=== PATIENT | female | born 1955 | race Caucasian/White ===

== ENCOUNTER → 2021-03-22 05:50 | Outpatient (REF) | payer MEDICAID, SELFPAY ==
[2021-03-22 08:38] LABS: Hematocrit 35.2 % (37-47); Hemoglobin 10.5 g/dL (12.0-15.0); Mean Corp Hgb Conc 29.8 g/dL (32-36); Mean Corpuscular Volume 97.2 fL (81-99); Mean Platelet Vol. 11.2 fl (6.2-12.0); Platelet Count 118 K/mm3 (150-450); RBC Distribution Width CV 17.2 % (11.6-14.6); RBC Distribution Width SD 59.1 fl (35.1-43.9); Red Blood Count 3.62 M/mm3 (4.2-5.4); White Blood Count 8.3 K/mm3 (4.4-11.0)
[2021-03-22 09:06] LABS: BUN 27 mg/dL (7-18); Creatinine, Serum 0.85 mg/dL (0.55-1.02); Glucose 181 mg/dL (74-106)
[2021-03-22 09:07] LABS: ALB/GLOB Ratio 0.8 RATIO (0.9-2.4); AST(SGOT) 12 U/L (15-37); Alanine Aminotransfer ALT/SGPT 13 U/L (13-56); Albumin, Serum 2.5 g/dL (3.2-5.0); Alkaline Phosphatase 75 U/L (45-117); Anion Gap 6 (5-15); BUN/Creat Ratio 31.7 RATIO (10-20); Calcium,Total 8.5 mg/dL (8.5-10.1); Chloride 105 mmol/L (98-107); EST Glomerular Filtration Rate 71 mL/min (>60); Est Glom Filt Rate - Afr Amer 86 mL/min (>60); Globulin 3.3 g/dL (2.2-4.2); Potassium 4.1 mmol/L (3.5-5.1); Protein, Total 5.8 g/dL (6.4-8.2); Sodium Level 140 mmol/L (136-145)
== END ==
LOC: OLS.SW500 05:50
PROVIDERS: Visit Provider Family Medicine
DX: E11.9 Type 2 diabetes mellitus without complications (principal); J44.9 Chronic obstructive pulmonary disease, unspecified
CPT/HCPCS: 36415; 80053; 85027

== ENCOUNTER → 2021-03-29 05:00 | Outpatient (REF) | payer MEDICAID, SELFPAY ==
[2021-03-29 08:14] LABS: Hematocrit 31.8 % (37-47); Mean Corp Hgb Conc 31.4 g/dL (32-36); Mean Corpuscular Volume 92.2 fL (81-99); Mean Platelet Vol. 10.8 fl (6.2-12.0); Platelet Count 163 K/mm3 (150-450); RBC Distribution Width SD 51.3 fl (35.1-43.9); Red Blood Count 3.45 M/mm3 (4.2-5.4); White Blood Count 8.2 K/mm3 (4.4-11.0)
[2021-03-29 08:23] LABS: ALB/GLOB Ratio 0.8 RATIO (0.9-2.4); AST(SGOT) 11 U/L (15-37); Alanine Aminotransfer ALT/SGPT 10 U/L (13-56); Albumin, Serum 2.6 g/dL (3.2-5.0); Alkaline Phosphatase 71 U/L (45-117); Anion Gap 4 (5-15); BUN 25 mg/dL (7-18); BUN/Creat Ratio 25.7 RATIO (10-20); Calcium,Total 8.9 mg/dL (8.5-10.1); Chloride 105 mmol/L (98-107); Creatinine, Serum 0.97 mg/dL (0.55-1.02); EST Glomerular Filtration Rate 61 mL/min (>60); Est Glom Filt Rate - Afr Amer 74 mL/min (>60); Globulin 3.4 g/dL (2.2-4.2); Glucose 261 mg/dL (74-106); Sodium Level 142 mmol/L (136-145)
== END ==
LOC: OLS.SW500 05:00
PROVIDERS: Visit Provider Family Medicine
DX: E11.9 Type 2 diabetes mellitus without complications (principal)
CPT/HCPCS: 36415; 80053; 85027

== ENCOUNTER → 2021-04-05 05:00 | Outpatient (REF) | payer MEDICAID, SELFPAY ==
[2021-04-05 07:45] LABS: Hematocrit 33.5 % (37-47); Hemoglobin 10.3 g/dL (12.0-15.0); Mean Corp Hgb Conc 30.7 g/dL (32-36); Mean Corpuscular Hgb 28.5 pg (27.0-32.0); Mean Corpuscular Volume 92.8 fL (81-99); Mean Platelet Vol. 10.7 fl (6.2-12.0); Platelet Count 210 K/mm3 (150-450); RBC Distribution Width CV 14.9 % (11.6-14.6); Red Blood Count 3.61 M/mm3 (4.2-5.4); White Blood Count 14.8 K/mm3 (4.4-11.0)
[2021-04-05 07:51] LABS: ALB/GLOB Ratio 0.8 RATIO (0.9-2.4); AST(SGOT) 12 U/L (15-37); Alanine Aminotransfer ALT/SGPT 11 U/L (13-56); Albumin, Serum 2.7 g/dL (3.2-5.0); Alkaline Phosphatase 95 U/L (45-117); Anion Gap 4 (5-15); BUN 25 mg/dL (7-18); BUN/Creat Ratio 25.2 RATIO (10-20); Calcium,Total 9.2 mg/dL (8.5-10.1); Chloride 104 mmol/L (98-107); Creatinine, Serum 0.99 mg/dL (0.55-1.02); EST Glomerular Filtration Rate 60 mL/min (>60); Est Glom Filt Rate - Afr Amer 72 mL/min (>60); Globulin 3.5 g/dL (2.2-4.2); Glucose 305 mg/dL (74-106); Potassium 4.1 mmol/L (3.5-5.1); Protein, Total 6.2 g/dL (6.4-8.2); Sodium Level 139 mmol/L (136-145)
== END ==
LOC: OLS.SW500 05:00
PROVIDERS: Visit Provider Family Medicine
DX: D64.9 Anemia, unspecified (principal); J44.9 Chronic obstructive pulmonary disease, unspecified; E11.9 Type 2 diabetes mellitus without complications
CPT/HCPCS: 36415; 80053; 85027

== ENCOUNTER → 2021-04-11 16:10 | Outpatient (REF) | payer MEDICAID, SELFPAY ==
[2021-04-11 16:35] LABS: Absolute Lymphocyte Count 1.03 X10^3/uL (0.83-4.51); Absolute Neutrophil Count 11.2 X10^3/uL (2.0-7.7); Basophil# 0.02 X10^3/uL; Basophil% 0.1 % (0-1); Eosinophil# 0.05 X10^3/uL; Eosinophils% 0.4 % (0-5); Hematocrit 32.1 % (37-47); Hemoglobin 9.9 g/dL (12.0-15.0); Lymphocyte # 1.03 X10^3/ul (0.83-4.51); Lymphocyte % 7.6 % (19-41); Mean Corp Hgb Conc 30.8 g/dL (32-36); Mean Corpuscular Hgb 28.4 pg (27.0-32.0); Mean Corpuscular Volume 92.2 fL (81-99); Mean Platelet Vol. 10.1 fl (6.2-12.0); Monocyte# 1.15 X10^3/uL; Monocyte% 8.5 % (0-10); NRBC Flagged by Analyzer 0 % (0-5); Neutrophil # 11.19 X10^3/uL (2.7-7.7); Neutrophil % 82.8 % (47-70); Platelet Count 177 K/mm3 (150-450); RBC Distribution Width CV 14.2 % (11.6-14.6); RBC Distribution Width SD 45.9 fl (35.1-43.9); Red Blood Count 3.48 M/mm3 (4.2-5.4); White Blood Count 13.5 K/mm3 (4.4-11.0)
[2021-04-11 16:58] LABS: Anion Gap 4 (5-15); BUN 21 mg/dL (7-18); BUN/Creat Ratio 21.4 RATIO (10-20); Calcium,Total 9.1 mg/dL (8.5-10.1); Chloride 103 mmol/L (98-107); Creatinine, Serum 0.98 mg/dL (0.55-1.02); EST Glomerular Filtration Rate 60 mL/min (>60); Est Glom Filt Rate - Afr Amer 73 mL/min (>60); Glucose 248 mg/dL (74-106); Potassium 4.4 mmol/L (3.5-5.1); Sodium Level 139 mmol/L (136-145)
== END ==
LOC: OLS.SW500 16:10
PROVIDERS: Visit Provider Family Medicine
DX: D50.0 Iron deficiency anemia secondary to blood loss (chronic) (principal)
CPT/HCPCS: 36415; 80048; 85025

== ENCOUNTER → 2021-04-12 05:00 | Outpatient (REF) | payer MEDICAID, SELFPAY ==
[2021-04-12 08:51] LABS: Hematocrit 31.2 % (37-47); Hemoglobin 9.5 g/dL (12.0-15.0); Mean Corp Hgb Conc 30.4 g/dL (32-36); Mean Corpuscular Hgb 28.4 pg (27.0-32.0); Mean Corpuscular Volume 93.1 fL (81-99); Mean Platelet Vol. 10.7 fl (6.2-12.0); Platelet Count 169 K/mm3 (150-450); RBC Distribution Width CV 14.2 % (11.6-14.6); RBC Distribution Width SD 46.9 fl (35.1-43.9); Red Blood Count 3.35 M/mm3 (4.2-5.4); White Blood Count 6.8 K/mm3 (4.4-11.0)
[2021-04-12 09:20] LABS: ALB/GLOB Ratio 0.9 RATIO (0.9-2.4); AST(SGOT) 12 U/L (15-37); Alanine Aminotransfer ALT/SGPT 9 U/L (13-56); Albumin, Serum 2.7 g/dL (3.2-5.0); Alkaline Phosphatase 82 U/L (45-117); Anion Gap 5 (5-15); BUN 22 mg/dL (7-18); BUN/Creat Ratio 23.7 RATIO (10-20); Calcium,Total 8.9 mg/dL (8.5-10.1); Chloride 104 mmol/L (98-107); Creatinine, Serum 0.93 mg/dL (0.55-1.02); EST Glomerular Filtration Rate 64 mL/min (>60); Est Glom Filt Rate - Afr Amer 78 mL/min (>60); Globulin 3.1 g/dL (2.2-4.2); Glucose 196 mg/dL (74-106); Protein, Total 5.8 g/dL (6.4-8.2); Sodium Level 139 mmol/L (136-145)
== END ==
LOC: OLS.SW500 05:00
PROVIDERS: Visit Provider Family Medicine
DX: I48.91 Unspecified atrial fibrillation (principal); J44.9 Chronic obstructive pulmonary disease, unspecified; E11.9 Type 2 diabetes mellitus without complications
CPT/HCPCS: 36415; 80053; 85027

== ENCOUNTER → 2021-04-16 04:50 | Outpatient (REF) | payer MEDICAID, SELFPAY ==
[2021-04-16 09:34] LABS: Mucous, Urine 0 SEEN /hpf (<or=2+)
[2021-04-16 10:15] LABS: Color, Urine Yellow (Yellow); Glucose, Dipstick Normal (Normal); Ketone-Dipstick 50 mg/dl (Negative); Leukocyte Esterase-Dipstick 500 /ul (Negative); Nitrite-Dipstick Positive (Negative); Occult Blood-Urine 150 /ul (Negative); Protein-Dipstick 30 mg/dl (Negative); Specific Gravity, Urine 1.025 (1.002-1.030); Urine Bilirubin Dipstick Negative (Negative); Urine Clarity Cloudy (Clear); Urine Urobilinogen Normal (Normal)
[2021-04-16 10:31] LABS: Bacteria 4+ /hpf (None Seen); Calcium Oxalate Crystals Ur 1+ /hpf (<or=2+); Red Blood Cells-Urine 10-25 SEEN /hpf (0-5); Squamous Epithelial Cells - UA 0-5 SEEN /hpf (5-10); White Blood Cells >100 SEEN /hpf (0-5)
== END ==
LOC: OLS.SW500 04:50
PROVIDERS: Referring Provider Family Medicine; Visit Provider Family Medicine
DX: N39.0 Urinary tract infection, site not specified (principal); E11.9 Type 2 diabetes mellitus without complications; R10.30 Lower abdominal pain, unspecified
CPT/HCPCS: 81001; 87086; 87088

== ENCOUNTER → 2021-04-19 05:00 | Outpatient (REF) | payer MEDICAID, SELFPAY ==
[2021-04-19 08:07] LABS: Hematocrit 33.8 % (37-47); Hemoglobin 10.4 g/dL (12.0-15.0); Mean Corp Hgb Conc 30.8 g/dL (32-36); Mean Corpuscular Volume 91.1 fL (81-99); Mean Platelet Vol. 10.6 fl (6.2-12.0); Platelet Count 143 K/mm3 (150-450); RBC Distribution Width CV 13.9 % (11.6-14.6); RBC Distribution Width SD 46.7 fl (35.1-43.9); Red Blood Count 3.71 M/mm3 (4.2-5.4); White Blood Count 6.7 K/mm3 (4.4-11.0)
[2021-04-19 08:47] LABS: AST(SGOT) 15 U/L (15-37); Alanine Aminotransfer ALT/SGPT 9 U/L (13-56); Albumin, Serum 2.9 g/dL (3.2-5.0); Alkaline Phosphatase 80 U/L (45-117); Anion Gap 3 (5-15); BUN 16 mg/dL (7-18); BUN/Creat Ratio 18.1 RATIO (10-20); Calcium,Total 8.5 mg/dL (8.5-10.1); Chloride 104 mmol/L (98-107); Creatinine, Serum 0.88 mg/dL (0.55-1.02); EST Glomerular Filtration Rate 68 mL/min (>60); Est Glom Filt Rate - Afr Amer 83 mL/min (>60); Glucose 146 mg/dL (74-106); Potassium 3.5 mmol/L (3.5-5.1); Protein, Total 5.9 g/dL (6.4-8.2); Sodium Level 140 mmol/L (136-145)
== END ==
LOC: OLS.SW500 05:00
PROVIDERS: Visit Provider Family Medicine
DX: D64.9 Anemia, unspecified (principal)
CPT/HCPCS: 36415; 80053; 85027

== ENCOUNTER → 2021-04-26 05:00 | Outpatient (REF) | payer MEDICAID, SELFPAY ==
[2021-04-26 08:03] LABS: Hematocrit 36.2 % (37-47); Mean Corp Hgb Conc 30.4 g/dL (32-36); Mean Corpuscular Hgb 27.8 pg (27.0-32.0); Mean Corpuscular Volume 91.6 fL (81-99); Mean Platelet Vol. 10.8 fl (6.2-12.0); Platelet Count 127 K/mm3 (150-450); RBC Distribution Width CV 13.8 % (11.6-14.6); RBC Distribution Width SD 46.4 fl (35.1-43.9); Red Blood Count 3.95 M/mm3 (4.2-5.4); White Blood Count 6.3 K/mm3 (4.4-11.0)
[2021-04-26 08:28] LABS: ALB/GLOB Ratio 0.9 RATIO (0.9-2.4); AST(SGOT) 14 U/L (15-37); Alanine Aminotransfer ALT/SGPT 10 U/L (13-56); Albumin, Serum 2.7 g/dL (3.2-5.0); Alkaline Phosphatase 73 U/L (45-117); Anion Gap 3 (5-15); BUN 13 mg/dL (7-18); BUN/Creat Ratio 15.8 RATIO (10-20); Calcium,Total 8.7 mg/dL (8.5-10.1); Chloride 108 mmol/L (98-107); Creatinine, Serum 0.82 mg/dL (0.55-1.02); EST Glomerular Filtration Rate 74 mL/min (>60); Est Glom Filt Rate - Afr Amer 90 mL/min (>60); Globulin 3.1 g/dL (2.2-4.2); Glucose 120 mg/dL (74-106); Potassium 3.7 mmol/L (3.5-5.1); Protein, Total 5.8 g/dL (6.4-8.2); Sodium Level 141 mmol/L (136-145)
== END ==
LOC: OLS.SW500 05:00
PROVIDERS: Visit Provider Family Medicine
DX: D50.0 Iron deficiency anemia secondary to blood loss (chronic) (principal); J44.9 Chronic obstructive pulmonary disease, unspecified; K56.7 Ileus, unspecified
CPT/HCPCS: 36415; 80053; 85027

== ENCOUNTER → 2021-05-03 05:00 | Outpatient (REF) | payer MEDICAID, SELFPAY ==
[2021-05-03 07:24] LABS: Hematocrit 37.5 % (37-47); Hemoglobin 11.2 g/dL (12.0-15.0); Mean Corp Hgb Conc 29.9 g/dL (32-36); Mean Corpuscular Hgb 27.5 pg (27.0-32.0); Mean Corpuscular Volume 91.9 fL (81-99); Mean Platelet Vol. 11.1 fl (6.2-12.0); Platelet Count 124 K/mm3 (150-450); RBC Distribution Width CV 13.9 % (11.6-14.6); Red Blood Count 4.08 M/mm3 (4.2-5.4); White Blood Count 5.7 K/mm3 (4.4-11.0)
[2021-05-03 07:58] LABS: ALB/GLOB Ratio 0.8 RATIO (0.9-2.4); AST(SGOT) 13 U/L (15-37); Alanine Aminotransfer ALT/SGPT 8 U/L (13-56); Albumin, Serum 2.6 g/dL (3.2-5.0); Alkaline Phosphatase 87 U/L (45-117); Anion Gap 3 (5-15); BUN 15 mg/dL (7-18); BUN/Creat Ratio 15.3 RATIO (10-20); Calcium,Total 8.8 mg/dL (8.5-10.1); Chloride 105 mmol/L (98-107); Creatinine, Serum 0.98 mg/dL (0.55-1.02); EST Glomerular Filtration Rate 61 mL/min (>60); Est Glom Filt Rate - Afr Amer 73 mL/min (>60); Globulin 3.1 g/dL (2.2-4.2); Glucose 191 mg/dL (74-106); Potassium 3.9 mmol/L (3.5-5.1); Protein, Total 5.7 g/dL (6.4-8.2); Sodium Level 140 mmol/L (136-145)
== END ==
LOC: OLS.SW500 05:00
PROVIDERS: Visit Provider Family Medicine
DX: D64.9 Anemia, unspecified (principal); I11.0 Hypertensive heart disease with heart failure; I50.9 Heart failure, unspecified; J44.9 Chronic obstructive pulmonary disease, unspecified; N39.0 Urinary tract infection, site not specified; E11.9 Type 2 diabetes mellitus without complications
CPT/HCPCS: 36415; 80053; 85027

== ENCOUNTER → 2021-05-10 05:00 | Outpatient (REF) | payer MEDICAID, SELFPAY ==
[2021-05-10 08:11] LABS: Hematocrit 36.1 % (37-47); Hemoglobin 11.1 g/dL (12.0-15.0); Mean Corp Hgb Conc 30.7 g/dL (32-36); Mean Corpuscular Hgb 27.7 pg (27.0-32.0); Mean Platelet Vol. 10.8 fl (6.2-12.0); Platelet Count 132 K/mm3 (150-450); RBC Distribution Width CV 13.9 % (11.6-14.6); RBC Distribution Width SD 45.8 fl (35.1-43.9); Red Blood Count 4.01 M/mm3 (4.2-5.4); White Blood Count 4.9 K/mm3 (4.4-11.0)
[2021-05-10 08:24] LABS: ALB/GLOB Ratio 0.9 RATIO (0.9-2.4); AST(SGOT) 14 U/L (15-37); Alanine Aminotransfer ALT/SGPT 12 U/L (13-56); Albumin, Serum 2.5 g/dL (3.2-5.0); Alkaline Phosphatase 75 U/L (45-117); Anion Gap 3 (5-15); BUN 15 mg/dL (7-18); BUN/Creat Ratio 19.4 RATIO (10-20); Calcium,Total 8.7 mg/dL (8.5-10.1); Chloride 106 mmol/L (98-107); Creatinine, Serum 0.78 mg/dL (0.55-1.02); EST Glomerular Filtration Rate 79 mL/min (>60); Est Glom Filt Rate - Afr Amer 96 mL/min (>60); Globulin 2.9 g/dL (2.2-4.2); Glucose 173 mg/dL (74-106); Potassium 3.5 mmol/L (3.5-5.1); Protein, Total 5.4 g/dL (6.4-8.2); Sodium Level 143 mmol/L (136-145)
[2021-05-10 09:48] LABS: Hemoglobin A1c 6.9 % (3.8-5.6)
== END ==
LOC: OLS.SW500 05:00
PROVIDERS: Visit Provider Family Medicine
DX: D64.9 Anemia, unspecified (principal); E11.9 Type 2 diabetes mellitus without complications
CPT/HCPCS: 36415; 80053; 83036; 85027

== ENCOUNTER → 2021-05-17 05:00 | Outpatient (REF) | payer MEDICAID, SELFPAY ==
[2021-05-17 07:35] LABS: Hematocrit 38.4 % (37-47); Hemoglobin 11.9 g/dL (12.0-15.0); Mean Corpuscular Hgb 27.3 pg (27.0-32.0); Mean Corpuscular Volume 88.1 fL (81-99); Mean Platelet Vol. 11.3 fl (6.2-12.0); Platelet Count 109 K/mm3 (150-450); RBC Distribution Width CV 13.5 % (11.6-14.6); RBC Distribution Width SD 44.1 fl (35.1-43.9); Red Blood Count 4.36 M/mm3 (4.2-5.4); White Blood Count 8.7 K/mm3 (4.4-11.0)
[2021-05-17 07:48] LABS: ALB/GLOB Ratio 0.9 RATIO (0.9-2.4); AST(SGOT) 11 U/L (15-37); Alanine Aminotransfer ALT/SGPT 12 U/L (13-56); Albumin, Serum 2.7 g/dL (3.2-5.0); Alkaline Phosphatase 74 U/L (45-117); Anion Gap 0 (5-15); BUN 20 mg/dL (7-18); BUN/Creat Ratio 20.7 RATIO (10-20); Calcium,Total 9.1 mg/dL (8.5-10.1); Chloride 105 mmol/L (98-107); Creatinine, Serum 0.97 mg/dL (0.55-1.02); EST Glomerular Filtration Rate 61 mL/min (>60); Est Glom Filt Rate - Afr Amer 74 mL/min (>60); Glucose 187 mg/dL (74-106); Protein, Total 5.7 g/dL (6.4-8.2); Sodium Level 141 mmol/L (136-145)
== END ==
LOC: OLS.SW500 05:00
PROVIDERS: Visit Provider Family Medicine
DX: I10 Essential (primary) hypertension (principal); D64.9 Anemia, unspecified
CPT/HCPCS: 36415; 80053; 85027

== ENCOUNTER → 2021-05-24 05:00 | Outpatient (REF) | payer MEDICAID, SELFPAY ==
[2021-05-24 07:48] LABS: Hematocrit 33.5 % (37-47); Hemoglobin 10.3 g/dL (12.0-15.0); Mean Corp Hgb Conc 30.7 g/dL (32-36); Mean Corpuscular Hgb 27.1 pg (27.0-32.0); Mean Corpuscular Volume 88.2 fL (81-99); Mean Platelet Vol. 10.3 fl (6.2-12.0); Platelet Count 143 K/mm3 (150-450); RBC Distribution Width CV 13.4 % (11.6-14.6); RBC Distribution Width SD 43.7 fl (35.1-43.9); White Blood Count 5.6 K/mm3 (4.4-11.0)
[2021-05-24 08:03] LABS: ALB/GLOB Ratio 0.8 RATIO (0.9-2.4); AST(SGOT) 13 U/L (15-37); Alanine Aminotransfer ALT/SGPT 12 U/L (13-56); Albumin, Serum 2.4 g/dL (3.2-5.0); Alkaline Phosphatase 70 U/L (45-117); Anion Gap 3 (5-15); BUN 15 mg/dL (7-18); BUN/Creat Ratio 23.6 RATIO (10-20); Calcium,Total 8.4 mg/dL (8.5-10.1); Chloride 106 mmol/L (98-107); Creatinine, Serum 0.64 mg/dL (0.55-1.02); EST Glomerular Filtration Rate 100 mL/min (>60); Est Glom Filt Rate - Afr Amer 120 mL/min (>60); Globulin 2.9 g/dL (2.2-4.2); Glucose 98 mg/dL (74-106); Potassium 4.2 mmol/L (3.5-5.1); Protein, Total 5.3 g/dL (6.4-8.2); Sodium Level 141 mmol/L (136-145)
== END ==
LOC: OLS.SW500 05:00
PROVIDERS: Visit Provider Family Medicine
DX: D64.9 Anemia, unspecified (principal); J44.9 Chronic obstructive pulmonary disease, unspecified; N39.0 Urinary tract infection, site not specified; E11.9 Type 2 diabetes mellitus without complications
CPT/HCPCS: 36415; 80053; 85027

== ENCOUNTER → 2021-05-26 05:50 | Outpatient (REF) | payer MEDICAID, SELFPAY ==
[2021-05-31 13:20] LABS: Calprotectin, Stool 132 ug/g (0-120)
== END ==
LOC: OLS.SW500 05:50
PROVIDERS: Visit Provider Family Medicine
DX: R19.7 Diarrhea, unspecified (principal); Z86.19 Personal history of other infectious and parasitic diseases; R11.10 Vomiting, unspecified; K59.9 Functional intestinal disorder, unspecified; R19.5 Other fecal abnormalities
CPT/HCPCS: 83993; 87493; 87506

== ENCOUNTER → 2021-05-31 05:00 | Outpatient (REF) | payer MEDICAID, SELFPAY ==
[2021-05-31 08:44] LABS: Hematocrit 35.8 % (37-47); Hemoglobin 10.9 g/dL (12.0-15.0); Mean Corp Hgb Conc 30.4 g/dL (32-36); Mean Corpuscular Hgb 26.5 pg (27.0-32.0); Mean Corpuscular Volume 86.9 fL (81-99); Platelet Count 127 K/mm3 (150-450); RBC Distribution Width CV 13.6 % (11.6-14.6); RBC Distribution Width SD 43.5 fl (35.1-43.9); Red Blood Count 4.12 M/mm3 (4.2-5.4); White Blood Count 9.1 K/mm3 (4.4-11.0)
[2021-05-31 08:58] LABS: ALB/GLOB Ratio 0.7 RATIO (0.9-2.4); AST(SGOT) 15 U/L (15-37); Alanine Aminotransfer ALT/SGPT 11 U/L (13-56); Albumin, Serum 2.5 g/dL (3.2-5.0); Alkaline Phosphatase 90 U/L (45-117); Anion Gap 7 (5-15); BUN 17 mg/dL (7-18); BUN/Creat Ratio 26.4 RATIO (10-20); Chloride 102 mmol/L (98-107); Creatinine, Serum 0.64 mg/dL (0.55-1.02); EST Glomerular Filtration Rate 98 mL/min (>60); Est Glom Filt Rate - Afr Amer 119 mL/min (>60); Globulin 3.4 g/dL (2.2-4.2); Glucose 83 mg/dL (74-106); Potassium 3.2 mmol/L (3.5-5.1); Protein, Total 5.9 g/dL (6.4-8.2); Sodium Level 140 mmol/L (136-145)
== END ==
LOC: OLS.SW500 05:00
PROVIDERS: Referring Provider Family Medicine; Visit Provider Family Medicine
DX: E11.9 Type 2 diabetes mellitus without complications (principal); D64.9 Anemia, unspecified
CPT/HCPCS: 36415; 80053; 85027

== ENCOUNTER → 2021-06-07 05:00 | Outpatient (REF) | payer MEDICAID, SELFPAY ==
[2021-06-07 08:41] LABS: Hematocrit 33.9 % (37-47); Hemoglobin 10.5 g/dL (12.0-15.0); Mean Corpuscular Hgb 26.9 pg (27.0-32.0); Mean Corpuscular Volume 86.7 fL (81-99); Mean Platelet Vol. 10.4 fl (6.2-12.0); Platelet Count 172 K/mm3 (150-450); RBC Distribution Width CV 13.8 % (11.6-14.6); RBC Distribution Width SD 43.9 fl (35.1-43.9); Red Blood Count 3.91 M/mm3 (4.2-5.4); White Blood Count 6.1 K/mm3 (4.4-11.0)
[2021-06-07 09:02] LABS: ALB/GLOB Ratio 0.7 RATIO (0.9-2.4); AST(SGOT) 13 U/L (15-37); Alanine Aminotransfer ALT/SGPT 12 U/L (13-56); Albumin, Serum 2.2 g/dL (3.2-5.0); Alkaline Phosphatase 86 U/L (45-117); Anion Gap 2 (5-15); BUN 10 mg/dL (7-18); BUN/Creat Ratio 17.4 RATIO (10-20); Calcium,Total 8.5 mg/dL (8.5-10.1); Chloride 106 mmol/L (98-107); Creatinine, Serum 0.57 mg/dL (0.55-1.02); EST Glomerular Filtration Rate 112 mL/min (>60); Est Glom Filt Rate - Afr Amer 136 mL/min (>60); Globulin 3.2 g/dL (2.2-4.2); Glucose 124 mg/dL (74-106); Potassium 3.4 mmol/L (3.5-5.1); Protein, Total 5.4 g/dL (6.4-8.2); Sodium Level 141 mmol/L (136-145)
== END ==
LOC: OLS.SW500 05:00
PROVIDERS: Visit Provider Family Medicine
DX: E11.9 Type 2 diabetes mellitus without complications (principal); D64.9 Anemia, unspecified
CPT/HCPCS: 36415; 80053; 85027

== ENCOUNTER → 2021-06-14 05:00 | Outpatient (REF) | payer MEDICAID, SELFPAY ==
[2021-06-14 08:25] LABS: Hematocrit 30.1 % (37-47); Mean Corp Hgb Conc 29.9 g/dL (32-36); Mean Corpuscular Hgb 26.4 pg (27.0-32.0); Mean Corpuscular Volume 88.3 fL (81-99); Mean Platelet Vol. 10.6 fl (6.2-12.0); Platelet Count 149 K/mm3 (150-450); RBC Distribution Width CV 14.4 % (11.6-14.6); RBC Distribution Width SD 46.4 fl (35.1-43.9); Red Blood Count 3.41 M/mm3 (4.2-5.4); White Blood Count 6.6 K/mm3 (4.4-11.0)
[2021-06-14 09:44] LABS: ALB/GLOB Ratio 0.8 RATIO (0.9-2.4); AST(SGOT) 10 U/L (15-37); Alanine Aminotransfer ALT/SGPT 7 U/L (13-56); Albumin, Serum 2.1 g/dL (3.2-5.0); Alkaline Phosphatase 70 U/L (45-117); Anion Gap 2 (5-15); BUN 21 mg/dL (7-18); BUN/Creat Ratio 31.2 RATIO (10-20); Chloride 113 mmol/L (98-107); Creatinine, Serum 0.67 mg/dL (0.55-1.02); EST Glomerular Filtration Rate 93 mL/min (>60); Est Glom Filt Rate - Afr Amer 113 mL/min (>60); Globulin 2.8 g/dL (2.2-4.2); Glucose 152 mg/dL (74-106); Potassium 3.3 mmol/L (3.5-5.1); Protein, Total 4.9 g/dL (6.4-8.2); Sodium Level 145 mmol/L (136-145)
== END ==
LOC: OLS.SW500 05:00
PROVIDERS: Visit Provider Family Medicine
DX: E11.22 Type 2 diabetes mellitus with diabetic chronic kidney disease (principal); D64.9 Anemia, unspecified; N18.30 Chronic kidney disease, stage 3 unspecified
CPT/HCPCS: 36415; 80053; 85027

== ENCOUNTER → 2021-06-21 05:00 | Outpatient (REF) | payer MEDICAID, SELFPAY ==
[2021-06-21 07:24] LABS: Hematocrit 30.7 % (37-47); Hemoglobin 9.3 g/dL (12.0-15.0); Mean Corp Hgb Conc 30.3 g/dL (32-36); Mean Corpuscular Hgb 26.8 pg (27.0-32.0); Mean Corpuscular Volume 88.5 fL (81-99); Platelet Count 144 K/mm3 (150-450); RBC Distribution Width CV 15.7 % (11.6-14.6); RBC Distribution Width SD 49.7 fl (35.1-43.9); Red Blood Count 3.47 M/mm3 (4.2-5.4); White Blood Count 4.2 K/mm3 (4.4-11.0)
[2021-06-21 07:45] LABS: ALB/GLOB Ratio 0.8 RATIO (0.9-2.4); AST(SGOT) 15 U/L (15-37); Alanine Aminotransfer ALT/SGPT 12 U/L (13-56); Alkaline Phosphatase 79 U/L (45-117); Anion Gap 2 (5-15); BUN 13 mg/dL (7-18); BUN/Creat Ratio 21.7 RATIO (10-20); Calcium,Total 8.1 mg/dL (8.5-10.1); Chloride 110 mmol/L (98-107); EST Glomerular Filtration Rate 106 mL/min (>60); Est Glom Filt Rate - Afr Amer 129 mL/min (>60); Globulin 2.6 g/dL (2.2-4.2); Glucose 165 mg/dL (74-106); Potassium 3.4 mmol/L (3.5-5.1); Protein, Total 4.6 g/dL (6.4-8.2); Sodium Level 143 mmol/L (136-145)
== END ==
LOC: OLS.SW500 05:00
PROVIDERS: Visit Provider Family Medicine
DX: D64.9 Anemia, unspecified (principal); J44.9 Chronic obstructive pulmonary disease, unspecified; E11.9 Type 2 diabetes mellitus without complications
CPT/HCPCS: 36415; 80053; 85027

== ENCOUNTER → 2021-06-28 05:00 | Outpatient (REF) | payer MEDICAID, SELFPAY ==
[2021-06-28 07:27] LABS: Hematocrit 32.2 % (37-47); Hemoglobin 10.1 g/dL (12.0-15.0); Mean Corp Hgb Conc 31.4 g/dL (32-36); Mean Corpuscular Hgb 27.6 pg (27.0-32.0); Mean Platelet Vol. 11.8 fl (6.2-12.0); Platelet Count 122 K/mm3 (150-450); RBC Distribution Width CV 17.4 % (11.6-14.6); RBC Distribution Width SD 56.1 fl (35.1-43.9); Red Blood Count 3.66 M/mm3 (4.2-5.4); White Blood Count 6.6 K/mm3 (4.4-11.0)
[2021-06-28 08:01] LABS: ALB/GLOB Ratio 0.7 RATIO (0.9-2.4); AST(SGOT) 14 U/L (15-37); Alanine Aminotransfer ALT/SGPT 9 U/L (13-56); Albumin, Serum 2.1 g/dL (3.2-5.0); Alkaline Phosphatase 79 U/L (45-117); Anion Gap 3 (5-15); BUN 12 mg/dL (7-18); BUN/Creat Ratio 19.1 RATIO (10-20); Chloride 110 mmol/L (98-107); Creatinine, Serum 0.63 mg/dL (0.55-1.02); EST Glomerular Filtration Rate 101 mL/min (>60); Est Glom Filt Rate - Afr Amer 122 mL/min (>60); Globulin 2.9 g/dL (2.2-4.2); Glucose 107 mg/dL (74-106); Sodium Level 143 mmol/L (136-145)
== END ==
LOC: OLS.SW500 05:00
PROVIDERS: Visit Provider Family Medicine
DX: D64.9 Anemia, unspecified (principal)
CPT/HCPCS: 36415; 80053; 85027

== ENCOUNTER 2021-06-29 13:25 | Inpatient (IN) | payer MEDICAID, SELFPAY ==
[2021-06-29] VITALS (11 sets, daily range): BP systolic 98–137; BP diastolic 40–77; PULSE 66–96; RESP 16–29; TEMP 35–37.1; O2SAT 90–100; BMI 17.0; BMI 15.9
--- NOTE | 2021-06-29 13:41 | CT_ITS ---
STUDY: CT BRAIN WITHOUT CONTRAST REASON FOR EXAM: Female, 65 years old. Head injury due to a fall. RADIATION DOSAGE (If Supplied By Facility): CTDIvol = ( 38.43 ) mGy, DLP = ( 669.46 ) mGycm TECHNIQUE: Transaxial CT imaging of the brain was performed without administration of intravenous contrast material. Individualized dose optimization techniques were used for this CT. COMPARISON: No relevant priors. FINDINGS: Normal soft tissue structures. Normal calvarium. There is mild cerebral atrophy with widening of the extra-axial spaces and ventricular dilatation. Focal encephalomalacia in the posterior right parietal lobe suggestive of old infarction. Normal basal ganglia and thalami. Normal brainstem. Normal cerebellum. There is no intracranial hemorrhage. There are no findings of an acute ischemic infarction. Mild degree of mucosal thickening of the ethmoid sinuses. CT/Brain/Head without Contrast IMPRESSION: Chronic involutional changes of the brain. Electronically Signed: Elijah Griffin MD at 14:34 EDT , Service support ,
--- NOTE | 2021-06-29 13:42 | EKG12_ITS ---
Test Reason : MS Blood Pressure : / mmHG Vent. Rate : 077 BPM Atrial Rate : 077 BPM P-R Int : 166 ms QRS Dur : 124 ms QT Int : 452 ms P-R-T Axes : 075 -64 050 degrees QTc Int : 511 ms Normal sinus rhythm Left anterior fascicular block Anteroseptal infarct , age undetermined Abnormal ECG Confirmed by TREVOR LAWLER, FORD ([id number]), staff editor HERMAN PINEDA ([id number]) on 07/02/2021 2:14:51 PM Referred By: Confirmed By:FORD MURRAY MD
--- NOTE | 2021-06-29 13:45 | NURSING ---
NO OLD EKGS
[2021-06-29 13:54] LABS: Absolute Lymphocyte Count 1.12 X10^3/uL (0.83-4.51); Absolute Neutrophil Count 6.7 X10^3/uL (2.0-7.7); Basophil# 0.02 X10^3/uL; Basophil% 0.2 % (0-1); Eosinophil# 0.04 X10^3/uL; Eosinophils% 0.5 % (0-5); Hemoglobin 10.9 g/dL (12.0-15.0); Lymphocyte # 1.12 X10^3/ul (0.83-4.51); Lymphocyte % 12.9 % (19-41); Mean Corp Hgb Conc 30.3 g/dL (32-36); Mean Corpuscular Hgb 26.7 pg (27.0-32.0); Mean Platelet Vol. 11.4 fl (6.2-12.0); Monocyte# 0.79 X10^3/uL; Monocyte% 9.1 % (0-10); NRBC Flagged by Analyzer 0 % (0-5); Neutrophil # 6.69 X10^3/uL (2.7-7.7); Neutrophil % 76.8 % (47-70); Platelet Count 120 K/mm3 (150-450); RBC Distribution Width CV 17.5 % (11.6-14.6); RBC Distribution Width SD 55.9 fl (35.1-43.9); Red Blood Count 4.09 M/mm3 (4.2-5.4); White Blood Count 8.7 K/mm3 (4.4-11.0)
[2021-06-29] MEDS: Dextrose 50%-Water 25 GM/50 ML DISP.SYRIN IV (14:02)
[2021-06-29] MEDS: 0.9% Normal Saline 1,000 ML 1000 ML IV (14:02)
[2021-06-29 14:06] LABS: Bedside Glucose 190 mg/dL (70-110)
--- NOTE | 2021-06-29 14:19 | ED.RN ---
Called daughter to give an update to let know she is here and we are waiting on tests and has woken up since getting the sugar but went to voicemail. LMOM and let her know will call back with update once all is back
--- NOTE | 2021-06-29 14:21 | EDS_ITS ---
HPI History of Present Illness Chief Complaint: Mental Status Change Informant: EMS and SNF Narrative Narrative: 65-year-old female who reportedly sustained a fall during the night. Was reported that she has had decrease in mental status throughout the the morning. Arriving in the emergency department the patient is unresponsive. EMS notes a low blood sugar in route to the hospital. Patient does have a history of diabetes and appears to be on a sliding scale insulin. Do not know she received insulin today or she has eaten. PFSH PFSH Home Medications Lactobacillus acidophilus [Acidophilus] 100 mmu cells PO DAILY 06/29/21 [History Last Taken Unknown] atorvastatin 40 mg PO QHS 06/29/21 [History Last Taken Unknown] bisacodyl [Dulcolax (bisacodyl)] 10 mg PO BID 06/29/21 [History Last Taken Unknown] buspirone 5 mg PO TID 06/29/21 [History Last Taken Unknown] ferrous sulfate 325 mg PO DAILY 06/29/21 [History Last Taken Unknown] gabapentin 300 mg PO DAILY 06/29/21 [History Last Taken Unknown] insulin regular human [Humulin R Regular U-100 Insuln] 06/29/21 [History Last Taken Unknown] lamotrigine [Lamictal] 100 mg PO DAILY 06/29/21 [History Last Taken Unknown] loratadine 10 mg PO DAILY 06/29/21 [History Last Taken Unknown] melatonin 6 mg PO DAILY 06/29/21 [History Last Taken Unknown] ondansetron HCl [Zofran] 4 mg PO Q8H PRN PRN 06/29/21 [History Last Taken Unknown] oxybutynin chloride 10 mg PO DAILY 06/29/21 [History Last Taken Unknown] pantoprazole 40 mg PO DAILY 06/29/21 [History Last Taken Unknown] sertraline 75 mg PO DAILY 06/29/21 [History Last Taken Unknown] Allergy/AdvReac Type Severity Reaction Status Date / Time morphine Allergy NEEDS Verified 06/29/21 13:35 FOLLOW-UP shellfish derived Allergy NEEDS Verified 06/29/21 13:35 FOLLOW-UP tositumomab Allergy NEEDS Verified 06/29/21 13:35 FOLLOW-UP vancomycin Allergy NEEDS Verified 06/29/21 13:35 FOLLOW-UP Social History (Updated 06/29/21 @ 14:[address] Doc Tolentino DO) housing: assisted Smoking Status: Never smoker substance use type: does not use ROS ROS ED Review of Systems ROS Unobtainable: due to mental status EXAM Physical Exam Narrative Exam Narrative: Patient is unresponsive laying in the bed. She does withdraw slightly to pain Const Vital Signs: 06/29/21 13:27 06/29/21 14:04 Temperature 97.2 F L Temperature Source Temporal Pulse Rate 96 Respiratory Rate 29 H Blood Pressure 98/54 L Blood Pressure Mean 68 Pulse Ox 90 95 Oxygen Delivery Method Room Air Room Air Positive well nourished and well developed General Appearance ED: well developed HEENT Reports normocephalic, head/scalp atraumatic, TM's clear and moist mucous membranes HEENT Narrative: There is a dried area of blood on the left eyebrow laterally trauma Tympanic Membrane ED: Yes TM's clear Eyes PERRL Eyes Narrative: Positive corneal reflex Neck no lymphadenopathy, supple and no JVD Resp clear to auscultation bilaterally Resp Narrative: Effort Cardio regular rate, regular rhythm and no murmurs GI normal to inspection, nondistended, normoactive bowel sounds and non-tender Palpation: soft Narrative: Indwelling Cage catheter Back/Spine normal ROM Extremity normal to inspection General Extremety ED: Negative for edema General Extremity: Negative for edema Neuro Neuro Narrative: GCS 6 Skin no rashes or lesions noted and no wounds MDM MDM MDM Narrative Medical decision making narrative: Upon arrival to the emergency department her blood sugar is 18. She received 25 g of D50. She did have improvement in mental status was still rather weak. Recheck her blood sugar is now 190. Patient is able to open her eyes and tells me that she did not eat today but then she quickly falls asleep again. Potassium noted to be 2.6. She was placed on D5 normal saline. Give potassium supplementation. CT of the brain was negative for hemorrhage. I am going to speak with the hospitalist regarding admission. Urine results are still pending. Lab Data Attestation: I reviewed the patient's lab results. Labs: Laboratory Results - last 24 hr 06/29/21 06/29/21 06/29/21 13:40 13:40 13:56 WBC 8.7 RBC 4.09 L Hgb 10.9 L Hct 36.0 L MCV 88.0 MCH 26.7 L MCHC 30.3 L RDW Std Deviation 55.9 H RDW Coeff of Enrike 17.5 H Plt Count 120 L MPV 11.4 Immature Gran % (Auto) 0.500 Neut % (Auto) 76.8 H Lymph % (Auto) 12.9 L [place] % (Auto) 9.1 Eos % (Auto) 0.5 Baso % (Auto) 0.2 Absolute Neuts (auto) 6.7 Absolute Lymphs (auto) 1.12 Nucleated RBC % 0 Sodium 145 Potassium 2.6 L* Chloride 110 H Carbon Dioxide 31.0 Anion Gap 4 L BUN 16 Creatinine 0.93 Estim Creat Clear Calc 42.94 Est GFR (MDRD) Af Amer 78 Est GFR (MDRD) Non-Af 64 BUN/Creatinine Ratio 17.3 Glucose 17 L* Lactic Acid 1.7 Calcium 8.7 Total Bilirubin 0.40 AST 16 ALT 14 Alkaline Phosphatase 99 Troponin I High Sens 8 Total Protein 6.2 L Albumin 2.7 L Globulin 3.5 Albumin/Globulin Ratio 0.8 L POC Glucose 06/29/21 14:00 WBC RBC Hgb Hct MCV MCH MCHC RDW Std Deviation RDW Coeff of Enrike Plt Count MPV Immature Gran % (Auto) Neut % (Auto) Lymph % (Auto) [place] % (Auto) Eos % (Auto) Baso % (Auto) Absolute Neuts (auto) Absolute Lymphs (auto) Nucleated RBC % Sodium Potassium Chloride Carbon Dioxide Anion Gap BUN Creatinine Estim Creat Clear Calc Est GFR (MDRD) Af Amer Est GFR (MDRD) Non-Af BUN/Creatinine Ratio Glucose Lactic Acid Calcium Total Bilirubin AST ALT Alkaline Phosphatase Troponin I High Sens Total Protein Albumin Globulin Albumin/Globulin Ratio POC Glucose 190 H Radiography Diagnostic Testing: Radiology Impression Brain CT 06/29/21 13:41 IMPRESSION: Chronic involutional changes of the brain. Electronically Signed: Elijah Griffin MD at 14:34 EDT , Service support , EKG Initial EKG: Attestation: I personally reviewed and interpreted this EKG as follows: Comments: Normal sinus rhythm with a ventricular rate at 77 bpm. Left anterior fascicular block noted Discharge Plan Dx/Rx/DC Orders Clinical Impression: Hypoglycemia due to type 2 diabetes mellitus, Acute hypokalemia, Encephalopathy acute Disposition Disposition: Acute Care Hospital [facility]
[2021-06-29 14:25] LABS: ALB/GLOB Ratio 0.8 RATIO (0.9-2.4); AST(SGOT) 16 U/L (15-37); Alanine Aminotransfer ALT/SGPT 14 U/L (13-56); Albumin, Serum 2.7 g/dL (3.2-5.0); Alkaline Phosphatase 99 U/L (45-117); Anion Gap 4 (5-15); BUN 16 mg/dL (7-18); BUN/Creat Ratio 17.3 RATIO (10-20); Calcium,Total 8.7 mg/dL (8.5-10.1); Chloride 110 mmol/L (98-107); Creatinine, Serum 0.93 mg/dL (0.55-1.02); EST Glomerular Filtration Rate 64 mL/min (>60); Est Glom Filt Rate - Afr Amer 78 mL/min (>60); Estimated Creatinine Clearance 42.94 ml/min; Globulin 3.5 g/dL (2.2-4.2); Glucose 17 mg/dL (74-106); Potassium 2.6 mmol/L (3.5-5.1); Protein, Total 6.2 g/dL (6.4-8.2); Sodium Level 145 mmol/L (136-145); Troponin-I HS 8 pg/mL (3.0-54.0)
--- NOTE | 2021-06-29 14:25 | RAD_ITS ---
STUDY: X-RAY CHEST REASON FOR EXAM: Female, 65 years old. Altered mental status TECHNIQUE: Single AP portable view of the chest. COMPARISON: None. FINDINGS: EKG electrodes are seen. There is hyperinflation of the lungs consistent with chronic obstructive lung disease (COPD). There is no demonstrated pleural abnormality. There is mild cardiac enlargement. A left-sided ICD is seen. Normal mediastinum and rodney. Normal visualized pulmonary arteries. There is atherosclerotic calcification of the aortic arch with tortuosity. There are diffuse degenerative changes of the visualized thoracic spine. There is degenerative osteoarthritis of the bilateral shoulders. There is no demonstrated abnormality of the visualized soft tissue structures of the upper abdomen. RAD/Chest 1 View (Portable) IMPRESSION: Hyperinflation. The lungs are clear. Electronically Signed: Elijah Griffin MD at 14:50 EDT , Service support ,
[2021-06-29 14:35] LABS: Lactic Acid 1.7 mmol/L (0.4-1.9)
--- NOTE | 2021-06-29 14:45 | PCM.HP.STD ---
HPI - General General Date of Admission: 06/29/21 Date of Service: 06/29/21 Chief Complaint: Fall, encephalopathic HPI Narrative The patient is a 65 y/o F residing at [facility] w/ PMHx: HTN, HLD, Diabetes mellitus type II, CHF Unclear type, Cardiomyopathy unclear type, PAF, Chronic anemia, Chronic COPD, Depression and Anxiety/Bipolar disorder, GERD, CKD stage III unclear subtype, Urinary retention/neurogenic bladder w/ chronic indwelling fung catheter who presents to the [facility] ED on 06/29/21 with history of increased fatigue, malaise and eventual decreased responsive state with mechanical fall the evening prior, hitting her head on the left temporal region, progressively worsening with eventual ED evaluation. In the ED following intervention she is more responsive as initially she had only been responsive to painful stimuli. She is able to open her eyes and able to discuss some but still very encephalopathic and unable to give much history. Work-up in the ED included T 97.2, heart rate 96, BP 90/54, respiratory rate 29, initially 90% on room air with improvement to 95% on room air, CBC with WC 8.7, hemoglobin 10.9, platelet 120 without marked shift, CMP with potassium 2.6, chloride 110, glucose initially 17 with repeat 190--> most recent repeat again less than 100, lactic acid 1.7, high-sensitivity troponin 8, CT of the brain with chronic involutional changes with no acute intracranial findings, chest x-ray with chronic COPD type changes with no acute cardiopulmonary findings otherwise, urinalysis with significant evidence of UTI, urine culture and blood culture x2 pending per ED, rapid Covid antigen pending upon evaluation, EKG normal sinus rhythm with left anterior fascicular block with nonspecific changes with no acute evidence of ischemia. Fung catheter changed in the ED with significant purulent appearance. EMS did administer amp of glucose on route. Given persistent hypoglycemia patient initiated on D5 NS following repeat 25 g dextrose amp, administered also 20 mill equivalent potassium and 1 L normal saline bolus. [facility] Medical History (Updated 06/29/21 @ 16:[address] Peyton Roland MD) Bipolar disorder Cardiomyopathy Chronic anemia Chronic CHF Chronic indwelling Fung catheter CKD (chronic kidney disease), stage III COPD exacerbation Depression with anxiety Diabetes mellitus type 2 in nonobese GERD (gastroesophageal reflux disease) HLD (hyperlipidemia) HTN (hypertension) PAF (paroxysmal atrial fibrillation) Home Medications Lactobacillus acidophilus [Acidophilus] 100 mmu cells PO QHS 06/29/21 [History Last Taken 06/28/21] atorvastatin 40 mg PO QHS 06/29/21 [History Last Taken 06/28/21] buspirone 5 mg PO TID 06/29/21 [History Last Taken 06/29/21] ferrous sulfate 325 mg PO QHS 06/29/21 [History Last Taken 06/28/21] gabapentin 300 mg PO QHS 06/29/21 [History Last Taken 06/28/21] insulin regular human See Protocol SUBCUT ACHS 06/29/21 [History Last Taken 06/29/21] lamotrigine [Lamictal] 100 mg PO QHS 06/29/21 [History Last Taken 06/28/21] loratadine 10 mg PO QHS 06/29/21 [History Last Taken 06/28/21] melatonin 6 mg PO QHS 06/29/21 [History Last Taken 06/28/21] ondansetron HCl [Zofran] 4 mg PO Q8H PRN PRN 06/29/21 [History Last Taken 06/22/21] oxybutynin chloride 10 mg PO QHS 06/29/21 [History Last Taken 06/28/21] pantoprazole 40 mg PO BID 06/29/21 [History Last Taken 06/29/21] sertraline 75 mg PO DAILY 06/29/21 [History Last Taken 06/29/21] Allergy/AdvReac Type Severity Reaction Status Date / Time morphine Allergy NEEDS Verified 06/29/21 13:35 FOLLOW-UP shellfish derived Allergy NEEDS Verified 06/29/21 13:35 FOLLOW-UP tositumomab Allergy NEEDS Verified 06/29/21 13:35 FOLLOW-UP vancomycin Allergy NEEDS Verified 06/29/21 13:35 FOLLOW-UP unable to obtain (Encephalopathic upon ED presentation.) Surgical History (Updated 06/29/21 @ 16:[address] Peyton Roland MD) S/P implantation of automatic cardioverter/defibrillator (AICD) Social History (Updated 06/29/21 @ 16:[address] Peyton Roland MD) housing: snf Smoking Status: Never smoker alcohol intake: never substance use type: does not use ROS Review of Systems ROS Unobtainable: due to encephalopathy Vital Signs Vital Signs Vital Signs: 06/29/21 13:27 06/29/21 14:04 Temperature 97.2 F L Temperature Source Temporal Pulse Rate 96 Respiratory Rate 29 H Blood Pressure 98/54 L Blood Pressure Mean 68 Pulse Ox 90 95 Oxygen Delivery Method Room Air Room Air Weight Weight: 99 lb 6.856 oz Body Mass Index (BMI) 17.0 Physical Exam Narrative Physical Examination: General: Patient awakens to stimuli currently, able to converse some but still very encephalopathic, frequently falling back asleep, difficulty even open eyes, not able to answer any orientation questions, attempting to be cooperative, laying in the ED bed, ill-appearing. Skin: Normal color, normal turgor, no icterus, no cyanosis except noted abrasion and small laceration without any bleeding to the left lateral forehead region from recent fall. HEENT: AT/NC, EOM difficult to assess, appears likely legally blind as corneal bilateral left greater than right white out, dry MM, no carotid bruits or JVD noted. Lungs: Diminished breath sounds, greater bases, no evidence of any distress, no rales, ronchi or wheezing. Heart: Regular rate and rhythm; no gallop, rub audible. Abdomen: Soft, thin cachectic habitus, NTTP, ND, normal BS, no HSM, chronic indwelling Fung in place from residential facility with foul appearing urine in the bag. Extremities: No cyanosis, clubbing, or edema. Neurological: Patient awakens to stimuli currently, able to converse some but still very encephalopathic, frequently falling back asleep, difficulty even open eyes, not able to answer any orientation questions, attempting to be cooperative, laying in the ED bed, ill-appearing, cognitive function not baseline intact, cranial nerves appear grossly intact but difficult exam given encephalopathy, moving extremities, strength severely global decreased. Psychiatric: Affect appears flat, encephalopathic, no acute evidence of depressive or anxiety feelings. Results Lab / Micro Data Result Diagrams: 06/29/21 13:40 06/29/21 13:40 Labs: Laboratory Results - last 24 hr 06/29/21 13:40: WBC 8.7, RBC 4.09 L, Hgb 10.9 L, Hct 36.0 L, MCV 88.0, MCH 26.7 L, MCHC 30.3 L, RDW Std Deviation 55.9 H, RDW Coeff of Enrike 17.5 H, Plt Count 120 L, MPV 11.4, Immature Gran % (Auto) 0.500, Neut % (Auto) 76.8 H, Lymph % (Auto) 12.9 L, [place] % (Auto) 9.1, Eos % (Auto) 0.5, Baso % (Auto) 0.2, Absolute Neuts (auto) 6.7, Absolute Lymphs (auto) 1.12, Nucleated RBC % 0 06/29/21 13:40: Sodium 145, Potassium 2.6 L*, Chloride 110 H, Carbon Dioxide 31.0, Anion Gap 4 L, BUN 16, Creatinine 0.93, Estim Creat Clear Calc 42.94, Est GFR (MDRD) Af Amer 78, Est GFR (MDRD) Non-Af 64, BUN/Creatinine Ratio 17.3, Glucose 17 L*, Calcium 8.7, Total Bilirubin 0.40, AST 16, ALT 14, Alkaline Phosphatase 99, Troponin I High Sens 8, Total Protein 6.2 L, Albumin 2.7 L, Globulin 3.5, Albumin/Globulin Ratio 0.8 L 06/29/21 13:56: Lactic Acid 1.7 06/29/21 14:00: POC Glucose 190 H Radiology Impression Brain CT 06/29/21 13:41 IMPRESSION: Chronic involutional changes of the brain. Electronically Signed: Elijah Griffin MD at 14:34 EDT , Service support , Assessment & Plan Assessment/Plan (1) Encephalopathy acute: (2) Acute hypokalemia: (3) Hypoglycemia due to type 2 diabetes mellitus: PLAN: The patient is a 65 y/o F residing at [facility] w/ PMHx: HTN, HLD, Diabetes mellitus type II, CHF Unclear type, Cardiomyopathy unclear type, PAF, Chronic anemia, Chronic COPD, Depression and Anxiety/Bipolar disorder, GERD, CKD stage III unclear subtype, Urinary retention/neurogenic bladder w/ chronic indwelling fung catheter who presents to the [facility] ED on 06/29/21 with history of increased fatigue, malaise and eventual decreased responsive state with mechanical fall the evening prior, hitting her head on the left temporal region, progressively worsening with eventual ED evaluation. 1. Acute encephalopathy, multifactorial secondary to acute complicated urinary tract infection with chronic indwelling Fung catheter and hypoglycemia: Will admit to PCU given ongoing notable hypoglycemia, UA upon ED evaluation remarkable, pending UCx, will continue judicious IVFs given CHF reported history, monitor I/Os, continue IV cefepime given chronic indwelling fung and hx frequent UTI with no current cultures available for review w/ transition as able pending sensitivities and speciation. We will continue patient on D5 NS, hold all oral and insulin regimen therapies, continue every 1 hour Accu-Cheks until at least 2 serial blood sugars remain appropriate with de-escalation and lengthening once improved. Following this would necessitate discontinuation of the dextrose IV fluids and continued close blood sugar monitoring. Once patient mental status improved and more responsive will allow broad regular diet. Fung catheter changed in the ED prior to floor transition. Bld cx x 2 obtained in the ED. PT/OT/case management consultations for discharge planning. 2. Hypokalemia: Admission K+ 2.6, magnesium level requested, supplementation given in the ED however only 20 mill equivalent therefore will administer an additional 20 mill equivalent x1, repeat level this evening and in AM. 3. Chronic anemia, normocytic/iron deficiency: Admission hemoglobin 10.9, baseline appears primarily 10-11, stable, trend, continue iron supplementation. 4. Chronic thrombocytopenia: Unclear specific etiology, admission platelets 120, baseline appears 1 20-1 40 range, stable, trend. 5. Chronic Kidney Disease Stage III, unclear subtype: Admission BUN/Cr 16/0.93, baseline renal function 0.6-0.7, repeat BMP in AM. 6. Anxiety and depression/bipolar disorder: We will continue patient home BuSpar once mental status improving. We will continue Lamictal, sertraline regimen if oral intake safe, requested Lamictal level. 7. PAF: Not on rate or rhythm agent, not anticoagulated, has TIM chest device. 8. Chronic CHF Unclear Type, Cardiomyopathy Unclear Type: Will continue home statin, not on BB/ACEI, will place on ASA but suspect given history not on agents secondary to fall risk. 9. Chronic COPD: Not on inhalers, will have PRN albuterol, encourage HOB, IS. 10. Hypertension: From current list not on regimen, will have PRN hydralazine. 11. Hyperlipidemia: Continue home statin regimen. 12. GERD: We will continue patient on PPI. 13. DVT prophylaxis: SCDs, Lovenox. 14. CODE status: DNR-CCA, no intubation, no aggressive procedures per facility paperwork. Charges/Coding Visit Charges Inpatient E&M: 43053 Init Hosp L3
--- NOTE | 2021-06-29 15:04 | NURSING ---
PCU WHITE ACUTE ENCEPHALOPATHY, HYPOGLYCEMIA
[2021-06-29] MEDS: 0.9% Normal Saline 1,000 ML 150 ML IV (15:24)
[2021-06-29] MEDS: Potassium Chloride 10mEq/100mL 10 MEQ/100 ML IV.SOLN. 100 MEQ IV BOLUS ×4 (15:24→21:17)
[2021-06-29] MEDS: Dextrose 5%/0.9% NaCl 1,000 ML 125 ML IV (15:32)
--- NOTE | 2021-06-29 15:33 | NURSING ---
Catheter us suprapubic - bag changed
[2021-06-29 15:41] LABS: Bedside Glucose 95 mg/dL (70-110)
[2021-06-29 15:42] LABS: Mucous, Urine 0 SEEN /hpf (<or=2+); Red Blood Cells-Urine 0 SEEN /hpf (0-5); Squamous Epithelial Cells - UA 0 SEEN /hpf (5-10)
[2021-06-29 16:00] LABS: Color, Urine Yellow (Yellow); Glucose, Dipstick Normal (Normal); Ketone-Dipstick Negative (Negative); Leukocyte Esterase-Dipstick 500 /ul (Negative); Nitrite-Dipstick Negative (Negative); Occult Blood-Urine 150 /ul (Negative); Protein-Dipstick 100 mg/dl (Negative); Specific Gravity, Urine 1.015 (1.002-1.030); Urine Bilirubin Dipstick Negative (Negative); Urine Clarity Cloudy (Clear); Urine Urobilinogen Normal (Normal)
[2021-06-29 16:30] LABS: Magnesium 1.9 mg/dL (1.6-2.6)
[2021-06-29 16:31] LABS: Bacteria 4+ /hpf (None Seen); White Blood Cells >100 SEEN /hpf (0-5)
[2021-06-29 16:32] LABS: Amorphous Sediment 2+; Calcium Oxalate Crystals Ur 2+ /hpf (<or=2+)
[2021-06-29 16:56] LABS: Bedside Glucose 145 mg/dL (70-110)
[2021-06-29 16:56] LABS: Bedside Glucose 20 mg/dL (70-110)
[2021-06-29 16:58] LABS: Bedside Glucose 18 mg/dL (70-110)
[2021-06-29 17:40] LABS: Bedside Glucose 42 mg/dL (70-110)
[2021-06-29 18:34] LABS: Anion Gap 4 (5-15); BUN 16 mg/dL (7-18); BUN/Creat Ratio 19.6 RATIO (10-20); Calcium,Total 8.1 mg/dL (8.5-10.1); Chloride 113 mmol/L (98-107); Creatinine, Serum 0.82 mg/dL (0.55-1.02); EST Glomerular Filtration Rate 75 mL/min (>60); Est Glom Filt Rate - Afr Amer 90 mL/min (>60); Estimated Creatinine Clearance 45.35 ml/min; Glucose 32 mg/dL (74-106); Potassium 3.3 mmol/L (3.5-5.1); Sodium Level 143 mmol/L (136-145); Troponin-I HS 8 pg/mL (3.0-54.0)
[2021-06-29 19:06] LABS: Bedside Glucose 55 mg/dL (70-110)
[2021-06-29 19:46] LABS: Bedside Glucose 58 mg/dL (70-110)
[2021-06-29] MEDS: Menthol/Lanolin/Calamine/Znox 113 GM Tube 1 APPLIC TOPICAL (20:56)
[2021-06-29] MEDS: MELATONIN 3 MG TABLET 6 MG PO (20:58)
[2021-06-29] MEDS: Ferrous Sulfate 325 MG Tablet PO (20:58)
[2021-06-29] MEDS: Pantoprazole Sodium 40 MG Tablet PO (20:59)
[2021-06-29] MEDS: lamoTRIgine 100 MG Tablet PO (20:59)
[2021-06-29] MEDS: Tolterodine Tartrate 2 MG CAP.SA PO (20:59)
[2021-06-29] MEDS: Atorvastatin Calcium 40 MG Tablet PO (20:59)
--- NOTE | 2021-06-29 21:03 | PCS.PANDOC ---
PANDEMIC DOCUMENTATION INITIATED: Date: 06/04/2021 Time: 190
[2021-06-29 21:43] LABS: Troponin-I HS 9 pg/mL (3.0-54.0)
[2021-06-29 22:10] LABS: Bedside Glucose 89 mg/dL (70-110)
[2021-06-29 23:01] LABS: Bedside Glucose 159 mg/dL (70-110)
[2021-06-30] VITALS (12 sets, daily range): BP systolic 89–157; BP diastolic 46–68; PULSE 76–96; RESP 16–20; TEMP 36.2–37.1; O2SAT 95–100
[2021-06-30] MEDS: Dextrose 5%/0.9% NaCl 1,000 ML 125 ML IV (00:38)
[2021-06-30 00:46] LABS: Bedside Glucose 143 mg/dL (70-110)
--- NOTE | 2021-06-30 01:20 | RAD_ITS ---
EXAM: XR LEFT HIP WITH PELVIS WHEN PERFORMED, 2 OR 3 VIEWS CLINICAL INDICATION: pain TECHNIQUE: Two or three views of the left hip with pelvis when performed. This report was created using [employer] report generation technology. COMPARISON: None. FINDINGS: BONES/JOINTS: Small acute avulsion fracture in the lower aspect of the greater trochanter of the left femur. No destructive or sclerotic lesions. Note that overlapping bowel shadows may however obscure fine detail. Sacroiliac joint is unremarkable. No widening of the pubic symphysis. The articular structures are unremarkable. SOFT TISSUES: Unremarkable. No soft tissue swelling or gas. RAD/HIP, UNI W/ Pelvis 2-3 Views IMPRESSION: Small acute avulsion fracture fragment in the lower aspect of the greater trochanter of the left femur. Electronically Signed: Endy Renee MD at 10:09 EDT , Service support ,
[2021-06-30 01:36] LABS: Bedside Glucose 73 mg/dL (70-110)
[2021-06-30] MEDS: 0.9% Saline Lock 10 ML Syringe IV ×4 (03:45→21:28)
[2021-06-30 05:41] LABS: Bedside Glucose 145 mg/dL (70-110)
[2021-06-30 07:34] LABS: Absolute Lymphocyte Count 1.11 X10^3/uL (0.83-4.51); Absolute Neutrophil Count 6.5 X10^3/uL (2.0-7.7); Basophil# 0.02 X10^3/uL; Basophil% 0.2 % (0-1); Eosinophil# 0.06 X10^3/uL; Eosinophils% 0.7 % (0-5); Hematocrit 27.7 % (37-47); Hemoglobin 8.5 g/dL (12.0-15.0); Lymphocyte # 1.11 X10^3/ul (0.83-4.51); Lymphocyte % 13.2 % (19-41); Mean Corp Hgb Conc 30.7 g/dL (32-36); Mean Corpuscular Hgb 27.1 pg (27.0-32.0); Mean Corpuscular Volume 88.2 fL (81-99); Mean Platelet Vol. 11.8 fl (6.2-12.0); Monocyte# 0.69 X10^3/uL; Monocyte% 8.2 % (0-10); NRBC Flagged by Analyzer 0 % (0-5); Neutrophil # 6.47 X10^3/uL (2.7-7.7); Neutrophil % 77.2 % (47-70); POSITIVE COUNT YES; Platelet Count 93 K/mm3 (150-450); RBC Distribution Width CV 17.5 % (11.6-14.6); RBC Distribution Width SD 56.3 fl (35.1-43.9); Red Blood Count 3.14 M/mm3 (4.2-5.4); White Blood Count 8.4 K/mm3 (4.4-11.0)
[2021-06-30 07:49] LABS: ALB/GLOB Ratio 0.7 RATIO (0.9-2.4); AST(SGOT) 17 U/L (15-37); Alanine Aminotransfer ALT/SGPT 11 U/L (13-56); Albumin, Serum 1.8 g/dL (3.2-5.0); Alkaline Phosphatase 72 U/L (45-117); Anion Gap 4 (5-15); BUN 13 mg/dL (7-18); BUN/Creat Ratio 21.6 RATIO (10-20); Calcium,Total 7.6 mg/dL (8.5-10.1); Chloride 116 mmol/L (98-107); EST Glomerular Filtration Rate 106 mL/min (>60); Est Glom Filt Rate - Afr Amer 128 mL/min (>60); Estimated Creatinine Clearance 64.93 ml/min; Globulin 2.6 g/dL (2.2-4.2); Glucose 167 mg/dL (74-106); Potassium 3.3 mmol/L (3.5-5.1); Protein, Total 4.4 g/dL (6.4-8.2); Sodium Level 146 mmol/L (136-145)
[2021-06-30 07:56] LABS: Differential Indicated SCAN CRITERIA MET
[2021-06-30] MEDS: Potassium Chloride 10mEq/100mL 10 MEQ/100 ML IV.SOLN. 100 MEQ IV BOLUS ×2 (09:02→10:46)
[2021-06-30] MEDS: Pantoprazole Sodium 40 MG Tablet PO ×2 (09:06→21:27)
[2021-06-30] MEDS: Enoxaparin 30 MG/0.3 ML Syringe SC (09:06)
[2021-06-30] MEDS: Sertraline 50 MG Tablet 75 MG PO (09:06)
[2021-06-30] MEDS: Menthol/Lanolin/Calamine/Znox 113 GM Tube 1 APPLIC TOPICAL ×2 (09:08→14:34)
[2021-06-30] MEDS: Acetaminophen 325 MG Tablet 650 MG PO ×2 (09:08→21:27)
[2021-06-30 11:44] LABS: Differential Comment SCANNED
[2021-06-30 12:01] LABS: Bedside Glucose 224 mg/dL (70-110)
--- NOTE | 2021-06-30 12:06 | PN.HOSP_ITS ---
Documented by User: Ashley Castanon NP, PUBLIC AFFAIRS DIRECTOR-C 06/30/21 12:33 Subjective Subjective Patient seen and examined. Reports left hip and leg pain. X-ray demonstrates small fracture of the greater trochanter left femur. Orthopedic surgery consult placed. She denies fever, chills. Denies other symptoms or complaints. Objective Data Objective Data Vital Signs: Vital Signs Temp Pulse Resp BP Pulse Ox 98.8 F 93 18 139/47 H 100 06/30/21 09:10 06/30/21 09:10 06/30/21 09:10 06/30/21 09:10 06/30/21 09:10 Oxygen Flow Rate (L/min) 2 Oxygen Delivery Method Room Air Weight: 97 lb 0.054 oz Body Mass Index (BMI) 15.9 Intake & Output: Intake and Output for Last 24 Hours 06/28/21 06/29/21 06/30/21 23:59 23:59 23:59 Intake Total 3000.0 / 3000.0 1442.92 / 1442.92 Output Total 250 / 250 Balance 3000.0 / 2850.0 1192.92 / 1192.92 Lab / Micro Data Result Diagrams: 06/30/21 06:50 06/30/21 06:50 Labs: Laboratory Results - last 24 hr 06/29/21 13:35: POC Glucose 145 H 06/29/21 13:37: POC Glucose 20 L* 06/29/21 13:38: POC Glucose 18 L* 06/29/21 13:40: WBC 8.7, RBC 4.09 L, Hgb 10.9 L, Hct 36.0 L, MCV 88.0, MCH 26.7 L, MCHC 30.3 L, RDW Std Deviation 55.9 H, RDW Coeff of Enrike 17.5 H, Plt Count 120 L, MPV 11.4, Immature Gran % (Auto) 0.500, Neut % (Auto) 76.8 H, Lymph % (Auto) 12.9 L, [place] % (Auto) 9.1, Eos % (Auto) 0.5, Baso % (Auto) 0.2, Absolute Neuts (auto) 6.7, Absolute Lymphs (auto) 1.12, Nucleated RBC % 0 06/29/21 13:40: Sodium 145, Potassium 2.6 L*, Chloride 110 H, Carbon Dioxide 31.0, Anion Gap 4 L, BUN 16, Creatinine 0.93, Estim Creat Clear Calc 42.94, Est GFR (MDRD) Af Amer 78, Est GFR (MDRD) Non-Af 64, BUN/Creatinine Ratio 17.3, Glucose 17 L*, Calcium 8.7, Total Bilirubin 0.40, AST 16, ALT 14, Alkaline Phosphatase 99, Troponin I High Sens 8, Total Protein 6.2 L, Albumin 2.7 L, Globulin 3.5, Albumin/Globulin Ratio 0.8 L 06/29/21 13:40: Magnesium 1.9 06/29/21 13:56: Lactic Acid 1.7 06/29/21 14:00: POC Glucose 190 H 06/29/21 15:11: POC Glucose 95 06/29/21 15:25: Urine Color Yellow, Urine Clarity Cloudy, Urine pH 8.0, Ur Specific [place] 1.015, Urine Protein 100 H, Urine Glucose (UA) Normal, Urine Ketones Negative, Urine Occult Blood 150 H, Urine Nitrite Negative, Urine Bilirubin Negative, Urine Urobilinogen Normal, Ur Leukocyte Esterase 500 H, Urine RBC 0 SEEN, Urine WBC >100 SEEN, Ur Squamous Epith Cells 0 SEEN, Calcium Oxalate Crystal 2+, Amorphous Sediment 2+, Urine Bacteria 4+, Urine Mucus 0 SEEN 06/29/21 17:28: POC Glucose 42 L* 06/29/21 17:48: Sodium 143, Potassium 3.3 L, Chloride 113 H, Carbon Dioxide 26.0, Anion Gap 4 L, BUN 16, Creatinine 0.82, Estim Creat Clear Calc 45.35, Est GFR (MDRD) Af Amer 90, Est GFR (MDRD) Non-Af 75, BUN/Creatinine Ratio 19.6, Glucose 32 L*, Calcium 8.1 L, Troponin I High Sens 8 06/29/21 18:49: POC Glucose 55 L 06/29/21 19:36: POC Glucose 58 L 06/29/21 20:53: POC Glucose 73 06/29/21 21:10: Troponin I High Sens 9 06/29/21 21:48: POC Glucose 89 06/29/21 22:54: POC Glucose 159 H 06/30/21 00:33: POC Glucose 143 H 06/30/21 05:33: POC Glucose 145 H 06/30/21 06:50: WBC 8.4, RBC 3.14 L, Hgb 8.5 L, Hct 27.7 L, MCV 88.2, MCH 27.1, MCHC 30.7 L, RDW Std Deviation 56.3 H, RDW Coeff of Enrike 17.5 H, Plt Count 93 L, MPV 11.8, Immature Gran % (Auto) 0.500, Neut % (Auto) 77.2 H, Lymph % (Auto) 13.2 L, [place] % (Auto) 8.2, Eos % (Auto) 0.7, Baso % (Auto) 0.2, Absolute Neuts (auto) 6.5, Absolute Lymphs (auto) 1.11, Nucleated RBC % 0, Differential Comment SCANNED 06/30/21 06:50: Sodium 146 H, Potassium 3.3 L, Chloride 116 H, Carbon Dioxide 26.0, Anion Gap 4 L, BUN 13, Creatinine 0.60, Estim Creat Clear Calc 64.93, Est GFR (MDRD) Af Amer 128, Est GFR (MDRD) Non-Af 106, BUN/Creatinine Ratio 21.6 H, Glucose 167 H, Calcium 7.6 L, Total Bilirubin 0.30, AST 17, ALT 11 L, Alkaline Phosphatase 72, Total Protein 4.4 L, Albumin 1.8 L, Globulin 2.6, Albumin/Globulin Ratio 0.7 L 06/30/21 11:32: POC Glucose 224 H Micro: Microbiology 06/29/21 15:25 Nasal Secretion SARS-CoV-2 Antigen (Rapid) - Final Radiography Diagnostic Testing: Radiology Impression Brain CT 06/29/21 13:41 IMPRESSION: Chronic involutional changes of the brain. Electronically Signed: Elijah Griffin MD at 14:34 EDT , Service support , Chest X-Ray 06/29/21 14:25 IMPRESSION: Hyperinflation. The lungs are clear. Electronically Signed: Elijah Griffin MD at 14:50 EDT , Service support , Hip/Pelvis X-Ray 06/30/21 01:20 IMPRESSION: Small acute avulsion fracture fragment in the lower aspect of the greater trochanter of the left femur. Electronically Signed: Endy Renee MD at 10:09 EDT , Service support , Physical Exam Const alert, oriented x3 and no apparent distress Orientation / Consciousness: awake, oriented to person, oriented to place and oriented to time Nutritional Appearance: cachectic HEENT normocephalic and moist oral mucous membranes Eyes PERRL, EOMs intact bilaterally and conjunctivae normal Neck no lymphadenopathy Resp normal respiratory effort and clear to auscultation bilaterally Cardio regular rate, regular rhythm and no murmurs Peripheral Pulses: pulses 2+ throughout GI normal to inspection, nondistended, normoactive bowel sounds, non-tender and non-distended Extremity normal to inspection Extremity Narrative: Left hip pain Skin no rashes or lesions noted Lesions: no lesions Rashes: no rashes Trauma: no lacerations or abrasions Neuro CN's II-XII intact bilaterally, no focal motor deficits, no sensory deficits noted and deep tendon reflexes 2+ bilaterally Psych mental status grossly normal and affect normal Assessment & Plan Assessment/Plan (1) Encephalopathy acute: PLAN: 1. Acute encephalopathy, secondary to acute complicated UTI and hypoglycemia-encephalopathy improved. Continue to treat underlying processes. 2. Acute complicated UTI-history of neurogenic bladder/chronic urinary retention/chronic indwelling Cage catheter. IV cefepime pending urine culture. 3. Hypoglycemia in the setting of type 2 diabetes mellitus-improved. Resume Accu-Cheks with sliding scale insulin. Ha1c 6.9%. 4. Hypokalemia-replaced per protocol, trend BMP. 5. Acute traumatic left greater trochanter fracture-secondary to fall prior to admission. Orthopedic medicine consult placed. PT/OT. As needed pain regimen. Echocardiogram ordered preoperatively, obtain EKG. 6. Chronic normocytic anemia/iron deficiency/chronic thrombocytopenia-Stable, trend CBC. 7. Chronic kidney disease stage II-at baseline. 8. Paroxysmal atrial fibrillation-not on rate control regimen or anticoagulation. 9. Chronic heart failure, unclear type-will obtain echo preoperatively. 10. Anxiety/depression/bipolar disorder-on Lamictal, sertraline. 11. Chronic COPD-no exacerbation. As needed albuterol aerosol. 12. Hypertension-not on regimen, monitor blood pressure. 13. Hyperlipidemia-continue statin. 14. GERD-continue PPI. DVT prophylaxis-Lovenox subcu This patient was seen by Ashley Castanon NP-C under the supervision of Dr. Lopez. Documented by User: Dr. Ant Lopez MD 06/30/21 15:41 Subjective Subjective Patient was admitted yesterday with confusion altered mental status, fall on left side. X-ray of left hip shows fracture of greater trochanter. Objective Data Lab / Micro Data Result Diagrams: 06/30/21 06:50 06/30/21 06:50 Physical Exam Narrative General: Alert, Oriented x3, Cooperative in moderate distress due to pain HEENT: Atraumatic, PERRLA, EOMI, Normocephalic Oral: No Gingival or Mucosal Lesions/ Ulcerations Neck: Supple, No JVD, Negative Carotid Bruits Lungs: Air entry diminished in bilateral lung bases. No crepitation/rhonchi Cardiovascular: Regular rate, Regular Rhythm, Normal S1, Normal S2, No murmurs Abdomen: Bowel Sounds Present, Soft, Non Tender, Non-Distended : Chronic indwelling Cage catheter. Urine is dark. No renal angle tenderness. No suprapubic tenderness. Extremities: Muscle atrophy of extremities. Chronic surgical scar jamie on left arm and forearm. ROM limited on left hip and knee. no edema, Capillary Refill Less than 3 Seconds Skin: No rashes, No breakdown Musculoskeletal: Tenderness on left hip with loss of range of motion mainly due to pain. Neurological: Cranial nerves II-XII grossly intact, DTR 2+/4 and Symmetrical, Neuro grossly intact Psych/Mental Status: In pain Assessment & Plan Assessment/Plan (1) Encephalopathy acute: PLAN: This patient was seen in conjunction with PUBLIC AFFAIRS DIRECTORAshley. I have independently interviewed and examined the patient and reviewed pertinent history, examination findings, laboratory and plan of management. I have reviewed the note and agree with the documented findings with the few additional points. In brief, patient is admitted for acute encephalopathy with confusion and disorientation probably due to complicated UTI. Patient has chronic Cage catheter with history of neurogenic bladder. On IV cefepime. Patient also had episode of hypoglycemia. Had fall with left greater trochanter fracture probably traumatic. Orthopedic consulted. Other multiple comorbidities and poor functional status DNR CCA with no intubation I have discussed my assessment with PUBLIC AFFAIRS DIRECTORAshley and orders have been reviewed. Charges/Coding Visit Charges Inpatient E&M: 25580 Subs Hosp L2
--- NOTE | 2021-06-30 12:15 | ECHOD_ITS ---
Reason For Study: Preop Procedure This was a 2D Doppler, Color Flow transthoracic echocardiogram. The study was technically difficult. The study was technically limited. Exam performed portable in ICU/CCU. Left Ventricle Normal LV size. Left ventricular systolic function is normal. The estimated ejection fraction is 60 %. Stage 1 diastolic dysfunction. No regional wall motion abnormalities noted. Right Ventricle Normal RV size. ICD or pacer leads identified within the right ventricle. Normal systolic function. Atria Normal left atrium. Normal right atrium. Mitral Valve Normal mitral valve. Tricuspid Valve Normal tricuspid valve. Aortic Valve Trisinus/trileaflet aortic valve. Pulmonic Valve Normal pulmonic valve. Great Vessels Normal aortic root. The pulmonary artery is normal size. Normal inferior vena cava. Pericardium/Pleural Small pericardial effusion. There are no echocardiographic indications of cardiac tamponade. Large mass noted in the liver with gelatinous appearance suspicious for a hematoma or cyst. MMode/2D Measurements & Calculations LVIDd: 2.5 cm IVSd: 1.5 cm LVIDs: 1.8 cm LVPWd: 0.97 cm FS: 26.6 % Doppler Measurements & Calculations MV E max enrique: 77.1 cm/sec Lat Peak E' Enrique: 7.8 cm/sec Med Peak E' Enrique: 11.6 cm/sec MV A max enrique: 94.4 cm/sec E/E' lat: 9.9 E/E' med: 6.7 MV E/A: 0.82 Ao V2 max: 121.2 cm/sec LV V1 max: 100.8 cm/sec PA V2 max: 101.2 cm/sec Ao max P.9 mmHg LV V1 max P.1 mmHg Ao V2 mean: 79.5 cm/sec Ao mean P.8 mmHg Ao V2 VTI: 17.7 cm ECHO/Echo Complete Interpretation Summary Normal LV size. Left ventricular systolic function is normal. The estimated ejection fraction is 60 %. Stage 1 diastolic dysfunction. Small pericardial effusion. There are no echocardiographic indications of cardiac tamponade. Large mass noted in the liver with gelatinous appearance suspicious for a hemat zachary or cyst Ordering Physician: Ashley Castanon Referring Physician: Clayton Pollard Performed By: Socorro Saha, CHERYL, RVT
--- NOTE | 2021-06-30 12:32 | EKG12_ITS ---
Test Reason : Blood Pressure : / mmHG Vent. Rate : 099 BPM Atrial Rate : 099 BPM P-R Int : 156 ms QRS Dur : 108 ms QT Int : 378 ms P-R-T Axes : 068 003 056 degrees QTc Int : 485 ms Normal sinus rhythm Anteroseptal infarct , age undetermined Abnormal ECG When compared with ECG of 29-JUN-2021 13:50, MANUAL COMPARISON REQUIRED, DATA IS UNCONFIRMED Confirmed by STEWART LAWLER, JOSE MARTIN ([id number]), editor city HERMAN PINEDA ([id number]) on 07/03/2021 10:51:42 AM Referred By: LORRAINE Confirmed By:JOSE MARTIN WILLIAM MD
--- NOTE | 2021-06-30 13:17 | CT_ITS ---
STUDY: CT BILATERAL HIPS T PELVIS REASON FOR EXAM: Female, 65 years old. Fracture RADIATION DOSAGE (If Supplied By Facility): CTDIvol = ( 12.75 ) mGy, DLP = ( 299.18 ) mGycm TECHNIQUE: Transaxial imaging of the pelvis and bilateral hips was performed with oral contrast, and without intravenous administration of contrast material. Individualized dose optimization techniques were used for this CT. COMPARISON: Same day plain films FINDINGS: There is nondisplaced avulsion fracture of the greater trochanter. Femoral head and neck and proximal diaphysis are intact. There is a 1 cm ill-defined sclerotic lesion in the proximal diaphysis. Suprapubic catheter is in place. CT/Extremity Lower without Contra IMPRESSION: 1. Greater trochanteric avulsion fracture. 2. Intact femoral neck. 3. Sclerotic left femoral lesion, unknown etiology. Metastasis is primary consideration in an older adult. Refer to further evaluation. Electronically Signed: Kevin Gudino MD at 15:13 EDT Tel , Service support ,
[2021-06-30] MEDS: Dextrose 5%/0.9% NaCl 1,000 ML 75 ML IV (14:34)
--- NOTE | 2021-06-30 14:55 | CM.ED ---
SW Note Referral Source: CM Referral Reason: Patient from [facility]. Inquire about return SW called [facility] and left message for admissions requesting a call back. SW paged [facility] admissions automation and controls manager. No response SW called [facility] and spoke to Zoe who said that patient is from the [address] and that she will transfer but no one was there when she was there a little while ago. SW was transferred to [facility] [address] and no answer. SW will continue to attempt to speak with [facility]. Plan: To be determined Bethany DAVIS
--- NOTE | 2021-06-30 16:15 | CM.ED ---
SHAHRIAR Note 16:15 SW called [facility] and the [facility]. Went to voice mail. SHAHRIAR requested call back regarding level of care and bed days hold for patient.SHAHRIAR left call back number for this comic writer and PCU. Plan: Return to [facility] re DAVIS
[2021-06-30] MEDS: Insulin Lispro 100 UNIT/ML INSULN.PEN SC ×2 (16:33→21:28)
[2021-06-30 16:50] LABS: Bedside Glucose 226 mg/dL (70-110)
[2021-06-30] MEDS: Ondansetron 4 MG/2 ML Vial IV (20:09)
[2021-06-30] MEDS: lamoTRIgine 100 MG Tablet PO (21:27)
[2021-06-30] MEDS: Ferrous Sulfate 325 MG Tablet PO (21:27)
[2021-06-30] MEDS: Atorvastatin Calcium 40 MG Tablet PO (21:27)
[2021-06-30] MEDS: Tolterodine Tartrate 2 MG CAP.SA PO (21:27)
[2021-06-30] MEDS: MELATONIN 3 MG TABLET 6 MG PO (21:28)
[2021-07-01] VITALS (11 sets, daily range): BP systolic 71–132; BP diastolic 36–64; PULSE 74–116; RESP 16–20; TEMP 36.7–37.4; O2SAT 92–96
[2021-07-01 00:51] LABS: Bedside Glucose 263 mg/dL (70-110)
[2021-07-01] MEDS: Insulin Lispro 100 UNIT/ML INSULN.PEN SC ×3 (06:39→21:50)
[2021-07-01 06:45] LABS: Bedside Glucose 206 mg/dL (70-110)
--- NOTE | 2021-07-01 09:54 | CON.PCM.OR_ITS ---
HPI Consult Data Date of Consult: 07/01/21 HPI Narrative HPI Narrative: KIRA GRIFFITHS, is a 65 F who presented to [facility] 06/29/2021 after a witnessed fall at her [place] [facility]. Patient has complex comorbidities including hypertension, hyperlipidemia, diabetes mellitus type 2, CHF, cardiomyopathy, PAF, chronic anemia, chronic COPD, depression and anxiety/bipolar disorder, GERD, CKD stage III, urinary retention/neurogenic bladder with chronic indwelling Cage catheter. She presented to the [facility] ED on 06/29/21 with worsening fatigue and decreased responsiveness/mental status changes. [facility] with [facility]action on the left side of her head and left hip. She was noted under the service of the hospitalist. X-rays the following day revealed a left greater trochanteric avulsion fracture. Orthopedics was subsequently consulted. Patient does not ambulate at baseline is full assist to transfer to a wheelchair. She denies any cancer history. Does admit to approximately 10 pound unintentional weight loss in the last couple months. Denies any fevers, chills, chest pain, shortness of breath, night sweats. Patient admits to left hip pain worse with active motion of the hip. Denies pain elsewhere at this time. States she was having some pain in the left hip/femur for the last 2 to 3 months without inciting event at that time. [facility] Medical History (Updated 07/01/21 @ 10:[address] Bernardo Maher, ) Bipolar disorder Cardiomyopathy Chronic anemia Chronic CHF Chronic indwelling Cage catheter CKD (chronic kidney disease), stage III COPD exacerbation Depression with anxiety Diabetes mellitus type 2 in nonobese GERD (gastroesophageal reflux disease) HLD (hyperlipidemia) HTN (hypertension) PAF (paroxysmal atrial fibrillation) Home Medications Lactobacillus acidophilus [Acidophilus] 100 mmu cells PO QHS 06/29/21 [History Last Taken 06/28/21] atorvastatin 40 mg PO QHS 06/29/21 [History Last Taken 06/28/21] buspirone 5 mg PO TID 06/29/21 [History Last Taken 06/29/21] ferrous sulfate 325 mg PO QHS 06/29/21 [History Last Taken 06/28/21] gabapentin 300 mg PO QHS 06/29/21 [History Last Taken 06/28/21] insulin regular human See Protocol SUBCUT ACHS 06/29/21 [History Last Taken 06/29/21] lamotrigine [Lamictal] 100 mg PO QHS 06/29/21 [History Last Taken 06/28/21] loratadine 10 mg PO QHS 06/29/21 [History Last Taken 06/28/21] melatonin 6 mg PO QHS 06/29/21 [History Last Taken 06/28/21] ondansetron HCl [Zofran] 4 mg PO Q8H PRN PRN 06/29/21 [History Last Taken 06/22/21] oxybutynin chloride 10 mg PO QHS 06/29/21 [History Last Taken 06/28/21] pantoprazole 40 mg PO BID 06/29/21 [History Last Taken 06/29/21] sertraline 75 mg PO DAILY 06/29/21 [History Last Taken 06/29/21] Allergy/AdvReac Type Severity Reaction Status Date / Time morphine Allergy NEEDS Verified 06/29/21 13:35 FOLLOW-UP shellfish derived Allergy NEEDS Verified 06/29/21 13:35 FOLLOW-UP tositumomab Allergy NEEDS Verified 06/29/21 13:35 FOLLOW-UP vancomycin Allergy NEEDS Verified 06/29/21 13:35 FOLLOW-UP Surgical History S/P implantation of automatic cardioverter/defibrillator (AICD) Social History housing[facility] Smoking Status: Never smoker alcohol intake: never substance use type: does not use ROS ROS Narrative 10 point review review of systems obtained, negative unless otherwise noted in HPI. Vital Signs Vital Signs Vital Signs: 06/30/21 12:00 06/30/21 14:40 06/30/21 16:00 Temperature 98.3 F Temperature Source Oral Pulse Rate 96 94 93 Respiratory Rate 16 Blood Pressure 122/52 H Blood Pressure Mean 75 Blood Pressure Source Monitor Blood Pressure Position Semi-Fowlers Blood Pressure Location Right Arm Pulse Ox 97 Oxygen Delivery Method Room Air 06/30/21 19:00 06/30/21 21:00 06/30/21 21:04 Temperature 98.6 F Temperature Source Oral Pulse Rate 91 93 Respiratory Rate 16 Blood Pressure 157/68 H Blood Pressure Mean 97 Blood Pressure Source Monitor Blood Pressure Position Semi-Fowlers Blood Pressure Location Right Arm Pulse Ox 97 Oxygen Delivery Method Room Air Room Air 06/30/21 23:00 07/01/21 03:00 07/01/21 03:23 Temperature 99.4 F H Temperature Source Oral Pulse Rate 76 95 89 Respiratory Rate 16 Blood Pressure 122/51 H Blood Pressure Mean 74 Blood Pressure Source Monitor Blood Pressure Position Semi-Fowlers Blood Pressure Location Right Arm Pulse Ox 95 Oxygen Delivery Method Room Air 07/01/21 03:32 07/01/21 08:00 Temperature Temperature Source Pulse Rate 86 Respiratory Rate Blood Pressure Blood Pressure Mean Blood Pressure Source Blood Pressure Position Blood Pressure Location Pulse Ox 92 Oxygen Delivery Method Room Air Room Air Weight Weight: 97 lb 7.109 oz Body Mass Index (BMI) 15.9 Physical Exam Narrative General -A&Ox3, NAD, appears older than stated age, cachectic. Vital signs stable, afebrile. Respiratory -normal work of breathing, no intercostal retractions. CV -pulses irregular, brisk capillary refill ?4 limbs. Abdomen-soft, nontender, nondistended. No guarding, rigidity, rebound tenderness. Musculoskeletal/neurologic -full range of motion nontender throughout bilateral upper extremities, right lower extremity with full sensation and strength in all dermatomes and myotomes. No midline cervical tenderness. Left lower extremity- no obvious deformity. Pain with logroll of the left lower extremity. Does have some tenderness in the anterior thigh in the subtrochanteric region. Nontender along the left knee, tibial shaft and left foot/ankle. Brisk capillary refill. Sensation intact light touch L3-S1 dermatomes. DF, PF, EHL intact. DP, PT 2+. Pelvis is stable, nontender. Skin is intact without lacerations, abrasions. No ecchymosis noted. Lab / Micro Data Result Diagrams: 06/30/21 06:50 06/30/21 06:50 Labs: Laboratory Results - last 24 hr 06/30/21 06:50: Differential Comment SCANNED 06/30/21 11:32: POC Glucose 224 H 06/30/21 16:30: POC Glucose 226 H 06/30/21 21:16: POC Glucose 263 H 07/01/21 06:36: POC Glucose 206 H Micro: Microbiology 06/29/21 13:56 Blood Culture (Wb) - Right Hand Blood Culture - Preliminary No growth in 48 hours. 06/29/21 13:56 Blood Culture (Wb) - Anticubital Right Blood Culture - Preliminary No growth in 48 hours. 06/29/21 15:20 Urine, Catheterized Urine Culture - Preliminary GNR lactose senior technical trainer Radiology Impression Hip/Pelvis X-Ray 06/30/21 01:20 IMPRESSION: Small acute avulsion fracture fragment in the lower aspect of the greater trochanter of the left femur. Electronically Signed: Endy Renee MD at 10:09 EDT , Service support , Lower Extremity CT 06/30/21 13:17 IMPRESSION: 1. Greater trochanteric avulsion fracture. 2. Intact femoral neck. 3. Sclerotic left femoral lesion, unknown etiology. Metastasis is primary consideration in an older adult. Refer to further evaluation. Electronically Signed: Kevin Gudino MD at 15:13 EDT Tel , Service support , Assessment & Plan Assessment/Plan (1) Closed fracture of greater trochanter of femur: PLAN: CT scan and x-rays reviewed of the left hip demonstrate what appears to be an avulsion fracture left greater trochanter. CT does not show any propagation into an occult intertrochanteric left femur fracture. Questionable sclerotic lesion was noted by the radiologist. With her history of antecedent left femur pain and some tenderness in the proximal femur, I recommended some advanced imaging. Full length L femur XRs ordered. MRI versus bone scan is considered. We have no records of ICD compatibility w/ MRI. We will proceed with whole-body bone scan to rule out occult intertrochanteric left femur fracture and further investigation of questionable mass in the proximal femur on the left side. This was discussed with consulting provider. In the meantime, patient be weight-bear as tolerated on the left lower extremity, no active abduction of the hip for 6 weeks. Evaluation outpatient follow-up for osteoporosis is encouraged. I will continue to follow and make final recommendations once results of bone scan are obtained. Thank you for the consultation.
[2021-07-01] MEDS: Dextrose 5%/0.9% NaCl 1,000 ML 75 ML IV (10:05)
[2021-07-01] MEDS: Menthol/Lanolin/Calamine/Znox 113 GM Tube 1 APPLIC TOPICAL ×2 (10:05→21:55)
[2021-07-01] MEDS: Pantoprazole Sodium 40 MG Tablet PO (10:06)
[2021-07-01] MEDS: Sertraline 50 MG Tablet 75 MG PO (10:06)
[2021-07-01] MEDS: Enoxaparin 30 MG/0.3 ML Syringe SC (10:06)
[2021-07-01 10:31] LABS: Absolute Lymphocyte Count 1.04 X10^3/uL (0.83-4.51); Absolute Neutrophil Count 7.5 X10^3/uL (2.0-7.7); Basophil# 0.01 X10^3/uL; Basophil% 0.1 % (0-1); Eosinophil# 0.04 X10^3/uL; Eosinophils% 0.4 % (0-5); Hematocrit 24.2 % (37-47); Hemoglobin 7.3 g/dL (12.0-15.0); Lymphocyte # 1.04 X10^3/ul (0.83-4.51); Lymphocyte % 10.9 % (19-41); Mean Corp Hgb Conc 30.2 g/dL (32-36); Mean Corpuscular Volume 89.6 fL (81-99); Mean Platelet Vol. 11.5 fl (6.2-12.0); Monocyte# 0.92 X10^3/uL; Monocyte% 9.7 % (0-10); NRBC Flagged by Analyzer 0 % (0-5); Neutrophil # 7.47 X10^3/uL (2.7-7.7); Neutrophil % 78.4 % (47-70); POSITIVE COUNT YES; Platelet Count 94 K/mm3 (150-450); RBC Distribution Width SD 58.4 fl (35.1-43.9); White Blood Count 9.5 K/mm3 (4.4-11.0)
[2021-07-01 10:38] LABS: Anion Gap 8 (5-15); BUN 17 mg/dL (7-18); BUN/Creat Ratio 22.3 RATIO (10-20); Calcium,Total 7.7 mg/dL (8.5-10.1); Chloride 112 mmol/L (98-107); Creatinine, Serum 0.76 mg/dL (0.55-1.02); EST Glomerular Filtration Rate 81 mL/min (>60); Est Glom Filt Rate - Afr Amer 98 mL/min (>60); Estimated Creatinine Clearance 51.49 ml/min; Glucose 209 mg/dL (74-106); Potassium 3.8 mmol/L (3.5-5.1); Sodium Level 145 mmol/L (136-145)
--- NOTE | 2021-07-01 10:38 | PN.HOSP_ITS ---
Documented by User: Ashley Castanon NP, [employer] 07/01/21 10:57 Subjective Subjective Patient reports ongoing left hip, leg discomfort however improved from prior. She denies other symptoms or complaints. Denies fever, chills. Objective Data Objective Data Vital Signs: Vital Signs Temp Pulse Resp BP Pulse Ox 99.4 F H 86 16 122/51 H 92 07/01/21 03:23 07/01/21 08:00 07/01/21 03:23 07/01/21 03:23 07/01/21 08:00 Oxygen Flow Rate (L/min) 2 Oxygen Delivery Method Room Air Weight: 97 lb 7.109 oz Body Mass Index (BMI) 15.9 Intake & Output: Intake and Output for Last 24 Hours 06/29/21 06/30/21 07/01/21 23:59 23:59 23:59 Intake Total 3000.0 / 3000.0 2400.00 / 2400.00 1120 / 1120 Output Total 500 / 500 500 / 500 Balance 3000.0 / 2850.0 1900.00 / 1900.00 620 / 620 Lab / Micro Data Result Diagrams: 07/01/21 10:15 07/01/21 10:15 Labs: Laboratory Results - last 24 hr 06/30/21 06:50: Differential Comment SCANNED 06/30/21 11:32: POC Glucose 224 H 06/30/21 16:30: POC Glucose 226 H 06/30/21 21:16: POC Glucose 263 H 07/01/21 06:36: POC Glucose 206 H 07/01/21 10:15: WBC 9.5, RBC 2.70 L, Hgb 7.3 L, Hct 24.2 L, MCV 89.6, MCH 27.0, MCHC 30.2 L, RDW Std Deviation 58.4 H, RDW Coeff of Enrike 18.0 H, Plt Count 94 L, MPV 11.5, Immature Gran % (Auto) 0.500, Neut % (Auto) 78.4 H, Lymph % (Auto) 1 0.9 L, [place]ie % (Auto) 9.7, Eos % (Auto) 0.4, Baso % (Auto) 0.1, Absolute Neuts (auto) 7.5, Absolute Lymphs (auto) 1.04, Nucleated RBC % 0 07/01/21 10:15: Sodium 145, Potassium 3.8, Chloride 112 H, Carbon Dioxide 25.0, Anion Gap 8, BUN 17, Creatinine 0.76, Estim Creat Clear Calc 51.49, Est GFR (MDRD) Af Amer 98, Est GFR (MDRD) Non-Af 81, BUN/Creatinine Ratio 22.3 H, Glucose 209 H, Calcium 7.7 L Micro: Microbiology 06/29/21 15:20 Urine, Catheterized Urine Culture - Preliminary Escherichia coli 06/29/21 13:56 Blood Culture (Wb) - Right Hand Blood Culture - Preliminary No growth in 48 hours. 06/29/21 13:56 Blood Culture (Wb) - Anticubital Right Blood Culture - Preliminary No growth in 48 hours. 06/29/21 15:25 Nasal Secretion SARS-CoV-2 Antigen (Rapid) - Final Radiography Diagnostic Testing: Radiology Impression Lower Extremity CT 06/30/21 13:17 IMPRESSION: 1. Greater trochanteric avulsion fracture. 2. Intact femoral neck. 3. Sclerotic left femoral lesion, unknown etiology. Metastasis is primary consideration in an older adult. Refer to further evaluation. Electronically Signed: Kevin Gudino MD at 15:13 EDT Tel , Service support , Physical Exam Const alert, oriented x3 and no apparent distress Orientation / Consciousness: awake, oriented to person, oriented to place and oriented to time Nutritional Appearance: cachectic HEENT normocephalic and moist oral mucous membranes Eyes PERRL, EOMs intact bilaterally and conjunctivae normal Neck no lymphadenopathy Resp normal respiratory effort and clear to auscultation bilaterally Cardio regular rate, regular rhythm and no murmurs Peripheral Pulses: pulses 2+ throughout GI normal to inspection, nondistended, normoactive bowel sounds, non-tender and non-distended Extremity normal to inspection Skin no rashes or lesions noted Lesions: no lesions Rashes: no rashes Trauma: no lacerations or abrasions Neuro CN's II-XII intact bilaterally, no focal motor deficits, no sensory deficits noted and deep tendon reflexes 2+ bilaterally Psych mental status grossly normal and affect normal Assessment & Plan Assessment/Plan (1) Encephalopathy acute: PLAN: 1. Acute encephalopathy, secondary to acute complicated UTI and hypoglycemia-encephalopathy improved. Continue to treat underlying processes. 2. Acute complicated E.coli/ESBL+ UTI-history of neurogenic bladder/chronic uri nary retention/chronic indwelling Cage catheter. IV meropenem. 3. Hypoglycemia in the setting of type 2 diabetes mellitus-improved. Resume Accu-Cheks with sliding scale insulin. Ha1c 6.9%. 4. Hypokalemia-replaced per protocol, trend BMP. Resolved. 5. Acute traumatic left greater trochanter avulsion fracture-secondary to fall prior to admission. Orthopedic medicine consult placed. PT/OT. As needed pain regimen. CT scan shows questionable sclerotic lesion. Unclear ICD compatibility with MRI, will proceed with bone scan to rule out left femur fracture and sclerotic lesion. No active hip abduction for 6 weeks. 6. Acute on Chronic normocytic anemia/iron deficiency/chronic thrombocytopenia- reduced from baseline. Check iron studies. Plan to transfuse for hemoglobin less than 7. Trend CBC. 7. Chronic kidney disease stage II-at baseline. 8. Paroxysmal atrial fibrillation-not on rate control regimen or anticoagulation. 9. Chronic heart failure, unclear type-echo ordered for preoperative evaluation in the event patient will require orthopedic intervention. 10. Anxiety/depression/bipolar disorder-on Lamictal, sertraline. Lamictal level pending. 11. Chronic COPD-no exacerbation. As needed albuterol aerosol. 12. Hypertension-not on regimen, monitor blood pressure. 13. Hyperlipidemia-continue statin. 14. GERD-continue PPI. DVT prophylaxis-Lovenox subcu Discharge planning: Return to SNF when medically stable. Bone scan pending to evaluate for left femur fracture and sclerotic lesion. This patient was seen by ROCIO Dacosta under the supervision of Dr. Lopez. Documented by User: Dr. Ant Lopez MD 07/01/21 14:24 Subjective Subjective Patient complain of severe left leg and hip pain. Seen by orthopedic surgeon. Mild low-grade fever 99.4 Fahrenheit Objective Data Lab / Micro Data Result Diagrams: 07/01/21 10:15 07/01/21 10:15 Physical Exam Narrative General: Alert, Oriented x3, Cooperative in moderate distress due to pain HEENT: Atraumatic, PERRLA, EOMI, Normocephalic Oral: No Gingival or Mucosal Lesions/ Ulcerations Neck: Supple, No JVD, Negative Carotid Bruits Lungs: Air entry diminished in bilateral lung bases. No crepitation/rhonchi Cardiovascular: Regular rate, Regular Rhythm, Normal S1, Normal S2, No murmurs Abdomen: Bowel Sounds Present, Soft, Non Tender, Non-Distended : Chronic indwelling Cage catheter. Urine is dark. No renal angle ten derness. No suprapubic tenderness. Extremities: Muscle atrophy of extremities. Chronic surgical scar jamie on left arm and forearm. ROM limited on left hip and knee. No edema Skin: No rashes, No breakdown Musculoskeletal: Tenderness on left hip and left proximal thigh with loss of range of motion mainly due to pain. Neurological: Cranial nerves II-XII grossly intact, DTR 2+/4 and Symmetrical, Neuro grossly intact Psych/Mental Status: In pain Assessment & Plan Assessment/Plan (1) Closed fracture of greater trochanter of femur: PLAN: This patient was seen in conjunction with Ashley TONY. I have independently interviewed and examined the patient and reviewed pertinent history, examination findings, laboratory and plan of management. I have reviewed the note and agree with the documented findings with the few additional points. In brief, patient is admitted for acute encephalopathy with confusion and disorientation probably due to complicated UTI. Patient has chronic Cage catheter with history of neurogenic bladder. Urine culture shows ESBL E. coli UTI and antibiotic changed to IV meropenem. Patient had fall an having left hip and left thigh pain. X-ray and CT scan of left lower extremity reviewed. Besides greater trochanteric avulsion fracture it shows a sclerotic left femoral lesion, unknown etiology. Metastasis is primary consideration order entered. Patient also had episode of hypoglycemia. Other multiple comorbidities and poor functional status DNR CCA with no intubation I have discussed my assessment with Ashley TONY and orders have been reviewed. Charges/Coding Visit Charges Inpatient E&M: 29821 Subs Hosp L2
--- NOTE | 2021-07-01 11:16 | RAD_ITS ---
STUDY: X-RAY - LEFT FEMUR REASON FOR STUDY: Female, 65 years old. Pain/fall TECHNIQUE: 4 view(s) of the femur. COMPARISON: None. FINDINGS: There is diffuse demineralization of the femur. There is a displaced fracture along the lateral proximal femur near the greater trochanteric region consistent with greater trochanteric fracture. RAD/Femur Min 2 Views IMPRESSION: Findings consistent with greater trochanteric displaced fracture. Electronically Signed: Landon Triana DO at 12:22 EDT , Service support ,
[2021-07-01 11:27] LABS: Iron 43 ug/dL (50-170); Iron Binding Capacity,Total 131 ug/dL (250-450); PERCENT IRON SATURATION 32.8 % (15.0-55.0)
[2021-07-01 11:56] LABS: Bedside Glucose 197 mg/dL (70-110)
[2021-07-01] MEDS: 0.9% Saline Lock 10 ML Syringe IV ×2 (13:56→21:40)
[2021-07-01 16:56] LABS: Bedside Glucose 195 mg/dL (70-110)
[2021-07-01] MEDS: Acetaminophen 325 MG Tablet 650 MG PO (18:49)
[2021-07-01] MEDS: 0.9% Normal Saline 1,000 ML 999 ML IV (19:30)
[2021-07-01] MEDS: Ondansetron 4 MG/2 ML Vial IV (19:33)
--- NOTE | 2021-07-01 20:57 | NURSING ---
Asked to attempt an IV start on patient. Pt refusing IV. I said no more IV's. Reason for IV explained, for meds and possible blood transfusion. Pt continued to refuse and pull her arm away. charge nurse and primary nurse made aware.
[2021-07-01 22:00] LABS: Bedside Glucose 231 mg/dL (70-110)
[2021-07-02] VITALS (35 sets, daily range): BP systolic 50–132; BP diastolic 38–89; PULSE 94–130; RESP 12–22; TEMP 35.9–37.1; O2SAT 91–100
[2021-07-02] MEDS: 0.9% Saline Lock 10 ML Syringe IV ×3 (00:16→08:46)
[2021-07-02] MEDS: proCHLORPERazine 10 MG/2 ML Vial 5 MG IV ×3 (00:16→15:57)
[2021-07-02] MEDS: 0.9% Normal Saline 1,000 ML 999 ML IV (00:40)
[2021-07-02 00:54] LABS: Hematocrit 15.8 % (37-47); Hemoglobin 4.9 g/dL (12.0-15.0); POSITIVE COUNT YES
--- NOTE | 2021-07-02 01:14 | NURSING ---
Transported pt up to ICU, report given to Minesh, RNs. HENRIK Martinez.
[2021-07-02] MEDS: Ondansetron 4 MG/2 ML Vial IV (04:02)
--- NOTE | 2021-07-02 06:17 | NURSING ---
at 0200 this RN, Agnes Cochran RN, and Dr. Blackmon all tried to start another IV on patient with no success. Dr. Blackmon stated to run blood through existing IV and they will possibly try to get a PICC line in patient later in the day.
--- NOTE | 2021-07-02 07:17 | PCM.PN.BLA ---
Progress Note Notified by nursing staff that she was having coffee-ground emesis as well as bloody stools. These were both sent for testing and did come back positive for blood. Tried to get her to consent to getting an H&H but she was resistant initially. I was able to convince her to allow us to draw blood as well as to restart an IV so she could get IV fluids while waiting for blood. She did end up bleeding down to a hemoglobin of 4.9, and she is currently in the process of being transfused 3 units of blood. She was transferred to the ICU for closer monitoring. I did try to obtain another IV under ultrasound but was unsuccessful. She is a DNR CCA no intubation and was not compliant enough for central line at this time and may benefit from either having a midline or PICC line placed if possible. I did discuss with the oncoming team about consulting gastroenterology for upper and lower scopes. Her Lovenox was discontinued. Critical care time including evaluating the patient as well as lab work was 45 minutes Procedures Hospitalists Procedures: [id number] Critial Care 1st Hr
[2021-07-02 08:45] LABS: Vitamin B12 823 pg/mL (211-911)
[2021-07-02 09:08] LABS: Absolute Lymphocyte Count 1.54 X10^3/uL (0.83-4.51); Basophil# 0.05 X10^3/uL; Basophil% 0.4 % (0-1); Eosinophil# 0.18 X10^3/uL; Eosinophils% 1.5 % (0-5); Hematocrit 35.4 % (37-47); Hemoglobin 13.2 g/dL (12.0-15.0); Lymphocyte # 1.54 X10^3/ul (0.83-4.51); Mean Corp Hgb Conc 37.3 g/dL (32-36); Mean Corpuscular Hgb 33.9 pg (27.0-32.0); Mean Platelet Vol. 11.9 fl (6.2-12.0); Monocyte# 0.92 X10^3/uL; Monocyte% 7.8 % (0-10); NRBC Flagged by Analyzer 0 % (0-5); Neutrophil # 9.02 X10^3/uL (2.7-7.7); Neutrophil % 76.5 % (47-70); Platelet Count 140 K/mm3 (150-450); RBC Distribution Width CV 14.5 % (11.6-14.6); RBC Distribution Width SD 47.2 fl (35.1-43.9); Red Blood Count 3.89 M/mm3 (4.2-5.4); White Blood Count 11.8 K/mm3 (4.4-11.0)
--- NOTE | 2021-07-02 10:00 | EX.PCM.CON.G ---
HPI Consult Data Date of Consult: 07/02/21 HPI Narrative HPI Narrative: KIRA GRIFFITHS, is a 65 F who presents [facility] 06/29/2021 [facility] She has a past medical history of hypertension, hyperlipidemia, diabetes mellitus type 2, CHF, cardiomyopathy, PAF, chronic anemia, chronic COPD, depression and anxiety/bipolar disorder, GERD, CKD stage III, urinary retention/neurogenic bladder with chronic indwelling Cage catheter. She presented to the [facility] ED on 06/29/21 with worsening fatigue and decreased responsiveness/mental status changes. She did have a fall at the longterm and imaging revealed a left greater trochanteric avulsion fracture. I was called to see the patient today because the patient was noted to have multiple episodes of coffee-ground emesis. A stat CBC had shown a hemoglobin of 4.9 which was previously 13.4. She is currently getting transfused packed red blood cells at this time and was transferred up to the ICU. She has had baseline low blood pressure and has been able to be maintained without the use of pressors. She is a DNR. She is not able to give history due to altered mental status. She is currently being seen by orthopedics because of a left greater trochanteric fracture. [facility] Medical History (Updated 07/02/21 @ 10:[address] Munson Friend, DO) Bipolar disorder Cardiomyopathy Chronic anemia Chronic CHF Chronic indwelling Cage catheter CKD (chronic kidney disease), stage III COPD exacerbation Depression with anxiety Diabetes mellitus type 2 in nonobese GERD (gastroesophageal reflux disease) HLD (hyperlipidemia) HTN (hypertension) PAF (paroxysmal atrial fibrillation) Home Medications Lactobacillus acidophilus [Acidophilus] 100 mmu cells PO QHS 06/29/21 [History Last Taken 06/28/21] atorvastatin 40 mg PO QHS 06/29/21 [History Last Taken 06/28/21] buspirone 5 mg PO TID 06/29/21 [History Last Taken 06/29/21] ferrous sulfate 325 mg PO QHS 06/29/21 [History Last Taken 06/28/21] gabapentin 300 mg PO QHS 06/29/21 [History Last Taken 06/28/21] insulin regular human See Protocol SUBCUT ACHS 06/29/21 [History Last Taken 06/29/21] lamotrigine [Lamictal] 100 mg PO QHS 06/29/21 [History Last Taken 06/28/21] loratadine 10 mg PO QHS 06/29/21 [History Last Taken 06/28/21] melatonin 6 mg PO QHS 06/29/21 [History Last Taken 06/28/21] ondansetron HCl [Zofran] 4 mg PO Q8H PRN PRN 06/29/21 [History Last Taken 06/22/21] oxybutynin chloride 10 mg PO QHS 06/29/21 [History Last Taken 06/28/21] pantoprazole 40 mg PO BID 06/29/21 [History Last Taken 06/29/21] sertraline 75 mg PO DAILY 06/29/21 [History Last Taken 06/29/21] Allergy/AdvReac Type Severity Reaction Status Date / Time morphine Allergy NEEDS Verified 06/29/21 13:35 FOLLOW-UP shellfish derived Allergy NEEDS Verified 06/29/21 13:35 FOLLOW-UP tositumomab Allergy NEEDS Verified 06/29/21 13:35 FOLLOW-UP vancomycin Allergy NEEDS Verified 06/29/21 13:35 FOLLOW-UP Surgical History S/P implantation of automatic cardioverter/defibrillator (AICD) Social History housing: longterm Smoking Status: Never smoker alcohol intake: never substance use type: does not use ROS ROS Narrative Review of systems is not able to be obtained due to the patient's altered mental status. I have called the patient's family and I am waiting a return phone call. Physical Exam Const Orientation / Consciousness: oriented to person HEENT Head and Scalp: normal to inspection Face and Sinus: face symmetric Nose: external nose normal Mouth: oral and palatal mucosa normal Eyes conjunctivae normal General Eye: normal appearance of both eyes Neck full ROM General: normal visual inspection Lymph Lymphatic: no lymphadenopathy noted Chest inspection of chest normal and palpation of chest normal Chest: symmetrical chest wall rise Resp normal respiratory effort Effort and Inspection: able to speak in complete sentences Cardio regular rate GI non-distended GI Narrative: She is tender on palpation of the midepigastric area Percussion: normal to percussion Rectal Exam: deferred Neuro Speech: speech normal Gait (Neuro): normal gait Lab / Micro Data Result Diagrams: 07/02/21 Unknown 07/01/21 10:15 Labs: Laboratory Results - last 24 hr 06/29/21 13:35: Vitamin B12 823 07/01/21 10:15: WBC 9.5, RBC 2.70 L, Hgb 7.3 L, Hct 24.2 L, MCV 89.6, MCH 27.0, MCHC 30.2 L, RDW Std Deviation 58.4 H, RDW Coeff of Enrike 18.0 H, Plt Count 94 L, MPV 11.5, Immature Gran % (Auto) 0.500, Neut % (Auto) 78.4 H, Lymph % (Auto) 10.9 L, [place] % (Auto) 9.7, Eos % (Auto) 0.4, Baso % (Auto) 0.1, Absolute Neuts (auto) 7.5, Absolute Lymphs (auto) 1.04, Nucleated RBC % 0 07/01/21 10:15: Sodium 145, Potassium 3.8, Chloride 112 H, Carbon Dioxide 25.0, Anion Gap 8, BUN 17, Creatinine 0.76, Estim Creat Clear Calc 51.49, Est GFR (MDRD) Af Amer 98, Est GFR (MDRD) Non-Af 81, BUN/Creatinine Ratio 22.3 H, Glucose 209 H, Calcium 7.7 L 07/01/21 10:15: Iron 43 L, TIBC 131 L, Iron Saturation 32.8, Folate 2.60 L 07/01/21 11:40: POC Glucose 197 H 07/01/21 16:15: POC Glucose 195 H 07/01/21 21:39: POC Glucose 231 H 07/02/21 00:25: Blood Type B POSITIVE, Antibody Screen NEGATIVE, Crossmatch See Detail 07/02/21 08:22: WBC 11.8 H, RBC 3.89 L, Hgb 13.2, Hct 35.4 L, MCV 91.0, MCH 33.9 H, MCHC 37.3 H D, RDW Std Deviation 47.2 H, RDW Coeff of Enrike 14.5, Plt Count 140 L, MPV 11.9, Immature Gran % (Auto) 0.800, Neut % (Auto) 76.5 H, Lymph % (Auto) 13.0 L, [place] % (Auto) 7.8, Eos % (Auto) 1.5, Baso % (Auto) 0.4, Absolute Neuts (auto) 9.0 H, Absolute Lymphs (auto) 1.54, Nucleated RBC % 0 07/02/21 : Hgb 4.9 L*, Hct 15.8 L Micro: Microbiology 06/29/21 15:20 Urine, Catheterized Urine Culture - Final Escherichia coli 07/01/21 20:25 Stool Stool Occult Blood (SONIA) - Final Occult Blood Positive 07/01/21 20:25 Vomitus Gastric Occult Blood - Final 06/29/21 13:56 Blood Culture (Wb) - Right Hand Blood Culture - Preliminary No growth in 48 hours. 06/29/21 13:56 Blood Culture (Wb) - Anticubital Right Blood Culture - Preliminary No growth in 48 hours. Radiology Impression Femur X-Ray 07/01/21 11:16 IMPRESSION: Findings consistent with greater trochanteric displaced fracture. Electronically Signed: Landon Triana DO at 12:22 EDT , Service support , Assessment & Plan Assessment/Plan (1) GI (gastrointestinal bleed): PLAN: The differential diagnosis for her upper GI bleed would be erosive esophagitis, -Fang tear, peptic ulcer disease, AVMs secondary to her CKD and possibly duodenal ulcer bleed. I am waiting to get confirmation from her family that they will consent for her to have a upper endoscopy to find out where she is bleeding. (2) Anemia: PLAN: Recommend Protonix drip for the next 24 to 48 hours.
--- NOTE | 2021-07-02 10:43 | CASEMGMT ---
Social Work SW attended ICU rounds. Pt dgt Alix on conference call. Pt is currently a morning babysitter resident at [facility] and dgt indicates the plan is to return there at discharge. Pt is currently confused and not able to answer questions appropriately. After rounds, SW spoke with admission coordinator at [facility] and updated on pt condition. She Confirms they are able to take pt back. Clinical update faxed. SW to continue to follow. ROMIE Corado
[2021-07-02] MEDS: fentaNYL 100 MCG/2 ML Ampul 25 MCG IV ×2 (10:55→16:00)
[2021-07-02] MEDS: Insulin Lispro 100 UNIT/ML INSULN.PEN SC ×3 (10:56→22:09)
[2021-07-02] MEDS: Menthol/Lanolin/Calamine/Znox 113 GM Tube 1 APPLIC TOPICAL ×4 (10:57→22:18)
[2021-07-02 11:06] LABS: Bedside Glucose 227 mg/dL (70-110)
--- NOTE | 2021-07-02 11:40 | CON.PCM.CC_ITS ---
Assessment & Plan Assessment/Plan (1) Hemorrhagic shock: (2) GI (gastrointestinal bleed): (3) Closed fracture of greater trochanter of femur: (4) Acute hypokalemia: PLAN: RECOMMENDATIONS: 1. Repeat H&H following blood transfusion 2. Hold on saline boluses if possible 3. Transfuse to a goal of hemoglobin greater than 8 4. Await timing of EGD 5. Possible CT with contrast of the abdomen IMPRESSIONS: 1. Hemorrhagic shock secondary to acute blood loss anemia secondary to probable upper GI bleed with possible liver hematoma Exact circumstances of presentation are unclear at this time. Patient does have a left hip fracture and there is concern for a possible liver hematoma. Patient has had hematemesis with guaiac positive stools indicating a possible upper GI bleed. Will attempt to stabilize from a hemodynamic waqas dpoint using blood. Patient does have advanced age, so congestive heart failure will be a concern. Will preferentially use of blood products if possible. Normal saline can be given if necessary. Patient to have a PICC line placed. If patient requires more than 5 units of blood, a platelet transfusion would likely be appropriate along with FFP. Will obtain coagulation studies with next blood draw. Pressors can be ordered if necessary, but volume repletion is paramount 2. Acute complicated ESBL E. coli UTI Patient is on appropriate antibiotics. Patient will need to be in contact precautions. Given drop in hemoglobin, it is unclear if this is hemorrhagic versus septic shock. Patient is not having fever or other constitutional symptoms. Patient is from a correction. 3. Hypoglycemia in the setting of diabetes mellitus type 2 Blood sugars have been well controlled since she has been here. Continue to monitor closely given patient's decreased p.o. intake. 4. Acute traumatic left hip fracture Patient is likely not stable for definitive intervention at this time. We will need to correct patient's UTI and hemorrhagic shock secondary to upper GI bleed before proceeding with any interventions. 5. Chronic diastolic CHF/paroxysmal A. fib Patient does not appear to be in acute exacerbation of CHF at this time. However, would attempt to avoid crystalloids as patient would be at risk for development of CHF. 6. Anxiety/depression/bipolar/chronic COPD/hypertension/hyperlipidemia/GERD/advanced age Complicates care, management, recovery and prognosis. Continue with baseline medications. Patient will be given pain medications to help with delirium risk. Patient does not appear to be in acute exacerbation of COPD at this time. TIME: 35 minutes critical care time spent addressing patient's shock, E. coli UTI, review of all data and collaboration with care team (10 AM to 12 PM): HPI Consult Data Date of Consult: 07/02/21 HPI Narrative HPI Narrative: KIRA GRIFFITHS is a 65 F, with past medical history listed below, who presents to [facility] on 06/29/2021 secondary to a decrease in mental status. Patient is reportedly at a correction at baseline and had presented to the ER unresponsive. EMS had noted that the patient had a low blood sugar in route. It was unclear on when the patient last ate or received insulin. In the ER, patient was afebrile with a pulse of 96, blood pressure 98/54 and saturating 95% on room air. Immediate blood sugar on arrival was 18. Patient received D50 with significant improvement in mental status, but still rather weak. Patient was noted to be hypokalemic at 2.6 and was placed on D5 normal saline with potassium supplementation. A CT of the head showed no hemorrhage. Patient was noted to have a hemoglobin of 10.9 at that time. Renal function was slightly elevated for age at a creatinine of 0.93. The patient was admitted to the hospital for further evaluation. Patient was admitted to the regular medical floor. Patient was on D5 normal saline with holding of hyperglycemic medications. Patient's mentation improved throughout the hospital stay, but patient started to complain of left hip pain. A subsequent x-ray was noted to have a greater trochanteric femur fracture. Orthopedic surgery was consulted. Patient reportedly at that time had no other complaints. Overnight, patient required transfer to the intensive care unit secondary to hypotension with coffee-ground emesis and bloody stools. Patient did receive fluid boluses and was noted to have a drop in her hemoglobin to 4.9. Patient was ordered 3 units of blood, but access limited rate of infusion. This is still going on at this time. Blood pressures have been soft, but no pressors have needed to be initiated. Patient was verified as a DNR Comfort Care arrest without intubation. GI has been consulted for possible upper and lower scopes. Patient is not able to provide much additional information at this time. Patient is confused and moving around significantly. Patient is to have a PICC line placed in the near future. Patient was given 25 of fentanyl with significant improvement in agitation. Did discuss with cardiology. Patient incidentally found to have a possible hematoma within the liver on cardiac ultrasound. FORMERLY [facility], [facility] Medical History Bipolar disorder Cardiomyopathy Chronic anemia Chronic CHF Chronic indwelling Cage catheter CKD (chronic kidney disease), stage III COPD exacerbation Depression with anxiety Diabetes mellitus type 2 in nonobese GERD (gastroesophageal reflux disease) HLD (hyperlipidemia) HTN (hypertension) PAF (paroxysmal atrial fibrillation) Home Medications Lactobacillus acidophilus [Acidophilus] 100 mmu cells PO QHS 06/29/21 [History Last Taken 06/28/21] atorvastatin 40 mg PO QHS 06/29/21 [History Last Taken 06/28/21] buspirone 5 mg PO TID 06/29/21 [History Last Taken 06/29/21] ferrous sulfate 325 mg PO QHS 06/29/21 [History Last Taken 06/28/21] gabapentin 300 mg PO QHS 06/29/21 [History Last Taken 06/28/21] insulin regular human See Protocol SUBCUT ACHS 06/29/21 [History Last Taken 06/29/21] lamotrigine [Lamictal] 100 mg PO QHS 06/29/21 [History Last Taken 06/28/21] loratadine 10 mg PO QHS 06/29/21 [History Last Taken 06/28/21] melatonin 6 mg PO QHS 06/29/21 [History Last Taken 06/28/21] ondansetron HCl [Zofran] 4 mg PO Q8H PRN PRN 06/29/21 [History Last Taken ] oxybutynin chloride 10 mg PO QHS 06/29/21 [History Last Taken 06/28/21] pantoprazole 40 mg PO BID 06/29/21 [History Last Taken 06/29/21] sertraline 75 mg PO DAILY 06/29/21 [History Last Taken 06/29/21] Allergy/AdvReac Type Severity Reaction Status Date / Time morphine Allergy NEEDS Verified 06/29/21 13:35 FOLLOW-UP shellfish derived Allergy NEEDS Verified 06/29/21 13:35 FOLLOW-UP tositumomab Allergy NEEDS Verified 06/29/21 13:35 FOLLOW-UP vancomycin Allergy NEEDS Verified 06/29/21 13:35 FOLLOW-UP Surgical History S/P implantation of automatic cardioverter/defibrillator (AICD) Social History housing: correction Smoking Status: Never smoker alcohol intake: never substance use type: does not use ROS Review of Systems ROS Unobtainable: due to mental status Physical Exam Const alert General Appearance: anxious Orientation / Consciousness: oriented to person Nutritional Appearance: cachectic HEENT normocephalic and moist oral mucous membranes Eyes PERRL, EOMs intact bilaterally and conjunctivae normal Neck no lymphadenopathy Resp normal respiratory effort and clear to auscultation bilaterally Cardio regular rate, regular rhythm and no murmurs Peripheral Pulses: pulses 2+ throughout GI normal to inspection, nondistended, normoactive bowel sounds, non-tender and non-distended Extremity Extremity Narrative: Pain on palpation of the left hip General Extremity: Negative for clubbing, cyanosis or edema Peripheral Pulses: Yes pulses 2+ throughout Skin no rashes or lesions noted Lesions: no lesions Rashes: no rashes Trauma: no lacerations or abrasions Neuro CN's II-XII intact bilaterally, no focal motor deficits, no sensory deficits noted and deep tendon reflexes 2+ bilaterally Psych mental status grossly normal and affect normal Lab / Micro Data Result Diagrams: 07/02/21 Unknown 07/01/21 10:15 Labs: Laboratory Results - last 24 hr 06/29/21 13:35: Vitamin B12 823 07/01/21 11:40: POC Glucose 197 H 07/01/21 16:15: POC Glucose 195 H 07/01/21 21:39: POC Glucose 231 H 07/02/21 00:25: Blood Type B POSITIVE, Antibody Screen NEGATIVE, Crossmatch See Detail 07/02/21 08:22: WBC 11.8 H, RBC 3.89 L, Hgb 13.2, Hct 35.4 L, MCV 91.0, MCH 33.9 H, MCHC 37.3 H D, RDW Std Deviation 47.2 H, RDW Coeff of Enrike 14.5, Plt Count 140 L, MPV 11.9, Immature Gran % (Auto) 0.800, Neut % (Auto) 76.5 H, Lymph % (Auto) 13.0 L, Lamar % (Auto) 7.8, Eos % (Auto) 1.5, Baso % (Auto) 0.4, Absolute Neuts (auto) 9.0 H, Absolute Lymphs (auto) 1.54, Nucleated RBC % 0 07/02/21 10:54: POC Glucose 227 H 07/02/21 : Hgb 4.9 L*, Hct 15.8 L Micro: Microbiology 06/29/21 15:20 Urine, Catheterized Urine Culture - Final Escherichia coli 07/01/21 20:25 Stool Stool Occult Blood (SONIA) - Final Occult Blood Positive 07/01/21 20:25 Vomitus Gastric Occult Blood - Final 06/29/21 13:56 Blood Culture (Wb) - Right Hand Blood Culture - Preliminary No growth in 48 hours. 06/29/21 13:56 Blood Culture (Wb) - Anticubital Right Blood Culture - Preliminary No growth in 48 hours. Radiology Impression Echocardiogram 06/30/21 12:15 Interpretation Summary Normal LV size. Left ventricular systolic function is normal. The estimated ejection fraction is 60 %. Stage 1 diastolic dysfunction. Small pericardial effusion. There are no echocardiographic indications of cardiac tamponade. Large mass noted in the liver with gelatinous appearance suspicious for a hematoma or cyst Ordering Physician: Ashley Castanon Referring Physician: Clayton Pollard Performed By: Socorro Saha, CHERYL, RVT Femur X-Ray 07/01/21 11:16 IMPRESSION: Findings consistent with greater trochanteric displaced fracture. Electronically Signed: Landon Triana DO at 12:22 EDT , Service support , Charges/Coding Procedures Hospitalists Procedures: [id number] [facility]
[2021-07-02 12:57] LABS: Hematocrit 35.6 % (37-47); Hemoglobin 11.7 g/dL (12.0-15.0)
--- NOTE | 2021-07-02 13:02 | PCM.PN.HOSP ---
Documented by User: Ashley Castanon NP, CONSTRUCTION TECHNOLOGY INSTRUCTOR-C 07/02/21 13:24 Subjective Subjective Patient seen and examined. Drowsy during assessment. Patient pale appearing. Blood pressure remains hypotensive. No active hematemesis during exam. Objective Data Objective Data Vital Signs: Vital Signs Temp Pulse Resp BP Pulse Ox 98.7 F 128 H 22 H 92/56 L 97 07/02/21 09:18 07/02/21 09:18 07/02/21 09:18 07/02/21 09:18 07/02/21 09:18 Oxygen Flow Rate (L/min) 2 Oxygen Delivery Method Nasal Cannula Weight: 97 lb 7.109 oz Body Mass Index (BMI) 15.9 Intake & Output: Intake and Output for Last 24 Hours 06/30/21 07/01/21 07/02/21 23:59 23:59 23:59 Intake Total 2400.00 / 2400.00 2306.45 / 2306.45 1885.8 / 1885.8 Output Total 500 / 500 725 / 725 25 / 25 Balance 1900.00 / 1900.00 1581.45 / 1581.45 1860.8 / 1860.8 Lab / Micro Data Result Diagrams: 07/02/21 Unknown 07/01/21 10:15 Labs: Laboratory Results - last 24 hr 06/29/21 13:35: Vitamin B12 823 07/01/21 16:15: POC Glucose 195 H 07/01/21 21:39: POC Glucose 231 H 07/02/21 00:25: Blood Type B POSITIVE, Antibody Screen NEGATIVE, Crossmatch See Detail 07/02/21 08:22: WBC 11.8 H, RBC 3.89 L, Hgb 13.2, Hct 35.4 L, MCV 91.0, MCH 33.9 H, MCHC 37.3 H D, RDW Std Deviation 47.2 H, RDW Coeff of Enrike 14.5, Plt Count 140 L, MPV 11.9, Immature Gran % (Auto) 0.800, Neut % (Auto) 76.5 H, Lymph % (Auto) 13.0 L, Piute % (Auto) 7.8, Eos % (Auto) 1.5, Baso % (Auto) 0.4, Absolute Neuts (auto) 9.0 H, Absolute Lymphs (auto) 1.54, Nucleated RBC % 0 07/02/21 10:54: POC Glucose 227 H 07/02/21 12:35: Hgb 11.7 L, Hct 35.6 L 07/02/21 : Hgb 4.9 L*, Hct 15.8 L Micro: Microbiology 07/01/21 20:25 Vomitus Gastric Occult Blood - Final Occult Blood Positive 06/29/21 15:20 Urine, Catheterized Urine Culture - Final Escherichia coli 07/01/21 20:25 Stool Stool Occult Blood (SONIA) - Final Occult Blood Positive 06/29/21 13:56 Blood Culture (Wb) - Right Hand Blood Culture - Preliminary No growth in 48 hours. 06/29/21 13:56 Blood Culture (Wb) - Anticubital Right Blood Culture - Preliminary No growth in 48 hours. 06/29/21 15:25 Nasal Secretion SARS-CoV-2 Antigen (Rapid) - Final Radiography Diagnostic Testing: Radiology Impression Echocardiogram 06/30/21 12:15 Interpretation Summary Normal LV size. Left ventricular systolic function is normal. The estimated ejection fraction is 60 %. Stage 1 diastolic dysfunction. Small pericardial effusion. There are no echocardiographic indications of cardiac tamponade. Large mass noted in the liver with gelatinous appearance suspicious for a hematoma or cyst Ordering Physician: Ashley Castanon Referring Physician: Clayton Pollard Performed By: Socorro Saha, CHERYL, RVT Physical Exam Const Constitutional Narrative: Pale appearing, drowsy Nutritional Appearance: cachectic HEENT normocephalic HEENT Narrative: Dried blood noted around mouth Mouth: dry mucous membranes Eyes PERRL, EOMs intact bilaterally and conjunctivae normal Neck no lymphadenopathy Resp normal respiratory effort and clear to auscultation bilaterally Cardio regular rhythm and no murmurs Rate: tachycardic Peripheral Pulses: pulses 2+ throughout GI normal to inspection, nondistended, normoactive bowel sounds, non-tender and non-distended Extremity normal to inspection Skin no rashes or lesions noted Lesions: no lesions Rashes: no rashes Trauma: no lacerations or abrasions Neuro CN's II-XII intact bilaterally, no focal motor deficits, no sensory deficits noted and deep tendon reflexes 2+ bilaterally Psych mental status grossly normal and affect normal Assessment & Plan Assessment/Plan (1) Hemorrhagic shock: (2) Anemia: PLAN: 1. Hemorrhagic shock secondary to acute blood loss anemia as a result of upper GI bleed, underlying chronic normocytic anemia/iron deficiency anemia/chronic thrombocytopenia-GI consulted. Status post 3 units PRBC. Serial H&H. Protonix drip. Plan for EGD and CT of abdomen. 2. Incidental finding of liver hematoma- CT abdomen ordered. 3. Acute encephalopathy, secondary to acute complicated UTI and hypoglycemia-Continue to treat underlying processes. 4. Acute complicated E.coli/ESBL+ UTI-history of neurogenic bladder/chronic urinary retention/chronic indwelling Cage catheter. IV meropenem. 5. Hypoglycemia in the setting of type 2 diabetes mellitus-improved. Continue Accu-Cheks with sliding scale insulin. Ha1c 6.9%. 6. Hypokalemia-replaced per protocol, trend BMP. Resolved. 7. Acute traumatic left greater trochanter avulsion fracture-secondary to fall prior to admission. Orthopedic medicine consult placed. PT/OT. As needed pain regimen. CT scan shows questionable sclerotic lesion. Unclear ICD compatibility with MRI, bone scan ordered to rule out left femur fracture and sclerotic lesion. No active hip abduction for 6 weeks. Await further workup pending medically stable. 8. Chronic kidney disease stage II-at baseline. 9. Paroxysmal atrial fibrillation-not on rate control regimen or anticoagulation. 10. Chronic heart failure, unclear type-echo completed and demonstrated an EF of 60%, stage I diastolic dysfunction, small pericardial effusion. 11. Anxiety/depression/bipolar disorder-on Lamictal, sertraline. Lamictal level pending. 12. Chronic COPD-no exacerbation. As needed albuterol aerosol. 13. Hypertension-not on regimen. Currently hypotensive related to #1. 14. Hyperlipidemia-continue statin. 15. GERD-PPI. DVT prophylaxis-SCDs This patient was seen by Ashley Lg, CONSTRUCTION TECHNOLOGY INSTRUCTOR-C under the supervision of Dr. Lopez. Documented by User: Dr. Ant Lopez MD 07/02/21 13:56 Subjective Subjective Patient was having coffee-ground emesis black-colored in my presence. Patient lethargic, not able to talk, hypotensive. Earlier, patient started having hematemesis and bloody stool in irrigation manager and was sent to ER by my colleague nighttime hospitalist. Hemoglobin dropped to 4.9 and had 1 unit of PRBC in the morning when I saw her. Yesterday her hemoglobin was 7.3 g%. Lovenox 30 mg subcu daily was discontinued. Discussed with developer prover mechanical and GI sql server consultant. I talked to the nursing staff and Compazine was given prior to that Adelina was given Objective Data Lab / Micro Data Result Diagrams: 07/02/21 Unknown 07/01/21 10:15 Physical Exam Narrative General: Obtunded, lethargic. Hypotensive. Vomiting. HEENT: Atraumatic, PERRLA, EOMI, Normocephalic Oral: Emesis. Neck: Supple, No JVD, Negative Carotid Bruits Lungs: Air entry diminished in bilateral lung bases. No crepitation/rhonchi Cardiovascular: Sinus rhythm, Normal S2, No murmurs Abdomen: Bowel Sounds Present, Soft, Non Tender, Non-Distended : Chronic indwelling Cage catheter. Urine is dark. No renal angle tenderness. No suprapubic tenderness. Extremities: Muscle atrophy of extremities. Chronic surgical scar jamie on left arm and forearm. ROM limited on left hip and knee. No edema Skin: No rashes, No breakdown Musculoskeletal: Tenderness on left hip and left proximal thigh with loss of range of motion mainly due to pain. Neurological: Cranial nerves II-XII grossly intact, DTR 2+/4 and Symmetrical, Neuro grossly intact Psych/Mental Status: In distress Assessment & Plan Assessment/Plan (1) Hemorrhagic shock: (2) Anemia: PLAN: This patient was seen in conjunction with Ashley TONY. I have independently interviewed and examined the patient and reviewed pertinent history, examination findings, laboratory and plan of management. I have reviewed the note and agree with the documented findings with the few additional points. In brief, patient is admitted for acute encephalopathy with confusion and disorientation probably due to complicated UTI. Patient has chronic Cage catheter with history of neurogenic bladder. Urine culture shows ESBL E. coli UTI and antibiotic changed to IV meropenem. Patient had fall an having left hip and left thigh pain. X-ray and CT scan of left lower extremity reviewed. Besides greater trochanteric avulsion fracture it shows a sclerotic left femoral lesion, unknown etiology. Metastasis is primary consideration order entered. Hemorrhagic shock secondary to upper GI bleed: Patient had hematemesis and hematochezia probably from rapid upper GI bleed. 2D echo shows EF 60%, LV systolic function normal, stage I diastolic function consistent with chronic diastolic heart failure. Echo also showed large liver mass gelatinous in appearance. Discussed with developer prover mechanical and forest supervisor. CT abdomen with contrast ordered. PRBC and IV fluid resuscitation and might need FFP if more than 5 units of PRBC. When patient is hemodynamically stable, can be taken for EGD. Patient not on any anticoagulant. Patient also had episode of hypoglycemia. Other multiple comorbidities and poor functional status DNR CCA with no intubation Total time of the visit including total time spent in counseling or coordination of care, (more than 50% of the total time, spent in obtaining medical information from nurses and other ancillary care providers,explaining to the patient about labs, imaging, diagnosis and management), discussion with developer prover mechanical and forest supervisor, review of labs and imaging is 30 minutes. I have discussed my assessment with Ashley TONY and orders have been reviewed. Charges/Coding Visit Charges Inpatient E&M: 22207 Subs Hosp L3
[2021-07-02 13:07] LABS: International Normalized Ratio 1.4; Prothrombin Time (Protime)PT. 16.2 SECONDS (11.7-14.9)
--- NOTE | 2021-07-02 14:41 | OP.EGD_ITS ---
Patient Name: Sabine Mariee Procedure Date: 07/02/2021 1:13 PM Date of : 1955 Age: 65 Procedure: Upper GI endoscopy Indications: Epigastric abdominal pain, Acute post hemorrhagic anemia Providers: Arpit Morillo DO Medicines: Propofol per Anesthesia Patient Profile: Refer to note in patient chart for documentation of history and physical. Patient has symptoms of acute vomiting. Laboratory tests results include acute post-hemorrhage anemia. Complications: No immediate complications. Procedure: Pre-Anesthesia Assessment: - Mental Status Examination: alert but confused. Airway Examination: normal oropharyngeal airway and neck mobility. Respiratory Examination: clear to auscultation. CV Examination: tachycardia noted. Abdominal Examination: bowel sounds present, abdomen soft and non-tender, no masses or organomegaly noted. After obtaining informed consent, the endoscope was passed under direct vision. Throughout the procedure, the patient's blood pressure, pulse, and oxygen saturations were monitored continuously. The Endoscope was introduced through the mouth, and advanced to the second part of duodenum. The patient tolerated the procedure well. Moderate Sedation: Moderate (conscious) sedation was personally administered by an anesthesia professional. The following parameters were monitored: oxygen saturation, heart rate, blood pressure, and response to care. Scope In: 1:49:09 PM Scope Out: 2:14:21 PM Total Procedure Duration Time 0 hours 25 minutes 12 seconds Findings: One benign-appearing, intrinsic stenosis was found 37 cm from the incisors. This stenosis was severe and measured 3 mm (inner diameter) x 2 cm (in length). The stenosis was traversed after dilation. A TTS dilator was passed through the scope. Dilation with an 18-19-20 mm balloon dilator was performed to 18 mm. Estimated blood loss: none. A large hiatal hernia was present. 2 large -Fang tear with significant bleeding stigmata. 3 endoclips were placed to stop them are otherwise tear from bleeding. Heater probe was also used to cauterize the bleeding in the esophagus. Red blood was found on the anterior wall of the gastric body. The in the duodenum was normal. Impression: - Benign-appearing esophageal stenosis. Dilated. - Large hiatal hernia. - Red blood in the gastric body (anterior wall). - Normal. - No specimens collected. - Benign-appearing esophageal stenosis. Treated with a heater probe. - Definite source of bleeding. The bleeding stopped with treatment. Rebleeding is likely. Recommendation: - Give Protonix (pantoprazole): initiate therapy with 80 mg IV bolus, then 8 mg/hr IV by continuous infusion daily. - No aspirin, ibuprofen, naproxen, or other non-steroidal anti-inflammatory drugs for 13 days. Procedure Code(s): --- Professional --- 64100, Esophagogastroduodenoscopy, flexible, transoral; with transendoscopic balloon dilation of esophagus (less than 30 mm diameter) CPT copyright 2017 [employer]. All rights reserved. The codes documented in this report are preliminary and upon soft work cigar machine operator review may be revised to meet current compliance requirements. Arpit Morillo DO 07/02/2021 2:40:24 PM This report has been signed electronically. Number of Addenda: 1 Note Initiated On: 07/02/2021 1:13 PM Addendum Number: 1 Addendum Date: 06/20/2022 3:47:14 PM MAC was used instead of moderate sedation for this patient. Arpit Morillo DO 06/20/2022 3:47:21 PM This report has been signed electronically.
--- NOTE | 2021-07-02 14:42 | OP.CCLET_ITS ---
06/20/2022 Clayton Pollard MD [address] [id number] Re : Upper GI endoscopy procedure for Sabine Mariee Dear Dr. Pollard This procedure was performed on Friday, July 02, 2021. My impressions and recommendations are as follows: Impressions : - Benign-appearing esophageal stenosis. Dilated. - Large hiatal hernia. - Red blood in the gastric body (anterior wall). - Normal. - No specimens collected. - Benign-appearing esophageal stenosis. Treated with a heater probe. - Definite source of bleeding. The bleeding stopped with treatment. Rebleeding is likely. Recommendations : - Give Protonix (pantoprazole): initiate therapy with 80 mg IV bolus, then 8 mg/hr IV by continuous infusion daily. - No aspirin, ibuprofen, naproxen, or other non-steroidal anti-inflammatory drugs for 13 days. My findings are described in the full procedure note, which is enclosed. If I can be of further assistance, please feel free to contact me at . Sincerely, Arpit Morillo, 07/02/2021 2:40:24 PM This report has been signed electronically.
[2021-07-02 16:02] LABS: Partial Thromboplast Time 27.1 Seconds (24.1-36.2)
[2021-07-02 17:30] LABS: Bedside Glucose 257 mg/dL (70-110)
[2021-07-02 18:18] LABS: Hematocrit 35.5 % (37-47); Hemoglobin 11.8 g/dL (12.0-15.0)
[2021-07-02 21:20] LABS: Hematocrit 33.3 % (37-47); Hemoglobin 11.4 g/dL (12.0-15.0)
[2021-07-02 22:02] LABS: Lamotrigine (Lamictal) Level 6.6 ug/mL (2.0-20.0)
[2021-07-03] VITALS (23 sets, daily range): BP systolic 107–154; BP diastolic 53–89; PULSE 89–110; RESP 10–20; TEMP 35.9–37.1; O2SAT 91–98
[2021-07-03 00:31] LABS: Bedside Glucose 276 mg/dL (70-110)
[2021-07-03 01:45] LABS: Hematocrit 33.2 % (37-47); Hemoglobin 11.2 g/dL (12.0-15.0); POSITIVE COUNT YES
[2021-07-03 05:36] LABS: Anion Gap 3 (5-15); BUN 59 mg/dL (7-18); BUN/Creat Ratio 54.1 RATIO (10-20); Calcium,Total 7.9 mg/dL (8.5-10.1); Chloride 119 mmol/L (98-107); Creatinine, Serum 1.09 mg/dL (0.55-1.02); EST Glomerular Filtration Rate 53 mL/min (>60); Est Glom Filt Rate - Afr Amer 65 mL/min (>60); Estimated Creatinine Clearance 38.67 ml/min; Glucose 212 mg/dL (74-106); Potassium 3.6 mmol/L (3.5-5.1); Sodium Level 146 mmol/L (136-145)
--- NOTE | 2021-07-03 07:35 | PN.CC_ITS ---
Assessment & Plan Assessment/Plan (1) Hemorrhagic shock: (2) GI (gastrointestinal bleed): (3) Closed fracture of greater trochanter of femur: (4) Acute hypokalemia: PLAN: RECOMMENDATIONS: 1. Okay to transition to daily H&H from my perspective 2. Initiate low dose D5W 3. Consider CT of the abdomen with contrast 4. Okay to leave the intensive care unit from my perspective IMPRESSIONS: 1. Hemorrhagic shock secondary to acute blood loss anemia secondary to probable upper GI bleed with possible liver hematoma Exact circumstances of presentation are unclear at this time. Patient does have a left hip fracture and there is concern for a possible liver hematoma. Patient has had hematemesis with guaiac positive stools indicating a possible upper GI bleed. Will attempt to stabilize from a hemodynamic standpoint using blood. Patient does have advanced age, so congestive heart failure will be a concern. Will preferentially use of blood products if possible. Patient has a PICC line placed. H&H has been stable. Patient has developed hypernatremia and hyperchloremia, likely secondary to resuscitation efforts. Avoid normal saline. D5W added. May need diuretics. 2. Acute complicated ESBL E. coli UTI Patient is on appropriate antibiotics. Patient will need to be in contact precautions. Given drop in hemoglobin, it is unclear if this is hemorrhagic versus septic shock. Patient is not having fever or other constitutional symptoms. Patient is from a snf. 3. Hypoglycemia in the setting of diabetes mellitus type 2 Blood sugars have been well controlled since she has been here. Continue to monitor closely given patient's decreased p.o. intake. 4. Acute traumatic left hip fracture Patient is likely not stable for definitive intervention at this time. We will need to correct patient's UTI and hemorrhagic shock secondary to upper GI bleed before proceeding with any interventions. 5. Chronic diastolic CHF/paroxysmal A. fib Patient does not appear to be in acute exacerbation of CHF at this time. However, would attempt to avoid crystalloids as patient would be at risk for development of CHF. 6. Anxiety/depression/bipolar/chronic COPD/hypertension/hy perlipidemia/GERD/advanced age Complicates care, management, recovery and prognosis. Continue with baseline medications. Patient will be given pain medications to help with delirium risk. Patient does not appear to be in acute exacerbation of COPD at this time. Subjective Subjective Patient did okay overnight. No hemodynamic instability has been noted. Patient did have a large bowel movement last night evening, but no melena, hematochezia or hematemesis has been reported. Patient has been saturating well on room air. Patient actually sleeping on her left hip. Objective Data Objective Data Vital Signs: Vital Signs Temp Pulse Resp BP Pulse Ox 35.9 C L 108 H 14 107/80 98 07/03/21 04:00 07/03/21 07:00 07/03/21 07:00 07/03/21 07:00 07/03/21 07:00 Oxygen Flow Rate (L/min) 1 Oxygen Delivery Method Room Air Weight: 47.6 kg Body Mass Index (BMI) 15.9 Intake & Output: Intake and Output for Last 24 Hours 07/01/21 07/02/21 07/03/21 23:59 23:59 23:59 Intake Total 2306.45 / 2306.45 2329.3 / 2329.3 120 / 120 Output Total 725 / 725 475 / 475 0 / 0 Balance 1581.45 / 1581.45 1854.3 / 1854.3 120 / 120 Lab / Micro Data Result Diagrams: 07/03/21 01:30 07/03/21 05:00 Labs: Laboratory Results - last 24 hr 06/29/21 13:35: Vitamin B12 823 06/29/21 13:40: Lamotrigine 6.6 07/02/21 00:25: Blood Type B POSITIVE, Antibody Screen NEGATIVE, Crossmatch See Detail 07/02/21 08:22: WBC 11.8 H, RBC 3.89 L, Hgb 13.2, Hct 35.4 L, MCV 91.0, MCH 33.9 H, MCHC 37.3 H D, RDW Std Deviation 47.2 H, RDW Coeff of Enrike 14.5, Plt Count 140 L, MPV 11.9, Immature Gran % (Auto) 0.800, Neut % (Auto) 76.5 H, Lymph % (Auto) 13.0 L, [place] % (Auto) 7.8, Eos % (Auto) 1.5, Baso % (Auto) 0.4, Absolute Neuts (auto) 9.0 H, Absolute Lymphs (auto) 1.54, Nucleated RBC % 0 07/02/21 10:54: POC Glucose 227 H 07/02/21 12:35: Hgb 11.7 L, Hct 35.6 L 07/02/21 12:35: PT 16.2 H, INR 1.4, APTT 27.1 07/02/21 17:22: POC Glucose 257 H 07/02/21 17:45: Hgb 11.8 L, Hct 35.5 L 07/02/21 21:12: Hgb 11.4 L, Hct 33.3 L 07/02/21 22:05: POC Glucose 276 H 07/03/21 01:30: Hgb 11.2 L, Hct 33.2 L 07/03/21 05:00: Sodium 146 H, Potassium 3.6, Chloride 119 H, Carbon Dioxide 24.0, Anion Gap 3 L, BUN 59 H, Creatinine 1.09 H, Estim Creat Clear Calc 38.67, Est GFR (MDRD) Af Amer 65, Est GFR (MDRD) Non-Af 53 L, BUN/Creatinine Ratio 54.1 H, Glucose 212 H, Calcium 7.9 L Micro: Microbiology 07/01/21 20:25 Vomitus Gastric Occult Blood - Final Occult Blood Positive 06/29/21 15:20 Urine, Catheterized Urine Culture - Final Escherichia coli 07/01/21 20:25 Stool Stool Occult Blood (SONIA) - Final Occult Blood Positive 06/29/21 13:56 Blood Culture (Wb) - Right Hand Blood Culture - Preliminary No growth in 48 hours. 06/29/21 13:56 Blood Culture (Wb) - Anticubital Right Blood Culture - Preliminary No growth in 48 hours. 06/29/21 15:25 Nasal Secretion SARS-CoV-2 Antigen (Rapid) - Final Radiography Diagnostic Testing: Radiology Impression Echocardiogram 06/30/21 12:15 Interpretation Summary Normal LV size. Left ventricular systolic function is normal. The estimated ejection fraction is 60 %. Stage 1 diastolic dysfunction. Small pericardial effusion. There are no echocardiographic indications of cardiac tamponade. Large mass noted in the liver with gelatinous appearance suspicious for a hematoma or cyst Ordering Physician: Ashley Castanon Referring Physician: Clayton Pollard Performed By: Socorro Saha, CHERYL, RVT Physical Exam Const alert General Appearance: cooperative and comfortable Orientation / Consciousness: oriented to person Nutritional Appearance: cachectic HEENT normocephalic and moist oral mucous membranes Eyes PERRL, EOMs intact bilaterally and conjunctivae normal Neck no lymphadenopathy Resp normal respiratory effort and clear to auscultation bilaterally Cardio regular rate, regular rhythm and no murmurs Peripheral Pulses: pulses 2+ throughout GI normal to inspection, nondistended, normoactive bowel sounds, non-tender and non-distended Extremity General Extremity: Negative for clubbing, cyanosis or edema Peripheral Pulses: Yes pulses 2+ throughout Skin no rashes or lesions noted Lesions: no lesions Rashes: no rashes Trauma: no lacerations or abrasions Neuro CN's II-XII intact bilaterally, no focal motor deficits, no sensory deficits noted and deep tendon reflexes 2+ bilaterally Psych mental status grossly normal and affect normal Charges/Coding Visit Charges Inpatient E&M: 59646 Subs Hosp L3
[2021-07-03] MEDS: Menthol/Lanolin/Calamine/Znox 113 GM Tube 1 APPLIC TOPICAL ×4 (08:24→19:42)
[2021-07-03] MEDS: Insulin Lispro 100 UNIT/ML INSULN.PEN SC ×2 (08:24→21:10)
--- NOTE | 2021-07-03 10:19 | CASEMGMT ---
Addendum entered by Marnie White 07/03/21 15:56: Arthur called back from [facility] and said that pt still had bedhold days. FLORIAN Carrizales Addendum entered by Marnie White 07/03/21 13:36: SHAHRIAR left a message for Arthur w/[facility] to inquire about bedhold days. FLORIAN Carrizales Addendum entered by Marnie White 07/03/21 12:26: SHAHRIAR called Arthur again at [facility], she forwarded this SW to the RN on pt's floor, Stephanie. As per Stephanie, pt is on a regular diabetic diet. She is normally alert and oriented, flat affect, and is very particular. As per Stephanie pt has a bit of confusion at times. Pt does not get up unless she needs to bathe, she tends to stay in bed. Pt is a one assist to the wheelchair, she is able to stand and pivot. As per Stephanie, pt fell on and came to the hospital on Friday. SHAHRIAR will continue to follow. FLORIAN Carrizales Original Note: SW participated in ICU rounds. SHAHRIAR called [facility] after rounds and left a message inquiring about pt's day to day ambulation status, diet, mental status at [facility]. SHAHRIAR will continue to follow. FLORIAN Carrizales
[2021-07-03 13:01] LABS: Bedside Glucose 143 mg/dL (70-110)
--- NOTE | 2021-07-03 13:55 | PN.HOSP_ITS ---
Documented by User: Ashley Castanon NP, GRADUATE CIVIL ENGINEER-C 07/03/21 14:27 Subjective Subjective Patient seen and examined. Denies further hematemesis. Denies current symptoms, denies pain. Discussed moving forward with bone scan and patient states she does not want any more x-rays or test. Discussed further with marianna chan and she is adamant that she does not want any further work-up at this time. Objective Data Objective Data Vital Signs: Vital Signs Temp Pulse Resp BP Pulse Ox 97.7 F L 90 16 137/89 H 97 07/03/21 10:00 07/03/21 11:50 07/03/21 10:00 07/03/21 10:00 07/03/21 10:00 Oxygen Flow Rate (L/min) 1 Oxygen Delivery Method Room Air Weight: 104 lb 15.04 oz Body Mass Index (BMI) 15.9 Intake & Output: Intake and Output for Last 24 Hours 07/01/21 07/02/21 07/03/21 23:59 23:59 23:59 Intake Total 2306.45 / 2306.45 2729.3 / 2729.3 563.96 / 563.96 Output Total 725 / 725 475 / 475 0 / 0 Balance 1581.45 / 1581.45 2254.3 / 2254.3 563.96 / 563.96 Lab / Micro Data Result Diagrams: 07/03/21 01:30 07/03/21 05:00 Labs: Laboratory Results - last 24 hr 06/29/21 13:40: Lamotrigine 6.6 07/02/21 00:25: Crossmatch See Detail 07/02/21 12:35: APTT 27.1 07/02/21 17:22: POC Glucose 257 H 07/02/21 17:45: Hgb 11.8 L, Hct 35.5 L 07/02/21 21:12: Hgb 11.4 L, Hct 33.3 L 07/02/21 22:05: POC Glucose 276 H 07/03/21 01:30: Hgb 11.2 L, Hct 33.2 L 07/03/21 05:00: Sodium 146 H, Potassium 3.6, Chloride 119 H, Carbon Dioxide 24.0, Anion Gap 3 L, BUN 59 H, Creatinine 1.09 H, Estim Creat Clear Calc 38.67, Est GFR (MDRD) Af Amer 65, Est GFR (MDRD) Non-Af 53 L, BUN/Creatinine Ratio 54.1 H, Glucose 212 H, Calcium 7.9 L 07/03/21 12:54: POC Glucose 143 H Micro: Microbiology 07/01/21 20:25 Vomitus Gastric Occult Blood - Final Occult Blood Positive 06/29/21 15:20 Urine, Catheterized Urine Culture - Final Escherichia coli 07/01/21 20:25 Stool Stool Occult Blood (SONIA) - Final Occult Blood Positive 06/29/21 13:56 Blood Culture (Wb) - Right Hand Blood Culture - Preliminary No growth in 48 hours. 06/29/21 13:56 Blood Culture (Wb) - Anticubital Right Blood Culture - Preliminary No growth in 48 hours. 06/29/21 15:25 Nasal Secretion SARS-CoV-2 Antigen (Rapid) - Final Physical Exam Const alert, oriented x3 and no apparent distress Orientation / Consciousness: awake, oriented to person, oriented to place and oriented to time Nutritional Appearance: cachectic HEENT normocephalic and moist oral mucous membranes Eyes PERRL, EOMs intact bilaterally and conjunctivae normal Neck no lymphadenopathy Resp normal respiratory effort and clear to auscultation bilaterally Cardio regular rate, regular rhythm and no murmurs Peripheral Pulses: pulses 2+ throughout GI normal to inspection, nondistended, normoactive bowel sounds, non-tender and non-distended Extremity normal to inspection Skin no rashes or lesions noted Lesions: no lesions Rashes: no rashes Trauma: no lacerations or abrasions Neuro CN's II-XII intact bilaterally, no focal motor deficits, no sensory deficits noted and deep tendon reflexes 2+ bilaterally Psych mental status grossly normal and affect normal Assessment & Plan Assessment/Plan (1) Anemia: PLAN: 1. Hemorrhagic shock secondary to acute blood loss anemia as a result of upper GI bleed, underlying chronic normocytic anemia/iron deficiency anemia/chronic thrombocytopenia-GI consulted. Status post 3 units PRBC. Serial H&H. Protonix IV twice daily. EGD showed 2 large -Fang tears with s ignificant bleeding. Status post 3 endoclips as well as cauterization. Hemodynamically stabilized. 2. Incidental finding of liver hematoma-plan for outpatient follow-up. 3. Acute encephalopathy, secondary to acute complicated UTI and hypoglycemia- Continue to treat underlying processes. 4. Acute complicated catheter associated E.coli/ESBL+ UTI-history of neurogenic bladder/chronic urinary retention/chronic indwelling Cage catheter. IV meropenem. 5. Hypoglycemia in the setting of type 2 diabetes mellitus-improved. Continue Accu-Cheks with sliding scale insulin. Ha1c 6.9%. 6. Hypokalemia-replaced per protocol, trend BMP. Resolved. 7. Acute traumatic left greater trochanter avulsion fracture-secondary to fall prior to admission. Orthopedic medicine consult placed. PT/OT. As needed pain regimen. CT scan shows questionable sclerotic lesion. Unclear ICD compatibility with MRI, bone scan ordered to rule out left femur fracture and sclerotic lesion. Bone scan on hold for the time being. Further recommendations per Ortho. 8. Chronic kidney disease stage II-at baseline. 9. Paroxysmal atrial fibrillation-not on rate control regimen or anticoagulation. 10. Chronic heart failure, unclear type-echo completed and demonstrated an EF of 60%, stage I diastolic dysfunction, small pericardial effusion. 11. Anxiety/depression/bipolar disorder-on Lamictal, sertraline. Lamictal level 6.6. 12. Chronic COPD-no exacerbation. As needed albuterol aerosol. 13. Hypertension-not on regimen. 14. Hyperlipidemia-continue statin. 15. GERD-PPI. DVT prophylaxis-SCDs Discharge plan: Return to SNF when medically stable. This patient was seen by ROCIO Dacosta under the supervision of Dr. Lopez. Documented by User: Dr. Ant Lopez MD 07/03/21 16:36 Subjective Subjective Seen and examined. Patient did not had any overnight hematemesis or melena as per nursing staff. Heart rate and blood pressure is stable. Patient is being transferred to U Objective Data Lab / Micro Data Result Diagrams: 07/03/21 01:30 07/03/21 05:00 Physical Exam Narrative General: Awake. More attentive than yesterday. Mild lethargic. HEENT: Atraumatic, PERRLA, EOMI, Normocephalic Oral: Oral mucosa moist. Neck: Supple, No JVD, Negative Carotid Bruits Lungs: Air entry diminished in bilateral lung bases. No crepitation/rhonchi Cardiovascular: Sinus rhythm, Normal S2, No murmurs Abdomen: Bowel Sounds Present, Soft, Non Tender, Non-Distended : Chronic indwelling Cage catheter. Urine is dark. No renal angle tenderness. No suprapubic tenderness. Extremities: Muscle atrophy of extremities. Chronic surgical scar jamie on left arm and forearm. ROM limited on left hip and knee. No edema Skin: No rashes, No breakdown Musculoskeletal: No tenderness on left hip and left proximal thigh. Restricted range of motion over left hip joint. Neurological: Cranial nerves II-XII grossly intact, DTR 2+/4 and Symmetrical, Neuro grossly intact Psych/Mental Status: Flat affect. Assessment & Plan Assessment/Plan (1) Hemorrhagic shock: PLAN: This patient was seen in conjunction with GRADUATE CIVIL ENGINEER, Ashley. I have independently interviewed and examined the patient and reviewed pertinent history, examination findings, laboratory and plan of management. I have reviewed the note and agree with the documented findings with the few additional points. In brief, patient is admitted for acute encephalopathy with confusion and disorientation probably due to complicated UTI. Patient has chronic Cage catheter with history of neurogenic bladder. Urine culture shows ESBL E. coli UTI and antibiotic changed to IV meropenem. Patient had fall an having left hip and left thigh pain. X-ray and CT scan of left lower extremity reviewed. Besides greater trochanteric avulsion fracture it shows a sclerotic left femoral lesion, unknown etiology. Metastasis is primary consideration order entered. Hemorrhagic shock secondary to upper GI bleed: Patient had hematemesis and hematochezia probably from rapid upper GI bleed. 2D echo shows EF 60%, LV systolic function normal, stage I diastolic function consistent with chronic diastolic heart failure. Echo also showed large liver mass gelatinous in appearance. Discussed with communication spec and fire equipment operator. Patient had 3 units of PRBC transfusion. Patient not on anticoagulant. EGD on 07/02 showed 2 large -Fang tear with large hiatus hernia and patient had 3 endoclips. 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 It was dilated. CT abdomen with contrast was ordered to look for liver mass shown on echo but patient declined any further imaging including bone scan. Patient hemodynamically stabilized and transferred to PCU today. Patient also had episode of hypoglycemia. Other multiple comorbidities and poor functional status DNR CCA with no intubation Total time of the visit including total time spent in counseling or coordination of care, (more than 50% of the total time, spent in obtaining medical information from nurses and other ancillary care providers,explaining to the patient about labs, imaging, diagnosis and management), discussion with communication spec and fire equipment operator, review of labs and imaging is 30 minutes. I have discussed my assessment with GRADUATE CIVIL ENGINEERAshley and orders have been reviewed. Charges/Coding Visit Charges Inpatient E&M: 67020 Subs Hosp L3
--- NOTE | 2021-07-03 14:07 | NURSING ---
report called to pcu
[2021-07-03] MEDS: 0.9% Saline Lock 10 ML Syringe IV (14:35)
--- NOTE | 2021-07-03 17:11 | EX.PCM.PN.GI ---
Subjective Subjective She underwent upper endoscopy yesterday. She was discovered to have 2 large -Fang tears. She has not tried to eat anything more than clear liquids and has been on medical therapy with PPI drip and octreotide. She is still nauseous and she did have some black stools throughout the day today. Objective Data Objective Data Vital Signs: Vital Signs Temp Pulse Resp BP Pulse Ox 98.8 F 95 16 150/70 H 96 07/03/21 16:40 07/03/21 16:40 07/03/21 16:40 07/03/21 16:40 07/03/21 16:40 Oxygen Flow Rate (L/min) 1 Oxygen Delivery Method Room Air Weight: 104 lb 15.04 oz Body Mass Index (BMI) 15.9 Intake & Output: Intake and Output for Last 24 Hours 07/01/21 07/02/21 07/03/21 23:59 23:59 23:59 Intake Total 2306.45 / 2306.45 2729.3 / 2729.3 612.46 / 612.46 Output Total 725 / 725 475 / 475 275 / 275 Balance 1581.45 / 1581.45 2254.3 / 2254.3 337.46 / 337.46 Lab / Micro Data Result Diagrams: 07/03/21 01:30 07/03/21 05:00 Labs: Laboratory Results - last 24 hr 06/29/21 13:40: Lamotrigine 6.6 07/02/21 00:25: Crossmatch See Detail 07/02/21 17:22: POC Glucose 257 H 07/02/21 17:45: Hgb 11.8 L, Hct 35.5 L 07/02/21 21:12: Hgb 11.4 L, Hct 33.3 L 07/02/21 22:05: POC Glucose 276 H 07/03/21 01:30: Hgb 11.2 L, Hct 33.2 L 07/03/21 05:00: Sodium 146 H, Potassium 3.6, Chloride 119 H, Carbon Dioxide 24.0, Anion Gap 3 L, BUN 59 H, Creatinine 1.09 H, Estim Creat Clear Calc 38.67, Est GFR (MDRD) Af Amer 65, Est GFR (MDRD) Non-Af 53 L, BUN/Creatinine Ratio 54.1 H, Glucose 212 H, Calcium 7.9 L 07/03/21 12:54: POC Glucose 143 H Micro: Microbiology 07/01/21 20:25 Vomitus Gastric Occult Blood - Final Occult Blood Positive 06/29/21 15:20 Urine, Catheterized Urine Culture - Final Escherichia coli 07/01/21 20:25 Stool Stool Occult Blood (SONIA) - Final Occult Blood Positive 06/29/21 13:56 Blood Culture (Wb) - Right Hand Blood Culture - Preliminary No growth in 48 hours. 06/29/21 13:56 Blood Culture (Wb) - Anticubital Right Blood Culture - Preliminary No growth in 48 hours. 06/29/21 15:25 Nasal Secretion SARS-CoV-2 Antigen (Rapid) - Final Physical Exam Const alert General Appearance: cooperative Orientation / Consciousness: oriented to person HEENT hearing grossly normal bilaterally Head and Scalp: normal to inspection Face and Sinus: face symmetric Nose: external nose normal Mouth: oral and palatal mucosa normal Eyes conjunctivae normal General Eye: normal appearance of both eyes Neck full ROM General: normal visual inspection Lymph Lymphatic: no lymphadenopathy noted Chest inspection of chest normal and palpation of chest normal Chest: symmetrical chest wall rise Resp normal respiratory effort Effort and Inspection: able to speak in complete sentences Cardio regular rate GI non-distended Percussion: normal to percussion Rectal Exam: deferred Neuro Speech: speech normal Gait (Neuro): normal gait Assessment & Plan Assessment/Plan (1) Hemorrhagic shock: PLAN: Hemorrhagic shock secondary to acute upper GI bleed. She was given 3 units of packed red blood cells. Her current hemoglobin is 11. However her BUN/creatinine ratio is very high in the setting of melanotic stools could be a symptom of slow GI bleed. At this time she is hypertensive and I will prefer her blood pressure to be less than 150 systolic. She is also high normal heart rate. I will give her 10 mg of beta-pat IV as needed every 6 hours (2) GI (gastrointestinal bleed): PLAN: She will need repeat upper endoscopy tomorrow to likely remove 1 or 2 of the clips that were placed. Without the removal of the clips I do not think she can eat solid foods. (3) Anemia: PLAN: Continue to monitor hemoglobin. N.p.o. after midnight.
[2021-07-03 19:51] LABS: Bedside Glucose 147 mg/dL (70-110)
[2021-07-03 21:16] LABS: Bedside Glucose 174 mg/dL (70-110)
[2021-07-04] VITALS (20 sets, daily range): BP systolic 100–141; BP diastolic 48–81; PULSE 77–95; RESP 16–18; TEMP 35.4–37.3; O2SAT 93–97
[2021-07-04] MEDS: Insulin Lispro 100 UNIT/ML INSULN.PEN SC ×3 (06:36→22:45)
[2021-07-04 06:45] LABS: Bedside Glucose 202 mg/dL (70-110)
[2021-07-04] MEDS: Menthol/Lanolin/Calamine/Znox 113 GM Tube 1 APPLIC TOPICAL ×4 (08:41→22:45)
--- NOTE | 2021-07-04 13:30 | OP.EGD_ITS ---
Patient Name: Sabine Mariee Procedure Date: 07/04/2021 12:30 PM Date of : 1955 Age: 65 Procedure: Upper GI endoscopy Indications: Acute post hemorrhagic anemia Providers: Arpit Morillo DO Patient Profile: This is a 65 year old female. Refer to note in patient chart for documentation of history and physical. Patient has symptoms of acute vomiting. She is status post EGD for ulcer treatment recently. Complications: No immediate complications. Procedure: Pre-Anesthesia Assessment: - [place] Protocol: - Pre-procedure Verification: Prior to the procedure, the patient's identity was verified by full name, date of , address and medical record number. The patient's identity was verified on all pertinent medical records, including History and Physical, nursing assessment and pre-anesthesia assessment. Also prior to the procedure, a History and Physical was performed, and patient medications, allergies and sensitivities were reviewed. The patient's tolerance of previous anesthesia was reviewed. The risks and benefits of the procedure and the sedation options and risks were discussed with the patient. All questions were answered and informed consent was obtained. - Time-Out: Prior to the start of the procedure, the patient's identification, proposed procedure, accurate signed consent, correctly labeled images and records, and need for prophylactic antibiotics were verified by the physician in the pre-procedure area. - Prior to the procedure, a History and Physical was performed, and patient medications, allergies and sensitivities were reviewed. The patient's tolerance of previous anesthesia was reviewed. - The risks and benefits of the procedure and the sedation options and risks were discussed with the patient. All questions were answered and informed consent was obtained. - Patient identification and proposed procedure were verified prior to the procedure by the physician. The procedure was verified in the pre-procedure area. - Pre-procedure physical examination revealed no contraindications to sedation. - ASA Grade Assessment: III - A patient with severe systemic disease. - Using IV propofol under the supervision of an anesthesiologist was determined to be medically necessary for this procedure based on review of the patient's medical history, medications, and prior anesthesia history. After obtaining informed consent, the endoscope was passed under direct vision. Throughout the procedure, the patient's blood pressure, pulse, and oxygen saturations were monitored continuously. The gastroscope was introduced through the mouth, and advanced to the second part of duodenum. The upper GI endoscopy was accomplished without difficulty. The patient tolerated the procedure well. Scope In: 12:53:09 PM Scope Out: 1:19:18 PM Total Procedure Duration Time 0 hours 26 minutes 9 seconds Findings: Large amount otherwise to healing very well. There were 3 clips previously placed in the esophagus. 2 of them were able to be removed and the area was treated with APC. She still has a mild distal esophageal stricture at the base. The stricture was dilated with a 15, 16 and 18.5 mm balloon dilator through the scope. Impression: - No specimens collected. - -Fang tear. Treated with argon beam coagulation. - Normal cardia, gastric fundus, greater curvature, gastric body, lesser curvature, incisura and antrum. - Normal second portion of the duodenum. Recommendation: - [facility]. - Advance diet as tolerated for 6 hours. - Clear liquid diet today. - Follow an antireflux regimen for the rest of the patient's life. - Use Protonix (pantoprazole) 40 mg PO BID for the rest of the patient's life. - Continue present medications. Procedure Code(s): --- Professional --- 29988, Esophagogastroduodenoscopy, flexible, transoral; diagnostic, including collection of specimen(s) by brushing or washing, when performed (separate procedure) CPT copyright 2017 [employer]. All rights reserved. The codes documented in this report are preliminary and upon clinic supervisor review may be revised to meet current compliance requirements. Arpit Morillo DO 07/04/2021 1:29:57 PM This report has been signed electronically. Number of Addenda: 1 Note Initiated On: 07/04/2021 12:30 PM Addendum Number: 1 Addendum Date: 06/20/2022 3:52:37 PM MAC was used instead of moderate sedation for this patient. Arpit Morillo DO 06/20/2022 3:52:47 PM This report has been signed electronically.
--- NOTE | 2021-07-04 13:31 | OP.CCLET_ITS ---
06/20/2022 Clayton Pollard MD [address] [id number] Re : Upper GI endoscopy procedure for Sabine Gomezer Dear Dr. Pollard This procedure was performed on Sunday, July 04, 2021. My impressions and recommendations are as follows: Impressions : - No specimens collected. - -Fang tear. Treated with argon beam coagulation. - Normal cardia, gastric fundus, greater curvature, gastric body, lesser curvature, incisura and antrum. - Normal second portion of the duodenum. Recommendations : - [facility]. - Advance diet as tolerated for 6 hours. - Clear liquid diet today. - Follow an antireflux regimen for the rest of the patient's life. - Use Protonix (pantoprazole) 40 mg PO BID for the rest of the patient's life. - Continue present medications. My findings are described in the full procedure note, which is enclosed. If I can be of further assistance, please feel free to contact me at . Sincerely, Arpit Friend, 07/04/2021 1:29:57 PM This report has been signed electronically.
--- NOTE | 2021-07-04 14:13 | PN.HOSP_ITS ---
Documented by User: Ashley Castanon NP, [employer]MENT [employer]ER-C 07/04/21 14:19 Objective Data Objective Data Vital Signs: Vital Signs Temp Pulse Resp BP Pulse Ox 95.8 F L 94 16 100/50 L 93 07/04/21 13:26 07/04/21 13:35 07/04/21 13:35 07/04/21 13:35 07/04/21 13:35 Oxygen Flow Rate (L/min) 1 Oxygen Delivery Method Room Air Weight: 109 lb 5.588 oz Body Mass Index (BMI) 15.9 Intake & Output: Intake and Output for Last 24 Hours 07/02/21 07/03/21 07/04/21 23:59 23:59 23:59 Intake Total 2729.3 / 2729.3 612.46 / 612.46 1696 / 1696 Output Total 475 / 475 275 / 525 1375 / 1375 Balance 2254.3 / 2254.3 337.46 / 87.46 321 / 321 Lab / Micro Data Result Diagrams: 07/03/21 01:30 07/03/21 05:00 Labs: Laboratory Results - last 24 hr 07/03/21 16:37: POC Glucose 147 H 07/03/21 21:10: POC Glucose 174 H 07/04/21 06:35: POC Glucose 202 H Micro: Microbiology 07/01/21 20:25 Vomitus Gastric Occult Blood - Final Occult Blood Positive 06/29/21 15:20 Urine, Catheterized Urine Culture - Final Escherichia coli 07/01/21 20:25 Stool Stool Occult Blood (SONIA) - Final Occult Blood Positive 06/29/21 13:56 Blood Culture (Wb) - Right Hand Blood Culture - Preliminary No growth in 48 hours. 06/29/21 13:56 Blood Culture (Wb) - Anticubital Right Blood Culture - Preliminary No growth in 48 hours. 06/29/21 15:25 Nasal Secretion SARS-CoV-2 Antigen (Rapid) - Final Assessment & Plan Assessment/Plan (1) Anemia: PLAN: 1. Hemorrhagic shock secondary to acute blood loss anemia as a result of upper GI bleed, underlying chronic normocytic anemia/iron deficiency anemia/chronic thrombocytopenia-GI consulted. Status post 3 units PRBC. Hemoglobin now stable. Continue PPI twice daily. EGD showed 2 large - Fang tears with significant bleeding. Status post 3 endoclips as well as cauterization. Hemodynamically stabilized. Further underwent upper GI for reas sessment of -Fang tear, treated with argon beam coagulation. Clear liquid diet. Further recommendations per GI. 2. Incidental finding of liver hematoma-plan for outpatient follow-up. Patient refusing CT of abdomen. 3. Acute encephalopathy, secondary to acute complicated UTI and hypoglycemia- Continue to treat underlying processes. Appears at baseline. 4. Acute complicated catheter associated E.coli/ESBL+ UTI-history of neurogenic bladder/chronic urinary retention/chronic indwelling Cage catheter. IV meropenem during admission, transition to oral regimen at discharge. 5. Hypoglycemia in the setting of type 2 diabetes mellitus-hypoglycemia resolved. Continue Accu-Cheks with sliding scale insulin. Ha1c 6.9%. 6. Hypokalemia-replaced per protocol, trend BMP. Resolved. 7. Acute traumatic left greater trochanter avulsion fracture-secondary to fall prior to admission. Orthopedic medicine consult placed. PT/OT. As needed pain regimen. CT scan shows questionable sclerotic lesion. Unclear ICD compatibility with MRI, bone scan ordered to rule out left femur fracture and sclerotic lesion. Bone scan on hold for the time being. Further recommendations per Ortho. Additionally, patient currently refusing bone scan. 8. Chronic kidney disease stage II-at baseline. 9. Paroxysmal atrial fibrillation-not on rate control regimen or anticoagulation. 10. Chronic heart failure, unclear type-echo completed and demonstrated an EF of 60%, stage I diastolic dysfunction, small pericardial effusion. 11. Anxiety/depression/bipolar disorder-on Lamictal, sertraline. Lamictal level 6.6. 12. Chronic COPD-no exacerbation. As needed albuterol aerosol. 13. Hypertension-not on regimen. 14. Hyperlipidemia-continue statin. 15. GERD-PPI. DVT prophylaxis-SCDs Discharge plan: Return to SNF when medically stable. This patient was seen by ROCIO Dacosta under the supervision of Dr. Lopez. Documented by User: Dr. Ant Lopez MD 07/04/21 14:55 Subjective Subjective Seen and examined. Patient did not any further GI bleed. Patient declined further imaging therefore CT abdomen was canceled. Hemoglobin stable 11.2. Labs ordered for today but since patient declined Objective Data Lab / Micro Data Result Diagrams: 07/03/21 01:30 07/03/21 05:00 Physical Exam Narrative General: Awake. Oriented x3. HEENT: Atraumatic, PERRLA, EOMI, Normocephalic Oral: Oral mucosa moist. Neck: Supple, No JVD, Negative Carotid Bruits Lungs: Air entry diminished in bilateral lung bases. No crepitation/rhonchi Cardiovascular: Sinus rhythm, Normal S2, No murmurs Abdomen: Bowel Sounds Present, Soft, Non Tender, Non-Distended : Chronic indwelling Cage catheter. Urine is dark. No renal angle tenderness. No suprapubic tenderness. Extremities: Muscle atrophy of extremities. Chronic surgical scar jamie on left arm and forearm. ROM limited on left hip and knee. No edema Skin: No rashes, No breakdown Musculoskeletal: No tenderness on left hip and left proximal thigh. Restricted range of motion over left hip joint. Neurological: Cranial nerves II-XII grossly intact, DTR 2+/4 and Symmetrical, Neuro grossly intact Psych/Mental Status: Flat affect. Assessment & Plan Assessment/Plan (1) Hemorrhagic shock: (2) Closed fracture of greater trochanter of femur: PLAN: This patient was seen in conjunction with VEHICLE [employer] EQUIPMENT CLEANER, Ashley. I have independently interviewed and examined the patient and reviewed pertinent history, examination findings, laboratory and plan of management. I have reviewed the note and agree with the documented findings with the few additional points. In brief, patient is admitted for acute encephalopathy with confusion and disorientation probably due to complicated UTI. Patient has chronic Cage catheter with history of neurogenic bladder. Urine culture shows ESBL E. coli UTI and antibiotic changed to IV meropenem. Patient had fall an having left hip and left thigh pain. X-ray and CT scan of left lower extremity reviewed. Besides greater trochanteric avulsion fracture it shows a sclerotic left femoral lesion, unknown etiology. Metastasis is primary consideration. Patient refused further imaging including bone scan and CT abdomen. Hemorrhagic shock secondary to upper GI bleed: Patient had hematemesis and hematochezia probably from rapid upper GI bleed. 2D echo shows EF 60%, LV systolic function normal, stage I diastolic function consistent with chronic diastolic heart failure. Echo also showed large liver mass gelatinous in appearance. Discussed with experimental mechanic outboard motors and public health registrar. Patient had 3 units of PRBC transfusion. Patient not on anticoagulant. EGD on 07/02 showed 2 large -Fang tear with large hiatus hernia and patient had 3 endoclips. 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 It was dilated. CT abdomen with contrast was ordered to look for liver mass shown on echo but patient declined any further imaging including bone scan. Patient hemodynamically stabilized and transferred to PCU on 07/03. Patient had repeat EGD showed -Fang tear treated with argon beam laser coagulation. Normal cardia, gastric fundus, antrum and normal D2. Continue Protonix 40 g p.o. twice daily for rest of life. Clear liquid diet today. Patient also had episode of hypoglycemia. Other multiple comorbidities and poor functional status DNR CCA with no intubation Total time of the visit including total time spent in counseling or coordination of care, (more than 50% of the total time, spent in obtaining medical information from nurses and other ancillary care providers,explaining to the patient about labs, imaging, diagnosis and management), discussion with experimental mechanic outboard motors and public health registrar, review of labs and imaging is 30 minutes. Charges/Coding Visit Charges Inpatient E&M: 62010 Subs Hosp L2
--- NOTE | 2021-07-04 15:03 | NURSING ---
Pt off floor unable to follow [facility].
--- NOTE | 2021-07-04 15:33 | CASEMGMT ---
[facility] palliative screening tool and pt meets criteria. Abdirahman TONY aware and agreeable to referral. Order placed and referral faxed, call to palliative to notify. Demetrius CHESTER CM
[2021-07-04 16:31] LABS: Bedside Glucose 244 mg/dL (70-110)
--- NOTE | 2021-07-04 16:42 | CHAPLAIN ---
Type of Pastoral Visit ___ Initial Visit ___ Follow-up Visit ___ On-call Visit ___ General Patient Visit ___ Spiritual Assessment ___ Family Conference ___ Bereavement ___ Rapid Response ___ Code Blue ___ Other (describe below) Pastoral Care Referral From ___ Patient ___ Family ___ Nurse ___ Physician ___ Aerospace Quality Engineer ___ Ultrasound Tech ___ Other (describe below) Sacrament/Intervention ___ Active listening ___ Anointing ___ Anabaptist ___ Bereavement ___ Communion ___ Bhavani exploration ___ ___ Life review ___ Prayer ___ Reconciliation ___ Sacrament of Sick ___ Supportive presence ___ Wedding ___ Other (describe below) Pastoral Comments patient was out of the room; calling card left
[2021-07-04] MEDS: lamoTRIgine 100 MG Tablet PO (22:43)
[2021-07-04] MEDS: Ferrous Sulfate 325 MG Tablet PO (22:44)
[2021-07-04] MEDS: Atorvastatin Calcium 40 MG Tablet PO (22:44)
[2021-07-04] MEDS: MELATONIN 3 MG TABLET 6 MG PO (22:44)
[2021-07-04] MEDS: Tolterodine Tartrate 2 MG CAP.SA PO (22:44)
[2021-07-04 22:56] LABS: Bedside Glucose 274 mg/dL (70-110)
[2021-07-05] VITALS (8 sets, daily range): BP systolic 102–140; BP diastolic 54–64; PULSE 74–108; RESP 16–18; TEMP 36.2–37.1; O2SAT 95–98
[2021-07-05] MEDS: Acetaminophen 325 MG Tablet 650 MG PO (01:35)
[2021-07-05] MEDS: Insulin Lispro 100 UNIT/ML INSULN.PEN SC ×3 (06:38→22:15)
[2021-07-05 06:46] LABS: Bedside Glucose 150 mg/dL (70-110)
[2021-07-05 07:25] LABS: Absolute Lymphocyte Count 1.07 X10^3/uL (0.83-4.51); Absolute Neutrophil Count 5.6 X10^3/uL (2.0-7.7); Basophil# 0.02 X10^3/uL; Basophil% 0.3 % (0-1); Eosinophil# 0.42 X10^3/uL; Eosinophils% 5.3 % (0-5); Hematocrit 28.5 % (37-47); Hemoglobin 9.8 g/dL (12.0-15.0); Lymphocyte # 1.07 X10^3/ul (0.83-4.51); Lymphocyte % 13.4 % (19-41); Mean Corp Hgb Conc 34.4 g/dL (32-36); Mean Corpuscular Hgb 29.8 pg (27.0-32.0); Mean Corpuscular Volume 86.6 fL (81-99); Mean Platelet Vol. 12.5 fl (6.2-12.0); Monocyte# 0.72 X10^3/uL; NRBC Flagged by Analyzer 0 % (0-5); Neutrophil # 5.61 X10^3/uL (2.7-7.7); Neutrophil % 70.5 % (47-70); POSITIVE COUNT YES; RBC Distribution Width CV 15.1 % (11.6-14.6); RBC Distribution Width SD 47.8 fl (35.1-43.9); Red Blood Count 3.29 M/mm3 (4.2-5.4)
[2021-07-05 07:31] LABS: Differential Indicated SCAN CRITERIA MET; Platelet Count 47 K/mm3 (150-450)
[2021-07-05 08:09] LABS: Anion Gap 4 (5-15); BUN 15 mg/dL (7-18); BUN/Creat Ratio 23.4 RATIO (10-20); Calcium,Total 7.3 mg/dL (8.5-10.1); Chloride 106 mmol/L (98-107); Creatinine, Serum 0.64 mg/dL (0.55-1.02); EST Glomerular Filtration Rate 99 mL/min (>60); Est Glom Filt Rate - Afr Amer 120 mL/min (>60); Estimated Creatinine Clearance 64.33 ml/min; Glucose 125 mg/dL (74-106); Potassium 2.3 mmol/L (3.5-5.1); Sodium Level 141 mmol/L (136-145)
[2021-07-05 08:15] LABS: Platelet Estimate MKD DEC (ADEQ)
[2021-07-05 09:00] LABS: Magnesium 1.3 mg/dL (1.6-2.6); Phosphorus 0.9 mg/dL (2.5-4.9)
--- NOTE | 2021-07-05 09:54 | PCM.CONS.P ---
Assessment & Plan Assessment/Plan (1) Debility: (2) Closed fracture of greater trochanter of femur: QUALIFIERS: Encounter type: subsequent encounter (3) GI (gastrointestinal bleed): (4) Acute hypokalemia: (5) Encephalopathy acute: (6) Hypoglycemia due to type 2 diabetes mellitus: (7) Anemia: QUALIFIERS: Anemia type: unspecified type Qualified Code(s): D64.9 - Anemia, unspecified (8) Hemorrhagic shock: PLAN: 65-year-old female with multiple comorbidities, closed fracture of greater trochanter femur, hemorrhagic shock secondary to -Fang tear, acute encephalopathy and hypokalemia, seen today for palliative consultation for supportive care when she is discharged back to [facility]. Patient is a DNR CCA. She is confused and cannot currently make her own decisions. 1. Debility: Multifactorial, essentially nonambulatory at the residential but can stand and pivot. She now has a femur fracture. She has been refusing further testing as recommended by orthopedics. We will follow her at the residential if her family is agreeable to services. 2. Hip fracture: Pain has been mild to moderate, no indication for escalation of pain medications. Defer management to orthopedics. 3. GI bleed/-Fang tear: Being followed by GI, had an upper endoscopy. She seems to be tolerating full liquids. Defer management 4. Acute hypokalemia/encephalopathy/hypoglycemia/T2DM/history of bipolar/hemorrhagic shock/anemia/CKD stage III/PAF/CHF/anxiety/depression/COPD/HTN/HLD/GERD/chronic indwelling Cage secondary to neurogenic bladder: Complicates overall care, management, recovery, and prognosis. Depending upon patient's hospital course and recovery in the next couple of weeks, patient may be eligible for hospice. She has deferred any further investigation of her sclerotic lesion to the femur, no bone scan at this time. If she does not want any further treatment and family is agreeable, I would recommend hospice. Thank you for the opportunity to participate in this patient's care, please do not hesitate to contact [facility] with any further questions or concerns. Palliative direct line is [phone]. We will follow up after discharge and will discuss palliative services further at that time. I will have our liaison reach out to family. Daughter is Alix Mariee [phone]. Also listed as person to notify is Cristela Simmons at [phone]. Greater than 50% of F2F visit dedicated to education and counseling of palliative care services, medications, comorbid conditions and potential assistance with management, and plan of care moving forward. Start time: 949 End time: 1035 HPI Consult Data Date of Consult: 07/05/21 HPI Narrative HPI Narrative: KIRA MARIEE, is a 65 F who presented to [facility] 06/29/2021 with lethargy s/p mechanical fall at [facility], hitting head on left temporal region. She was also hypoglycemic at 17. X-ray demonstrated small fracture of greater trochanter left femur, orthopedics was consulted and patient was admitted for further evaluation and management. Potassium was low at 2.6, no white count, BP 90/54 and tachypneic. She was found to have acute UTI, on antibiotics. Also had echocardiogram, showed estimated EF of 60%, stage I diastolic dysfunction, small pericardial effusion, normal LV systolic function. There was a large mass noted in the liver with gelatinous appearance suspicious for hematoma or cyst. Orthopedics saw the patient and who recommended advanced imaging with full-length left femur x-rays and whole-body bone scan to rule out occult intertrochanteric left femur fracture and further investigation of questionable mass in the proximal femur on the left side. The patient ended up being transferred to the ICU secondary to coffee-ground emesis. She had been refusing lab draws and treatment. Her hemoglobin did decrease to 4.9 and she received PRBCs. The patient underwent an upper GI endoscopy secondary to epigastric abdominal pain and acute posthemorrhagic anemia. She underwent dilation due to severe stenosis. She also had a large hiatal hernia. There were 2 large -Fang tears with significant bleeding, endoclipped. GI recommended Protonix IV, no NSAIDs for 2 weeks. Patient is to be on p.o. Protonix 40 mg twice daily for life. Patient is nonambulatory at the residential, she is a full assist with transfers to her wheelchair. Staff noted a 10 pound unintentional weight loss in the last few months. Staff there noted patient is normally alert and oriented, flat affect, very particular with care. She does have confusion at times. She is 1 assist to the wheelchair, able to stand and pivot. Patient is lying in bed on her right side, trying to eat her Jell-O. Refused to be repositioned. Denies any pain unless with movement, says it is mild. She is alert to self only. Asking for fish sandwich, she is still on full liquids. Patient cried when this was explained. She wants to go home. Denies any nausea or vomiting. Denies chest pain or shortness of breath. Says she only has pain in the left hip, no radiation. Worse with movement, better with rest. No dizziness, no syncope. Denies any urinary symptoms, she is wearing an attends. [facility] Medical History Bipolar disorder Cardiomyopathy Chronic anemia Chronic CHF Chronic indwelling Cage catheter CKD (chronic kidney disease), stage III COPD exacerbation Depression with anxiety Diabetes mellitus type 2 in nonobese GERD (gastroesophageal reflux disease) HLD (hyperlipidemia) HTN (hypertension) PAF (paroxysmal atrial fibrillation) Home Medications Lactobacillus acidophilus [Acidophilus] 100 mmu cells PO QHS 06/29/21 [History Last Taken 06/28/21] atorvastatin 40 mg PO QHS 06/29/21 [History Last Taken 06/28/21] buspirone 5 mg PO TID 06/29/21 [History Last Taken 06/29/21] ferrous sulfate 325 mg PO QHS 06/29/21 [History Last Taken 06/28/21] gabapentin 300 mg PO QHS 06/29/21 [History Last Taken 06/28/21] insulin regular human See Protocol SUBCUT ACHS 06/29/21 [History Last Taken 06/29/21] lamotrigine [Lamictal] 100 mg PO QHS 06/29/21 [History Last Taken 06/28/21] loratadine 10 mg PO QHS 06/29/21 [History Last Taken 06/28/21] melatonin 6 mg PO QHS 06/29/21 [History Last Taken 06/28/21] ondansetron HCl [Zofran] 4 mg PO Q8H PRN PRN 06/29/21 [History Last Taken 06/22/21] oxybutynin chloride 10 mg PO QHS 06/29/21 [History Last Taken 06/28/21] pantoprazole 40 mg PO BID 06/29/21 [History Last Taken 06/29/21] sertraline 75 mg PO DAILY 06/29/21 [History Last Taken 06/29/21] Allergy/AdvReac Type Severity Reaction Status Date / Time morphine Allergy NEEDS Verified 06/29/21 13:35 FOLLOW-UP shellfish derived Allergy NEEDS Verified 06/29/21 13:35 FOLLOW-UP tositumomab Allergy NEEDS Verified 06/29/21 13:35 FOLLOW-UP vancomycin Allergy NEEDS Verified 06/29/21 13:35 FOLLOW-UP Surgical History S/P implantation of automatic cardioverter/defibrillator (AICD) Social History housing: residential Smoking Status: Never smoker alcohol intake: never substance use type: does not use ROS ROS Narrative Review of systems otherwise negative from a constitutional, HEENT, respiratory, cardiovascular, GI, genitourinary, musculoskeletal, skin, neurologic, psychiatric and hematologic system unless stated above. Physical Exam Const alert and no apparent distress Constitutional Narrative: Ill-appearing elderly, frail female General Appearance: cooperative and comfortable HEENT normocephalic Teeth and Gingiva: edentulous Neck supple General: trachea midline Resp Resp Narrative: Difficult to assess due to positioning, does not want moved Effort and Inspection: able to speak in complete sentences and symmetric chest movement Auscultation: diminished lung sounds Cardio regular rate, regular rhythm, S1 normal heart sound and S2 normal heart sound GI soft to palpation and non-tender Auscultation: hyperactive bowel sounds Narrative: Chronic indwelling Cage draining clear yellow urine. Extremity Extremity Narrative: Pain with movement left leg General Extremity: Negative for edema Skin Skin Narrative: No wounds or rashes noted Neuro no focal motor deficits Neuro Narrative: Oriented to self, somewhat cooperative but confused. Psych Psych Narrative: Tearful. Not making eye contact. Mood & Affect: tearful and labile affect Thought Process: confused Insight: poor
[2021-07-05] MEDS: Magnesium Sulfate 4gm/100mL 4 GM/100 ML IV.SOLN. IV (11:16)
[2021-07-05] MEDS: Sertraline 50 MG Tablet 75 MG PO (11:17)
[2021-07-05] MEDS: Potassium Chloride Oral Tablet 20 MEQ 40 MEQ PO ×2 (11:17→16:45)
[2021-07-05] MEDS: Menthol/Lanolin/Calamine/Znox 113 GM Tube 1 APPLIC TOPICAL ×4 (11:17→22:16)
[2021-07-05 12:05] LABS: Bedside Glucose 134 mg/dL (70-110)
--- NOTE | 2021-07-05 13:02 | PCM.PROGNOTE ---
Documented by User: ROCIO Gordillo 07/05/21 13:21 Subjective Subjective Patient seen and examined. Patient continues to be confused, yelling out. Unable to obtain review of systems due to patient's confusion. Discussed patient with RN, no concerns noted. Objective Data Objective Data Vital Signs: Vital Signs Temp Pulse Resp BP Pulse Ox 97.2 F L 88 18 123/61 H 98 07/05/21 09:00 07/05/21 11:00 07/05/21 09:00 07/05/21 09:00 07/05/21 09:00 Oxygen Flow Rate (L/min) 1 Oxygen Delivery Method Room Air Weight: 102 lb 8.239 oz Body Mass Index (BMI) 15.9 Intake & Output: Intake and Output for Last 24 Hours 07/03/21 07/04/21 07/05/21 23:59 23:59 23:59 Intake Total 612.46 / 612.46 2916 / 2916 841 / 841 Output Total 275 / 525 1375 / 1375 750 / 750 Balance 337.46 / 87.46 1541 / 1541 91 / 91 Lab / Micro Data Result Diagrams: 07/05/21 07:00 07/05/21 07:00 Labs: Laboratory Results - last 24 hr 07/04/21 16:24: POC Glucose 244 H 07/04/21 22:43: POC Glucose 274 H 07/05/21 06:37: POC Glucose 150 H 07/05/21 07:00: WBC 8.0, RBC 3.29 L, Hgb 9.8 L, Hct 28.5 L, MCV 86.6, MCH 29.8, MCHC 34.4 D, RDW Std Deviation 47.8 H, RDW Coeff of Enrike 15.1 H, Plt Count 47 L*, MPV 12.5 H, Immature Gran % (Auto) 1.500 H, Neut % (Auto) 70.5 H, Lymph % (Auto) 13.4 L, [place] % (Auto) 9.0, Eos % (Auto) 5.3 H, Baso % (Auto) 0.3, Absolute Neuts (auto) 5.6, Absolute Lymphs (auto) 1.07, Nucleated RBC % 0, Diff Path Review February, Platelet Estimate MKD 07/05/21 07:00: Sodium 141, Potassium 2.3 L*, Chloride 106, Carbon Dioxide 31.0, Anion Gap 4 L, BUN 15, Creatinine 0.64, Estim Creat Clear Calc 64.33, Est GFR (MDRD) Af Amer 120, Est GFR (MDRD) Non-Af 99, BUN/Creatinine Ratio 23.4 H, Glucose 125 H, Calcium 7.3 L 07/05/21 07:00: Phosphorus 0.9 L*, Magnesium 1.3 L 07/05/21 11:26: POC Glucose 134 H Micro: Microbiology 06/29/21 13:56 Blood Culture (Wb) - Anticubital Right Blood Culture - Final No growth in 5 days. 06/29/21 13:56 Blood Culture (Wb) - Right Hand Blood Culture - Final No growth in 5 days. 07/01/21 20:25 Vomitus Gastric Occult Blood - Final Occult Blood Positive 06/29/21 15:20 Urine, Catheterized Urine Culture - Final Escherichia coli 07/01/21 20:25 Stool Stool Occult Blood (SONIA) - Final Occult Blood Positive 06/29/21 15:25 Nasal Secretion SARS-CoV-2 Antigen (Rapid) - Final Physical Exam Const Orientation / Consciousness: confused Exam Limitations: altered mental status HEENT normocephalic and head/scalp atraumatic Eyes conjunctivae normal and no scleral icterus Neck supple and no JVD General: trachea midline Resp normal respiratory effort, normal air movement and clear to auscultation bilaterally Cardio regular rate, regular rhythm, S1 normal heart sound and S2 normal heart sound Peripheral Pulses: pulses 2+ throughout GI normal to inspection, nondistended, normoactive bowel sounds, soft to palpation and non-tender Extremity normal capillary refill and no clubbing, cyanosis or edema General Extremity: no tenderness to palpation of joints or extremities Skin General Skin Exam: no breakdown and turgor normal Lesions: no lesions Rashes: no rashes Neuro no focal motor deficits and no sensory deficits noted Speech: speech normal Psych Mood & Affect: labile affect Thought Process: disorganized and confused Assessment & Plan Assessment/Plan (1) Hemorrhagic shock: (2) Closed fracture of greater trochanter of femur: QUALIFIERS: Encounter type: subsequent encounter (3) Encephalopathy acute: PLAN: 1. Hemorrhagic shock secondary to acute blood loss anemia as a result of upper GI bleed. -Status post 3 units packed red blood cells, hemoglobin stable -EGD showed 2 large -Fang tears with significant bleeding, status post 3 endoclips as well as cauterization with second evaluation of -Fang tear treated with argon beam coagulation -Continue PPI twice daily -Clear liquid diet -Further recommendations per GI 2. Hypokalemia, hypophosphatemia, hypomagnesemia -Potassium 2.3, patient received potassium chloride 40 mEq IV along with potassium phosphate 40 mm. -We will recheck potassium in a.m. -Magnesium sulfate 4 g IV ordered 2. Acute complicated UTI and hypoglycemia -Patient has history of neurogenic bladder/chronic urinary retention/chronic indwelling Cage catheter -Continue antibiotics for urinary tract infection, will transition to p.o. at discharge 3. Acute encephalopathy secondary to acute complicated UTI -See above 4. Hyperglycemia in the setting of diabetes mellitus type 2 -Resolved -Continue Accu-Cheks with sliding scale insulin -A1c 6.9% 5. Acute traumatic left greater trochanter avulsion fracture secondary to fall prior to admission -Orthopedic medicine consult -PT OT -As needed pain management regimen ordered -Patient refusing bone scan, ordered due to unclear nature of fracture on MRI 6. Incidental finding of liver hematoma -Outpatient follow-up, refusing CT We will continue home medication regiment for chronic conditions including CHF, paroxysmal A. fib, chronic kidney disease stage II, anxiety, COPD, hypertension, hyperlipidemia, GERD Plan to DC to SNF when medically stable DVT prophylaxis-SCDs This patient was seen by IVELISSE GordilloC under the supervision of Dr. Lopez. Documented by User: Dr. Ant Lopez MD 07/05/21 17:53 Subjective Subjective Patient is not in acute distress. Lying down. Platelet count dropped to 47,000 from 1 40,000. Potassium 2.3, phosphorus 0.9. Magnesium 1.3. Patient not on antiplatelet or anticoagulant agent. Objective Data Lab / Micro Data Result Diagrams: 07/05/21 07:00 07/05/21 07:00 Physical Exam Narrative Physical exam General: Awake. Mild lethargic. HEENT: Atraumatic, PERRLA, EOMI, Normocephalic Oral: Oral mucosa moist. Neck: Supple, No JVD, Negative Carotid Bruits Lungs: Air entry diminished in bilateral lung bases. No crepitation/rhonchi Cardiovascular: Sinus rhythm, Normal S2, No murmurs Abdomen: Bowel Sounds Present, Soft, Non Tender, Non-Distended : Chronic indwelling Cage catheter. No renal angle tenderness. No suprapubic tenderness. Extremities: Muscle atrophy of extremities. Chronic surgical scar jamie on left arm and forearm. ROM limited on left hip and knee. No edema Skin: No rashes, No breakdown Musculoskeletal: No tenderness on left hip and left proximal thigh. Restricted range of motion over left hip joint. Neurological: Cranial nerves II-XII grossly intact, DTR 2+/4 and Symmetrical, Neuro grossly intact Psych/Mental Status: Flat affect. Assessment & Plan Assessment/Plan (1) Hemorrhagic shock: (2) Anemia: QUALIFIERS: Anemia type: unspecified type Qualified Code(s): D64.9 - Anemia, unspecified PLAN: This patient was seen in conjunction with CECILY Mora. I have independently interviewed and examined the patient and reviewed pertinent history, examination findings, laboratory and plan of management. I have reviewed the note and agree with the documented findings with the few additional points. In brief, patient is admitted for acute encephalopathy with confusion and disorientation probably due to complicated UTI. Patient has chronic Cage catheter with history of neurogenic bladder. Urine culture shows ESBL E. coli UTI and antibiotic changed to IV meropenem. Patient had fall an having left hip and left thigh pain. X-ray and CT scan of left lower extremity reviewed. Besides greater trochanteric avulsion fracture it shows a sclerotic left femoral lesion, unknown etiology. Metastasis is primary consideration. Patient refused further imaging including bone scan and CT abdomen. Hemorrhagic shock secondary to upper GI bleed: Patient had hematemesis and hematochezia probably from rapid upper GI bleed. 2D echo shows EF 60%, LV systolic function normal, stage I diastolic function consistent with chronic diastolic heart failure. Echo also showed large liver mass gelatinous in appearance. Discussed with suture winder hand and global commodity manager. Patient had 3 units of PRBC transfusion. Patient not on anticoagulant. EGD on 07/02 showed 2 large -Fang tear with large hiatus hernia and patient had 3 endoclips. 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 It was dilated. CT abdomen with contrast was ordered to look for liver mass shown on echo but patient declined any further imaging including bone scan. Patient hemodynamically stabilized and transferred to PCU on 07/03. Patient had repeat EGD showed -Fang tear treated with argon beam laser coagulation. Normal cardia, gastric fundus, antrum and normal D2. Continue Protonix 40 g p.o. twice daily for rest of life. 07/05: Diet advanced to soft transitional diet. Patient has hypokalemia, hypomagnesemia and hypophosphatemia. Acute thrombocytopenia on chronic thrombocytopenia. Patient not on antiplatelet agent or anticoagulant. Electrolytes are getting replaced. Recheck labs. Patient also had episode of hypoglycemia. Other multiple comorbidities and poor functional status DNR CCA with no intubation I have discussed my assessment with CECILY Mora and orders have been reviewed. Charges/Coding Visit Charges Inpatient E&M: 24657 Subs Hosp L2
--- NOTE | 2021-07-05 13:57 | CASEMGMT ---
SHAHRIAR faxed updates to [facility] and let them know she may be discharged tomorrow. Kaley Johnson REAL ESTATE LEASING MANAGER CHANTEL
--- NOTE | 2021-07-05 15:57 | CHAPLAIN ---
Type of Pastoral Visit _x__ Initial Visit ___ Follow-up Visit ___ On-call Visit ___ General Patient Visit ___ Spiritual Assessment ___ Family Conference ___ Bereavement ___ Rapid Response ___ Code Blue ___ Other (describe below) Pastoral Care Referral From _x__ Patient ___ Family ___ Nurse ___ Physician ___ Course Developer ___ Grinding Wheel Operator ___ Other (describe below) Sacrament/Intervention ___ Active listening ___ Anointing ___ Anabaptism ___ Bereavement ___ Communion ___ Bhavani exploration ___ ___ Life review _x__ Prayer ___ Reconciliation ___ Sacrament of Sick _x__ Supportive presence ___ Wedding ___ Other (describe below) Pastoral Comments patient is awake but is trying to move about in her bed to find something more comfortable; sat with patient with some distraction and comfort attempts; music channel was playing and I sang along with the hymns; pt did state that she went to a [employer] in [facility] before moving to [place] to be near her daughter; pt welcomed a prayer; notified aide that pt was expressing discomfort in bed
[2021-07-05 18:05] LABS: Bedside Glucose 283 mg/dL (70-110)
[2021-07-05 22:06] LABS: Bedside Glucose 178 mg/dL (70-110)
[2021-07-05] MEDS: Atorvastatin Calcium 40 MG Tablet PO (22:15)
[2021-07-05] MEDS: MELATONIN 3 MG TABLET 6 MG PO (22:15)
[2021-07-05] MEDS: Ferrous Sulfate 325 MG Tablet PO (22:19)
[2021-07-05] MEDS: Tolterodine Tartrate 2 MG CAP.SA PO (22:19)
[2021-07-05 23:19] LABS: Magnesium 2.3 mg/dL (1.6-2.6); Potassium 4.2 mmol/L (3.5-5.1)
[2021-07-05 23:31] LABS: Phosphorus 3.5 mg/dL (2.5-4.9)
[2021-07-06 03:00] VITALS: BP 132/66; PULSE 81; PULSE 89; RESP 18; TEMP 37; O2SAT 96
[2021-07-06 05:28] LABS: Absolute Lymphocyte Count 1.49 X10^3/uL (0.83-4.51); Absolute Neutrophil Count 8.6 X10^3/uL (2.0-7.7); Basophil# 0.03 X10^3/uL; Basophil% 0.2 % (0-1); Eosinophil# 0.44 X10^3/uL; Eosinophils% 3.7 % (0-5); Hematocrit 31.6 % (37-47); Hemoglobin 10.8 g/dL (12.0-15.0); Lymphocyte # 1.49 X10^3/ul (0.83-4.51); Lymphocyte % 12.4 % (19-41); Mean Corp Hgb Conc 34.2 g/dL (32-36); Mean Corpuscular Hgb 30.1 pg (27.0-32.0); Mean Platelet Vol. 11.3 fl (6.2-12.0); Monocyte# 1.36 X10^3/uL; Monocyte% 11.3 % (0-10); NRBC Flagged by Analyzer 0 % (0-5); Neutrophil # 8.56 X10^3/uL (2.7-7.7); Neutrophil % 71.3 % (47-70); POSITIVE COUNT YES; Platelet Count 53 K/mm3 (150-450); RBC Distribution Width CV 15.5 % (11.6-14.6); RBC Distribution Width SD 49.8 fl (35.1-43.9); Red Blood Count 3.59 M/mm3 (4.2-5.4)
[2021-07-06 05:56] LABS: Anion Gap 3 (5-15); BUN 10 mg/dL (7-18); BUN/Creat Ratio 17.6 RATIO (10-20); Calcium,Total 6.8 mg/dL (8.5-10.1); Chloride 107 mmol/L (98-107); Creatinine, Serum 0.57 mg/dL (0.55-1.02); EST Glomerular Filtration Rate 114 mL/min (>60); Est Glom Filt Rate - Afr Amer 137 mL/min (>60); Estimated Creatinine Clearance 72.23 ml/min; Glucose 182 mg/dL (74-106); Potassium 4.2 mmol/L (3.5-5.1); Sodium Level 139 mmol/L (136-145)
[2021-07-06] MEDS: Insulin Lispro 100 UNIT/ML INSULN.PEN SC ×2 (06:55→11:32)
[2021-07-06 07:00] VITALS: PULSE 93
[2021-07-06 07:01] LABS: Bedside Glucose 183 mg/dL (70-110)
[2021-07-06 08:16] VITALS: O2SAT 92
[2021-07-06 09:00] VITALS: BP 116/60; PULSE 82; RESP 16; TEMP 37; O2SAT 93
[2021-07-06] MEDS: Potassium Chloride Oral Tablet 20 MEQ 40 MEQ PO (09:04)
[2021-07-06] MEDS: Menthol/Lanolin/Calamine/Znox 113 GM Tube 1 APPLIC TOPICAL (09:08)
[2021-07-06] MEDS: Sertraline 50 MG Tablet 75 MG PO (09:08)
--- NOTE | 2021-07-06 09:43 | TREXTCAR_ITS ---
Diet 07/05/21 14:54 Diet: Regular - General Food consistency:: Soft & Bite Sized Liquid Consistency:: Regular/Thin Is pt able to select menu?: No Routine Orders/Code Status Enema Type: Fleetz Enema Frequency: Daily PRN Suppository Type: Dulcolax 10mg Suppository Frequency: Daily PRN O2 Frequency: PRN Code Status: DNRCC-A (no intubation) Wound(s) LT FOREHEAD: Wound Type: Abrasion BACK OF RT HAND: Wound Type: Abrasion Suggestions for Active Care Change Position every (hours): 2 Therapies Weight Bearing: Weight bearing as tolerated (no active abduction of the left hip for 6 weeks) Extremity Affected:: Left Lower Physical Therapy: Eval and Treat Occupational Therapy: Eval and Treat Speech Therapy: Eval and Treat Problem/Diagnosis (1) Hemorrhagic shock: Status: Acute (2) Anemia: Status: Acute Allergies/Procedures Done in Hospital Allergies morphine Allergy (Verified 06/29/21 13:35) NEEDS FOLLOW-UP shellfish derived Allergy (Verified 06/29/21 13:35) NEEDS FOLLOW-UP tositumomab Allergy (Verified 06/29/21 13:35) NEEDS FOLLOW-UP vancomycin Allergy (Verified 06/29/21 13:35) NEEDS FOLLOW-UP Procedures: 2-D Echocardiogram, Blood transfusion, EGD and EKG Type of Care/Length of Stay Estimated LOS: More Than 30 Days Type of Care Needed: Intermediate Rehab Potential: Fair Prognosis: Fair Additional Orders/Day of Discharge Additional Orders: Psychology to follow up w/pt as appropriate Day of Discharge: 07/06/21 Dietary and Speech Recommendations Dietitian Recommendations/Changes: Recommend advance diet as tolerated to transitional. Recommend MID[employer]LE [employer]CHO[employer] FOOTBALL COACH evaluation when appropriate for PO intake. Recommend Ensure w/ medpass when PO diet is advanced. Discharge Plan Admission Admit Date/Time: 06/29/21 16:03 Primary Reason for Your Visit: GI bleed, Hemorrhagic shock Attending Provider: Herve Rodrigues Primary Care Provider: Clayton Pollard Consulting Providers: Kaleb Charles ; Gurwinder Peters ; Hyun Solis ASBESTOS ABATEMENT TECHNICIAN ; Bernardo Maher Instructions Patient Instructions: Bleeding Gastrointestinal Discharge Orders/Prescriptions Prescriptions: New acetaminophen [Tylenol] 325 mg Tablet 650 mg PO Q4H PRN PRN (Reason: Fever, pain 1-07/29) Qty: 0 RF: 0 potassium chloride [Klor-Con M20] 20 mEq Tablet,Er Particles/Crystals 20 meq PO BIDCM 30 Days Qty: 0 RF: 0 Continued sertraline 25 mg Tablet 75 mg PO DAILY RF: 0 buspirone 5 mg Tablet 5 mg PO TID RF: 0 oxybutynin chloride 10 mg Tablet Extended Release 24hr 10 mg PO QHS RF: 0 Lactobacillus acidophilus Tablet 100 mmu cells PO QHS RF: 0 pantoprazole 40 mg Tablet,Delayed Release (Dr/Ec) 40 mg PO BID RF: 0 lamotrigine [Lamictal] 100 mg Tablet 100 mg PO QHS RF: 0 loratadine 10 mg Tablet 10 mg PO QHS RF: 0 atorvastatin 40 mg Tablet 40 mg PO QHS RF: 0 melatonin 3 mg Tablet 6 mg PO QHS RF: 0 ferrous sulfate 325 mg (65 mg iron) Tablet 325 mg PO QHS RF: 0 gabapentin 300 mg Capsule 300 mg PO QHS RF: 0 insulin regular human 100 unit/mL (3 mL) Insulin Pen See Protocol unit subcut ACHS RF: 0 No Action ondansetron HCl [Zofran] 4 mg Tablet 4 mg PO Q8H PRN PRN (Reason: Nausea) RF: 0 Referrals / Follow Up: Clayton Pollard MD [Primary Care Provider] - Disposition Disposition (needs filled in before D/C Order can be placed): NonSkilled NH/Intermed Care
--- NOTE | 2021-07-06 10:13 | PCM.DC.SUM ---
Documented by User: ROCIO Gordillo 07/06/21 10:31 Providers Date of Admission: 06/29/21 Primary Care Physician: Dr. Clayton Pollard MD Consultations 06/30/21 11:41 Consult: Orthopedics Routine Consulting Provider: Bernardo Maher Reason for Consult: Greater trochanter fracture, left EMERGENT Consult: No MD Notified: Yes Date Notified: 06/30/21 Time Notified: 13:06 Method of Notification: telephone 07/02/21 07:32 Consult: Hanging Flags Decorator / Pulmonary Medicine Routine Consulting Provider: Pulmonary Medicine [facility] Reason for Consult: Hypotension with upper and lower GI BLEED, Hemorrhage EMERGENT Consult: No MD Notified: Yes Date Notified: 07/02/21 Time Notified: 07:32 Method of Notification: in person Method of Consult:: In-Person 07/02/21 07:42 Consult: Gastroenterology Routine Consulting Provider: [facility] Reason for Consult: GI bleed with severe anemia EMERGENT Consult: No MD Notified: Yes Date Notified: 07/02/21 Time Notified: 07:42 Method of Notification: Verbal Reason For Visit: ACUTE ENCEPHALOPATHY HYPOGLYCEMIA Diagnosis Discharge Diagnosis (1) Hemorrhagic shock: Status: Acute Code(s): R57.8 - Other shock (2) Anemia: Status: Acute Code(s): D64.9 - Anemia, unspecified Qualifiers: Anemia type: unspecified type Qualified Code(s): D64.9 - Anemia, unspecified Medications at Discharge Home Medications Lactobacillus acidophilus 100 mmu cells PO QHS 06/29/21 atorvastatin 40 mg PO QHS 06/29/21 buspirone 5 mg PO TID 06/29/21 ferrous sulfate 325 mg PO QHS 06/29/21 gabapentin 300 mg PO QHS 06/29/21 insulin regular human See Protocol SUBCUT ACHS 06/29/21 lamotrigine [Lamictal] 100 mg PO QHS 06/29/21 loratadine 10 mg PO QHS 06/29/21 melatonin 6 mg PO QHS 06/29/21 ondansetron HCl [Zofran] 4 mg PO Q8H PRN PRN 06/29/21 oxybutynin chloride 10 mg PO QHS 06/29/21 pantoprazole 40 mg PO BID 06/29/21 sertraline 75 mg PO DAILY 06/29/21 acetaminophen [Tylenol] 650 mg PO Q4H PRN PRN #0 tab 07/06/21 potassium chloride [Klor-Con M20] 20 meq PO BIDCM 30 Days #0 tab 07/06/21 Hospital Course Procedures 2-D Echocardiogram, Blood transfusion, EGD and EKG Summary of Care Provided Minutes Spent on Discharge: 35 Hospital Course: Patient is a 65-year-old female who [facility]. Patient was noted to have altered mental status the morning after the fall. Patient was found to have a complicated urinary tract infection due to chronic Cage as well as hypoglycemia and hypokalemia and a left femur fracture. Patient received 6-day course of IV Merrem for complicated UTI and altered mental status improved with treatment. Hypoglycemia and hyperkalemia resolved with treatment and continues to be stable. Patient was seen by orthopedics who recommended a bone scan due to possible sclerotic lesion noted by radiology on CT. Patient and family refused bone scan. Recommendations for patient to follow-up with PT and OT with weightbearing as tolerated and no active hip abduction for 6 weeks. On 07/02/2021 patient developed GI bleed and was noted to be having coffee-ground emesis at which time GI was consulted and patient underwent an EGD where patient was noted to have 2 -Fang tears for which 3 endoclips were placed along with utilization of cauterization to control bleeding. Patient subsequently underwent a second EGD on 07/04/2021 where Fang tear was treated with argon beam coagulation and 2 of the 3 endoclips were removed. Patient hemoglobin has remained stable following GI bleed. BMP within normal limits following electrolyte replacement on 07/05/2021 Physical Exam Const alert and no apparent distress General Appearance: cooperative Orientation / Consciousness: oriented to person and confused HEENT normocephalic and head/scalp atraumatic Eyes conjunctivae normal and no scleral icterus Resp normal respiratory effort, normal air movement and clear to auscultation bilaterally GI normal to inspection, nondistended, normoactive bowel sounds, soft to palpation and non-tender Extremity normal capillary refill and no clubbing, cyanosis or edema Left Lower Extremity: upper leg Positive for palpation (Tender) Skin skin turgor normal General Skin Exam: no breakdown Lesions: no lesions Rashes: no rashes Neuro no focal motor deficits and no sensory deficits noted Speech: speech normal Motor Exam: general weakness Psych Thought Process: confused Weight / BMI Weight Weight: 102 lb 8.239 oz Body Mass Index (BMI) 15.9 ABG / Lab / Microbiology Data Result Diagrams: 07/06/21 05:10 07/06/21 05:10 Laboratory: Laboratory Results - last 24 hr 07/05/21 11:26: POC Glucose 134 H 07/05/21 16:40: POC Glucose 283 H 07/05/21 21:59: POC Glucose 178 H 07/05/21 22:50: Phosphorus 3.5 07/05/21 22:50: Potassium 4.2, Magnesium 2.3 07/06/21 05:10: WBC 12.0 H, RBC 3.59 L, Hgb 10.8 L, Hct 31.6 L, MCV 88.0, MCH 30.1, MCHC 34.2, RDW Std Deviation 49.8 H, RDW Coeff of Enrike 15.5 H, Plt Count 53 L, MPV 11.3, Immature Gran % (Auto) 1.100 H, Neut % (Auto) 71.3 H, Lymph % (Auto) 12.4 L, Haines % (Auto) 11.3 H, Eos % (Auto) 3.7, Baso % (Auto) 0.2, Absolute Neuts (auto) 8.6 H, Absolute Lymphs (auto) 1.49, Nucleated RBC % 0 07/06/21 05:10: Sodium 139, Potassium 4.2, Chloride 107, Carbon Dioxide 29.0, Anion Gap 3 L, BUN 10, Creatinine 0.57, Estim Creat Clear Calc 72.23, Est GFR (MDRD) Af Amer 137, Est GFR (MDRD) Non-Af 114, BUN/Creatinine Ratio 17.6, Glucose 182 H, Calcium 6.8 L 07/06/21 06:54: POC Glucose 183 H Microbiology: Microbiology 06/29/21 13:56 Blood Culture (Wb) - Anticubital Right Blood Culture - Final No growth in 5 days. 06/29/21 13:56 Blood Culture (Wb) - Right Hand Blood Culture - Final No growth in 5 days. 07/01/21 20:25 Vomitus Gastric Occult Blood - Final Occult Blood Positive 06/29/21 15:20 Urine, Catheterized Urine Culture - Final Escherichia coli 07/01/21 20:25 Stool Stool Occult Blood (SONIA) - Final Occult Blood Positive 06/29/21 15:25 Nasal Secretion SARS-CoV-2 Antigen (Rapid) - Final D/C Instructions Discharge Diet: No restrictions Discharge Activity: Return to Normal Activity Weight Bearing Status: Weight bearing as tolerated Call your doctor if you observe: Fever of 101 or Higher, Shortness of breath, Chest pain and Uncontrolled pain Please Follow Up With: Clayton Pollard When: 1-2 weeks Meaningful Use Info Meaningful Use Diagnoses (Choose all that apply): None applicable Discharge Plan Admission Admit Date/Time: 06/29/21 16:03 Primary Reason for Your Visit: GI bleed, Hemorrhagic shock Attending Provider: Herve Rodrigues Primary Care Provider: Clayton Pollard Consulting Providers: Kalbe Charles ; Gurwinder Peters ; Hyun Solis FACILITIES MANAGEMENT EXECUTIVE ; Bernardo Maher Instructions Patient Instructions: Bleeding Gastrointestinal Additional Instructions / Restrictions: Patient Problems: Altered Health Status related to Hospitalization Patient Goals: *Optimal Level of Health *Keep Appointments *Medication Compliance *Remain Safe Discharge Orders/Prescriptions Prescriptions: New acetaminophen [Tylenol] 325 mg Tablet 650 mg PO Q4H PRN PRN (Reason: Fever, pain -07/29) Qty: 0 RF: 0 potassium chloride [Klor-Con M20] 20 mEq Tablet,Er Particles/Crystals 20 meq PO BIDCM 30 Days Qty: 0 RF: 0 Continued sertraline 25 mg Tablet 75 mg PO DAILY RF: 0 buspirone 5 mg Tablet 5 mg PO TID RF: 0 oxybutynin chloride 10 mg Tablet Extended Release 24hr 10 mg PO QHS RF: 0 Lactobacillus acidophilus Tablet 100 mmu cells PO QHS RF: 0 pantoprazole 40 mg Tablet,Delayed Release (Dr/Ec) 40 mg PO BID RF: 0 lamotrigine [Lamictal] 100 mg Tablet 100 mg PO QHS RF: 0 loratadine 10 mg Tablet 10 mg PO QHS RF: 0 atorvastatin 40 mg Tablet 40 mg PO QHS RF: 0 melatonin 3 mg Tablet 6 mg PO QHS RF: 0 ferrous sulfate 325 mg (65 mg iron) Tablet 325 mg PO QHS RF: 0 gabapentin 300 mg Capsule 300 mg PO QHS RF: 0 insulin regular human 100 unit/mL (3 mL) Insulin Pen See Protocol unit subcut ACHS RF: 0 No Action ondansetron HCl [Zofran] 4 mg Tablet 4 mg PO Q8H PRN PRN (Reason: Nausea) RF: 0 Referrals / Follow Up: Clayton Pollard MD [Primary Care Provider] - Disposition Disposition (needs filled in before D/C Order can be placed): NonSkilled NH/Intermed Care Documented by User: Dr. Herve Rodrigues DO 07/06/21 20:34 Providers Date of Admission: 06/29/21 Reason For Visit: ACUTE ENCEPHALOPATHY HYPOGLYCEMIA Medications at Discharge Home Medications Lactobacillus acidophilus 100 mmu cells PO QHS 06/29/21 atorvastatin 40 mg PO QHS 06/29/21 buspirone 5 mg PO TID 06/29/21 ferrous sulfate 325 mg PO QHS 06/29/21 gabapentin 300 mg PO QHS 06/29/21 insulin regular human See Protocol SUBCUT ACHS 06/29/21 lamotrigine [Lamictal] 100 mg PO QHS 06/29/21 loratadine 10 mg PO QHS 06/29/21 melatonin 6 mg PO QHS 06/29/21 ondansetron HCl [Zofran] 4 mg PO Q8H PRN PRN 06/29/21 oxybutynin chloride 10 mg PO QHS 06/29/21 pantoprazole 40 mg PO BID 06/29/21 sertraline 75 mg PO DAILY 06/29/21 acetaminophen [Tylenol] 650 mg PO Q4H PRN PRN #0 tab 07/06/21 potassium chloride [Klor-Con M20] 20 meq PO BIDCM 30 Days #0 tab 07/06/21 ABG / Lab / Microbiology Data Result Diagrams: 07/06/21 05:10 07/06/21 05:10 Discharge Plan Admission Admit Date/Time: 06/29/21 16:03 Primary Reason for Your Visit: GI bleed, Hemorrhagic shock Attending Provider: Herve Rodrigues Primary Care Provider: Clayton Pollard Consulting Providers: Kaleb Charles ; Gurwinder Peters ; Hyun Solis FACILITIES MANAGEMENT EXECUTIVE ; Bernardo Maher Instructions Patient Instructions: Bleeding Gastrointestinal Additional Instructions / Restrictions: Patient Problems: Altered Health Status related to Hospitalization Patient Goals: *Optimal Level of Health *Keep Appointments *Medication Compliance *Remain Safe Discharge Orders/Prescriptions Prescriptions: New acetaminophen [Tylenol] 325 mg Tablet 650 mg PO Q4H PRN PRN (Reason: Fever, pain 1-07/29) Qty: 0 RF: 0 potassium chloride [Klor-Con M20] 20 mEq Tablet,Er Particles/Crystals 20 meq PO BIDCM 30 Days Qty: 0 RF: 0 Continued sertraline 25 mg Tablet 75 mg PO DAILY RF: 0 buspirone 5 mg Tablet 5 mg PO TID RF: 0 oxybutynin chloride 10 mg Tablet Extended Release 24hr 10 mg PO QHS RF: 0 Lactobacillus acidophilus Tablet 100 mmu cells PO QHS RF: 0 pantoprazole 40 mg Tablet,Delayed Release (Dr/Ec) 40 mg PO BID RF: 0 lamotrigine [Lamictal] 100 mg Tablet 100 mg PO QHS RF: 0 loratadine 10 mg Tablet 10 mg PO QHS RF: 0 atorvastatin 40 mg Tablet 40 mg PO QHS RF: 0 melatonin 3 mg Tablet 6 mg PO QHS RF: 0 ferrous sulfate 325 mg (65 mg iron) Tablet 325 mg PO QHS RF: 0 gabapentin 300 mg Capsule 300 mg PO QHS RF: 0 insulin regular human 100 unit/mL (3 mL) Insulin Pen See Protocol unit subcut ACHS RF: 0 No Action ondansetron HCl [Zofran] 4 mg Tablet 4 mg PO Q8H PRN PRN (Reason: Nausea) RF: 0 Referrals / Follow Up: Clayton Pollard MD [Primary Care Provider] - Disposition Disposition (needs filled in before D/C Order can be placed): NonSkilled NH/Intermed Care Charges/Coding Addendum Addendum: Patient was seen and examined independently of Jayashree Perez today, she appears stable for discharge to a nursing home facility at this time. On examination she appeared older than her stated age, she appears confused, she does not appear to be in any distress. Vital signs as documented. Skin warm and dry and without overt rashes. Neck without JVD, thyroid appears normal, trachea is midline, neck is supple. Lungs clear, normal air movement was noted. Heart exam notable for regular rhythm, normal sounds and absence of murmurs, rubs or gallops. Abdomen unremarkable and without evidence of organomegaly, masses, or abdominal aortic enlargement, bowel sounds are present in all 4 quadrants, no abdominal tenderness was noted. Extremities nonedematous, no cyanosis was noted, no clubbing was noted. Neuro: Cranial nerves II through XII are grossly intact, no focal motor deficits were noted, sensation to light touch and pinprick is intact, motor exam 5/5 throughout. Psych: Patient is alert and confused Patient appears stable at this time for return to the extended care facility, we informally contacted infectious diseases to inquire as to the length of time she needed to be treated for ESBL E. coli and we were told that she has received an adequate amount of treatment at 6 days. I have reviewed Jayashreelorie Perez's discharge summary including her medical assessment and plan of care and endorse it. Visit Charges Inpatient E&M: 18626 Disch Hosp
--- NOTE | 2021-07-06 10:39 | CASEMGMT ---
Patient is ready for discharge back to [facility]. SHAHRIAR called and left a voice mail for Inder at [facility] letting her know patient will be returning today. SHAHRIAR faxed orders to [facility]. SHAHRIAR called patient's daughter Alix and left her a voice mail letting her know patient will be returning today. SHAHRIAR notified RN patient will need a COVID test first. Await COVID test results. Plan: d/c back to [facility] under intermediate level of care. [facility] to transport patient. Kaley GOLDEN
--- NOTE | 2021-07-06 11:06 | PHA.DC.MR ---
Pharmacy Service has performed discharge medication reconciliation for this patient. The patient's discharge medication list was reviewed for discrepancies and discrepancies were resolved. Home Medications Lactobacillus acidophilus 100 mmu cells PO QHS 06/29/21 atorvastatin 40 mg PO QHS 06/29/21 buspirone 5 mg PO TID 06/29/21 ferrous sulfate 325 mg PO QHS 06/29/21 gabapentin 300 mg PO QHS 06/29/21 insulin regular human See Protocol SUBCUT ACHS 06/29/21 lamotrigine [Lamictal] 100 mg PO QHS 06/29/21 loratadine 10 mg PO QHS 06/29/21 melatonin 6 mg PO QHS 06/29/21 ondansetron HCl [Zofran] 4 mg PO Q8H PRN PRN 06/29/21 oxybutynin chloride 10 mg PO QHS 06/29/21 pantoprazole 40 mg PO BID 06/29/21 sertraline 75 mg PO DAILY 06/29/21 acetaminophen [Tylenol] 650 mg PO Q4H PRN PRN #0 tab 07/06/21 potassium chloride [Klor-Con M20] 20 meq PO BIDCM 30 Days #0 tab 07/06/21
[2021-07-06 12:20] LABS: Bedside Glucose 207 mg/dL (70-110)
--- NOTE | 2021-07-06 12:51 | NURSING ---
report called to [facility] to balta schuster with no questions voiced.
[2021-07-06] MEDS: Ondansetron 4 MG/2 ML Vial IV (13:23)
[2021-07-06 14:07] VITALS: BP 137/72; PULSE 88; RESP 14; TEMP 36.9; O2SAT 96
[2021-07-06 14:20] VITALS: PULSE 89
[2021-07-06 14:36] LABS: Pathologist Review Reviewed
--- NOTE | 2021-07-06 16:48 | CASEMGMT ---
SHAHRIAR faxed patient's negative COVID test to [facility]. SHAHRIAR arranged for patient to get picked up at 1430 via cot. SHAHRIAR notified RNInder at [facility], litigation secretary, and patient's daughter. Plan: d/c back to [facility] under intermediate level of care. Kaley Johnson [employer]
== END 2021-07-06 14:56 | disposition intermediate care facility (04) | DRG 242 ==
LOC: ED 14:49 → PCU 15:52 → ICU 07-02 04:54 → PCU 07-03 14:46
PROVIDERS: Internal Medicine; Internal Medicine Critical Care Medicine; Internal Medicine Gastroenterology; Nurse Practitioner Family; Admitting Provider Family Medicine; Emergency Provider Emergency Medicine; PCP Family Medicine; Visit Provider Internal Medicine
PROC: 0DJ08ZZ Inspection of Upper Intestinal Tract, Via Natural or Artificial Opening Endoscopic (ICD-10-PCS; CPT 43235; principal; 2021-07-02 13:25)
DX: K22.6 Gastro-esophageal laceration-hemorrhage syndrome (principal); T83.511A Infection and inflammatory reaction due to indwelling urethral catheter, initial encounter; Y84.6 Urinary catheterization as the cause of abnormal reaction of the patient, or of later complication, without mention of misadventure at the time of the procedure; R57.8 Other shock; S72.112A Displaced fracture of greater trochanter of left femur, initial encounter for closed fracture; W19.XXXA Unspecified fall, initial encounter; Y93.9 Activity, unspecified; Y92.129 Unspecified place in nursing home as the place of occurrence of the external cause; N39.0 Urinary tract infection, site not specified; S36.112A Contusion of liver, initial encounter; E11.649 Type 2 diabetes mellitus with hypoglycemia without coma; B96.20 Unspecified Escherichia coli [E. coli] as the cause of diseases classified elsewhere; K22.2 Esophageal obstruction; J44.9 Chronic obstructive pulmonary disease, unspecified; K44.9 Diaphragmatic hernia without obstruction or gangrene; E87.6 Hypokalemia; E78.5 Hyperlipidemia, unspecified; D64.9 Anemia, unspecified; E87.0 Hyperosmolality and hypernatremia; E83.39 Other disorders of phosphorus metabolism; F31.9 Bipolar disorder, unspecified; F41.8 Other specified anxiety disorders; I42.9 Cardiomyopathy, unspecified; I48.0 Paroxysmal atrial fibrillation; I50.32 Chronic diastolic (congestive) heart failure; I11.0 Hypertensive heart disease with heart failure; D50.9 Iron deficiency anemia, unspecified; D69.6 Thrombocytopenia, unspecified; D62 Acute posthemorrhagic anemia; I44.4 Left anterior fascicular block; N31.9 Neuromuscular dysfunction of bladder, unspecified; G93.41 Metabolic encephalopathy; K21.9 Gastro-esophageal reflux disease without esophagitis; E87.8 Other disorders of electrolyte and fluid balance, not elsewhere classified; E83.42 Hypomagnesemia; Z66 Do not resuscitate; Z79.4 Long term (current) use of insulin; Z79.899 Other long term (current) drug therapy; Z87.440 Personal history of urinary (tract) infections; Z16.12 Extended spectrum beta lactamase (ESBL) resistance
CPT/HCPCS: 36415; 36569; 70450; 71045; 73502; 73552; 73700; 80048; 80053; 81001; 82271; 82274; 82542; 82607; 82746; 82962; 83540; 83550; 83605; 83735; 84100; 84132; 84484; 85014; 85018; 85025; 85027; 85610; 85730; 86644; 86850; 86900; 86901; 86920; 86922; 87040; 87077; 87086; 87088; 87186; 87426; 93005; 93306; 97802; 99251; 99285; J2185; J7030; J7040; J7050; P9016; Q9957; A4216; G0463; J2405; J3490

== ENCOUNTER → 2021-07-12 05:00 | Outpatient (REF) | payer MEDICAID, SELFPAY ==
[2021-07-12 09:48] LABS: Hematocrit 30.2 % (37-47); Hemoglobin 9.5 g/dL (12.0-15.0); Mean Corp Hgb Conc 31.5 g/dL (32-36); Mean Corpuscular Hgb 29.6 pg (27.0-32.0); Mean Corpuscular Volume 94.1 fL (81-99); Mean Platelet Vol. 10.6 fl (6.2-12.0); Platelet Count 204 K/mm3 (150-450); RBC Distribution Width CV 15.8 % (11.6-14.6); RBC Distribution Width SD 54.2 fl (35.1-43.9); Red Blood Count 3.21 M/mm3 (4.2-5.4); White Blood Count 6.9 K/mm3 (4.4-11.0)
[2021-07-12 10:10] LABS: ALB/GLOB Ratio 0.5 RATIO (0.9-2.4); AST(SGOT) 20 U/L (15-37); Alanine Aminotransfer ALT/SGPT 13 U/L (13-56); Albumin, Serum 1.4 g/dL (3.2-5.0); Alkaline Phosphatase 110 U/L (45-117); Anion Gap 1 (5-15); BUN 15 mg/dL (7-18); BUN/Creat Ratio 24.9 RATIO (10-20); Calcium,Total 7.9 mg/dL (8.5-10.1); Chloride 107 mmol/L (98-107); EST Glomerular Filtration Rate 106 mL/min (>60); Est Glom Filt Rate - Afr Amer 128 mL/min (>60); Globulin 3.1 g/dL (2.2-4.2); Glucose 101 mg/dL (74-106); Potassium 4.2 mmol/L (3.5-5.1); Protein, Total 4.5 g/dL (6.4-8.2); Sodium Level 140 mmol/L (136-145)
== END ==
LOC: OLS.SW500 05:00
PROVIDERS: PCP Family Medicine; Visit Provider Family Medicine
DX: D64.9 Anemia, unspecified (principal); J44.9 Chronic obstructive pulmonary disease, unspecified; E11.9 Type 2 diabetes mellitus without complications
CPT/HCPCS: 36415; 80053; 85027

== ENCOUNTER 2021-07-16 00:49 | Emergency (ER) | payer MEDICAID, SELFPAY ==
[2021-07-16 00:52] VITALS: BP 49/34; PULSE 101; RESP 5; TEMP 36.1; O2SAT 88; BMI 18.6
--- NOTE | 2021-07-16 00:58 | EX.ED.DYSGE1 ---
HPI History of Present Illness Chief Complaint: Unresponsive Narrative Narrative: 65-year-old female [place] and presents unresponsive. Reportedly she was doing fine during the day shift. She was found unresponsive this evening. EMS notes that her blood sugar was reading low. Patient is unresponsive at this time and cannot contribute to the story. She is a DNR Comfort Care arrest. [facility] Medical History Bipolar disorder Cardiomyopathy Chronic anemia Chronic CHF Chronic indwelling Cage catheter CKD (chronic kidney disease), stage III COPD exacerbation Depression with anxiety Diabetes mellitus type 2 in nonobese GERD (gastroesophageal reflux disease) HLD (hyperlipidemia) HTN (hypertension) PAF (paroxysmal atrial fibrillation) Home Medications Lactobacillus acidophilus 100 mmu cells PO QHS 06/29/21 [History Last Taken 06/28/21] atorvastatin 40 mg PO QHS 06/29/21 [History Last Taken 06/28/21] buspirone 5 mg PO TID 06/29/21 [History Last Taken 06/29/21] ferrous sulfate 325 mg PO QHS 06/29/21 [History Last Taken 06/28/21] gabapentin 300 mg PO QHS 06/29/21 [History Last Taken 06/28/21] insulin regular human See Protocol SUBCUT ACHS 06/29/21 [History Last Taken 06/29/21] lamotrigine [Lamictal] 100 mg PO QHS 06/29/21 [History Last Taken 06/28/21] loratadine 10 mg PO QHS 06/29/21 [History Last Taken 06/28/21] melatonin 6 mg PO QHS 06/29/21 [History Last Taken 06/28/21] ondansetron HCl [Zofran] 4 mg PO Q8H PRN PRN 06/29/21 [History Last Taken 06/22/21] oxybutynin chloride 10 mg PO QHS 06/29/21 [History Last Taken 06/28/21] pantoprazole 40 mg PO BID 06/29/21 [History Last Taken 06/29/21] sertraline 75 mg PO DAILY 06/29/21 [History Last Taken 06/29/21] acetaminophen [Tylenol] 650 mg PO Q4H PRN PRN #0 tab 07/06/21 [Rx Last Taken Unknown] potassium chloride [Klor-Con M20] 20 meq PO BIDCM 30 Days #0 tab 07/06/21 [Rx Last Taken Unknown] Allergy/AdvReac Type Severity Reaction Status Date / Time morphine Allergy NEEDS Verified 07/16/21 00:54 FOLLOW-UP shellfish derived Allergy NEEDS Verified 07/16/21 00:54 FOLLOW-UP tositumomab Allergy NEEDS Verified 07/16/21 00:54 FOLLOW-UP vancomycin Allergy NEEDS Verified 07/16/21 00:54 FOLLOW-UP Surgical History S/P implantation of automatic cardioverter/defibrillator (AICD) Social History housing: half-way Smoking Status: Never smoker alcohol intake: never substance use type: does not use ROS ROS ED Review of Systems ROS Unobtainable: due to mental status EXAM Physical Exam Narrative Exam Narrative: Patient is unresponsive laying in the bed. She is pale cold and has agonal respirations Const Vital Signs: 07/16/21 00:52 07/16/21 00:59 07/16/21 01:56 Temperature 97 F L Temperature Source Temporal Pulse Rate 101 H 110 H Respiratory Rate 5 L 16 Blood Pressure 49/34 L 44/26 L 97/31 L Blood Pressure Mean 39 32 53 Pulse Ox 88 Oxygen Delivery Method Room Air 07/16/21 02:51 Temperature Temperature Source Pulse Rate 108 H Respiratory Rate 16 Blood Pressure 79/37 L Blood Pressure Mean 51 Pulse Ox Oxygen Delivery Method Positive well nourished and well developed General Appearance ED: well developed and pallor HEENT Reports normocephalic, head/scalp atraumatic and dry mucous membranes Mouth ED: Yes dry mucous membranes Mouth: dry mucous membranes Eyes General Eye ED: Yes pale conjunctiva Neck no lymphadenopathy, supple and no JVD Resp Resp Narrative: Patient has agonal rhonchorous respirations Cardio regular rate and no murmurs Rate: tachycardic GI normal to inspection, nondistended, normoactive bowel sounds and non-tender Palpation: soft Back/Spine no CVA tenderness and normal ROM Extremity normal to inspection General Extremety ED: Negative for edema General Extremity: Negative for edema Neuro Neuro Narrative: Patient has minimal response to pain Psych Mood & Affect: depressed and tearful Skin no rashes or lesions noted and no wounds General Skin Exam: pallor MDM MDM MDM Narrative Medical decision making narrative: Multiple attempts were made to start an IV. We were eventually successful in obtaining 1 and the patient received a amp of D50. We are able to get in contact with her family who unfortunately is unable to come to the hospital tonight. They would like to make her DNR comfort care only. Hospice if needed. Even after the D50 the patient is not responsive. She remains tachycardic and hypotensive. She I have given her morphine and Zofran as well as some Robinul. At approximately 0400 hrs. we initiated hospice consult. Lab Data Labs: Laboratory Results - last 24 hr 07/16/21 01:21 POC Glucose < 10 L* Discharge Plan Triage Chief Complaint: Unresponsive ED Provider: Doc Tolentino Dx/Rx/DC Orders Clinical Impression: Hypoglycemia, Encephalopathy acute, Acute hypotension Prescriptions: No Action sertraline 25 mg Tablet 75 mg PO DAILY RF: 0 buspirone 5 mg Tablet 5 mg PO TID RF: 0 oxybutynin chloride 10 mg Tablet Extended Release 24hr 10 mg PO QHS RF: 0 ondansetron HCl [Zofran] 4 mg Tablet 4 mg PO Q8H PRN PRN (Reason: Nausea) RF: 0 Lactobacillus acidophilus Tablet 100 mmu cells PO QHS RF: 0 pantoprazole 40 mg Tablet,Delayed Release (Dr/Ec) 40 mg PO BID RF: 0 lamotrigine [Lamictal] 100 mg Tablet 100 mg PO QHS RF: 0 loratadine 10 mg Tablet 10 mg PO QHS RF: 0 atorvastatin 40 mg Tablet 40 mg PO QHS RF: 0 melatonin 3 mg Tablet 6 mg PO QHS RF: 0 ferrous sulfate 325 mg (65 mg iron) Tablet 325 mg PO QHS RF: 0 gabapentin 300 mg Capsule 300 mg PO QHS RF: 0 insulin regular human 100 unit/mL (3 mL) Insulin Pen See Protocol unit subcut ACHS RF: 0 acetaminophen [Tylenol] 325 mg Tablet 650 mg PO Q4H PRN PRN (Reason: Fever, pain 1-10/10) Qty: 0 RF: 0 potassium chloride [Klor-Con M20] 20 mEq Tablet,Er Particles/Crystals 20 meq PO BIDCM 30 Days Qty: 0 RF: 0 Primary Care Provider: Clayton Pollard Referrals: Clayton Pollard MD [Primary Care Provider] - Disposition Disposition: Hospice in Medical Facility Discharge Location: [facility]
[2021-07-16 00:59] VITALS: BP 44/26
[2021-07-16] MEDS: Dextrose 50%-Water 25 GM/50 ML DISP.SYRIN IV (01:28)
[2021-07-16] MEDS: 0.9% Normal Saline 1,000 ML 999 ML IV (01:28)
[2021-07-16 01:31] LABS: Bedside Glucose < 10 mg/dL (70-110)
--- NOTE | 2021-07-16 01:41 | ED.RN ---
PT presents with agonal breathing. Multiple RN and MD to bedside. Multiple attempts at IV including EG. Finally obtained IV and dextrose was given. We will try to reach family by phone.
--- NOTE | 2021-07-16 01:44 | ED.RN ---
TELEPHONE CALLED PLACED TO DAUGHTER JULI AND SISTER WILMAN. PER JULI AND WILMAN, THEY WOULD LIKE HER TO BE KEPT COMFORTABLE WITH NO LIFE SAVING MEASURES. THEY DECLINE ANY FLUIDS OR MEDICATIONS EXCEPT FOR COMFORT MEDICATIONS. NO COMPRESSIONS OR CPR. THEY ARE UNABLE TO COME TO THE HOSPITAL TO SEE HER. THEY REQUEST A PHONE CALL FOR UPDATES ON HER CONDITION. THEY REQUEST [facility] IN [place] TO BE USED FOR SERVICES IF/WHEN SHE PASSES. THEY CAN BE REACHED AT SISTER WILMAN'S PHONE, .
[2021-07-16 01:56] VITALS: BP 97/31; PULSE 110; RESP 16
[2021-07-16] MEDS: Ondansetron 4 MG/2 ML Vial IV ×2 (02:44→05:27)
[2021-07-16] MEDS: Morphine 4 MG/ML Syringe IV ×2 (02:45→05:26)
[2021-07-16 02:51] VITALS: BP 79/37; PULSE 108; RESP 16
[2021-07-16 03:00] VITALS: BP 66/35; PULSE 108; RESP 8; O2SAT 76
[2021-07-16] MEDS: Glycopyrrolate 0.2 MG/ML Vial 0.1 MG IV (05:27)
[2021-07-16 05:32] VITALS: BP 69/36; PULSE 110; RESP 10; O2SAT 68
[2021-07-17 09:56] LABS: Bedside Glucose < 10 mg/dL (70-110)
== END 2021-07-16 06:46 | disposition hospice, inpatient (51) ==
PROVIDERS: Emergency Provider Emergency Medicine; PCP Family Medicine
DX: E11.649 Type 2 diabetes mellitus with hypoglycemia without coma (principal); G93.40 Encephalopathy, unspecified; I95.9 Hypotension, unspecified; E11.22 Type 2 diabetes mellitus with diabetic chronic kidney disease; E78.5 Hyperlipidemia, unspecified; F31.9 Bipolar disorder, unspecified; D64.9 Anemia, unspecified; I13.0 Hypertensive heart and chronic kidney disease with heart failure and stage 1 through stage 4 chronic kidney disease, or unspecified chronic kidney disease; I42.9 Cardiomyopathy, unspecified; I48.0 Paroxysmal atrial fibrillation; I50.9 Heart failure, unspecified; F41.8 Other specified anxiety disorders; J44.9 Chronic obstructive pulmonary disease, unspecified; K21.9 Gastro-esophageal reflux disease without esophagitis; N18.30 Chronic kidney disease, stage 3 unspecified; Z66 Do not resuscitate; Z79.4 Long term (current) use of insulin; Z79.899 Other long term (current) drug therapy
CPT/HCPCS: 82962; 87426; 96361; 96374; 96375; 96376; 99285; J7030; A4216; J2405